=== PATIENT | male | born 1945 | race Caucasian/White ===

== ENCOUNTER 2016-07-26 13:52 | Outpatient (CLI) | payer MEDICARE, OTHER | END 2016-07-26 13:53 | disposition home or self-care (01) | DX: E11.9 Type 2 diabetes mellitus without complications (principal); E78.5 Hyperlipidemia, unspecified; I10 Essential (primary) hypertension; E03.9 Hypothyroidism, unspecified; R10.9 Unspecified abdominal pain; J44.9 Chronic obstructive pulmonary disease, unspecified; N40.1 Benign prostatic hyperplasia with lower urinary tract symptoms | CPT/HCPCS: 36415; 80053; 80061; 82043; 83036; 84443; 85025; G0103 ==

== ENCOUNTER 2016-08-06 10:56 | Outpatient (CLI) | payer MEDICARE, OTHER | END 2016-08-06 10:57 | disposition home or self-care (01) | DX: R10.9 Unspecified abdominal pain (principal); K21.9 Gastro-esophageal reflux disease without esophagitis ==

== ENCOUNTER 2016-10-02 12:02 | Outpatient (CLI) | payer MEDICARE, OTHER | END 2016-10-02 23:59 | DX: E03.9 Hypothyroidism, unspecified (principal) ==

== ENCOUNTER 2016-12-30 08:52 | Outpatient (CLI) | payer MEDICARE, OTHER ==
[2016-12-30 14:47] LABS: HEMOGLOBIN A1C 0.72 g/dL
== END 2016-12-30 08:53 | disposition home or self-care (01) ==
LOC: LAB.WCP 08:52
PROVIDERS: ATTEND Family Medicine
DX: E11.9 Type 2 diabetes mellitus without complications (principal)
CPT/HCPCS: 36415; 83036

== ENCOUNTER 2017-02-18 11:08 | Outpatient (CLI) | payer MEDICARE, OTHER ==
--- NOTE | 2017-02-18 17:11 | CT Report ---
HIGH-RESOLUTION CHEST CT WITHOUT CONTRAST: 02/18/2017 CLINICAL INDICATION: Exertional dyspnea, question interstitial lung disease. TECHNIQUE: Axial prone inspiratory, supine inspiratory, supine expiratory, 1 mm thick slices were ob tained every 20 mm, as well as a conventional noncontrast chest CT sequence. No previous CT is avail able for comparison. In accordance with CT protocol optimization, one or more of the following dose reduction techniques w ere utilized for this exam: automated exposure control, adjustment of mA and/or KV based on patient size, or use of iterative reconstructive technique. FINDINGS: The heart and great vessels demonstrate mild atherosclerotic calcification. No hilar or m ediastinal lymphadenopathy is present. The lungs demonstrate emphysema, with mild peripheral fibrosi s. Bibasilar bronchiectasis is present. No significant air trapping is seen. No suspicious pulmona ry nodule or mass lesion is appreciated. No effusion or pneumothorax is present. Limited evaluation of upper abdominal structures demonstrates normal adrenal glands. Osseous structures demonstrate de generative changes. IMPRESSION: EMPHYSEMA AND MILD FIBROSIS, WITH BIBASILAR BRONCHIECTASIS. NO EVIDENCE OF INTERSTITIAL LUNG DISEASE. JOB #: [id number] EXT JOB #:[id number]
== END 2017-02-18 11:09 | disposition home or self-care (01) ==
LOC: DI 11:08
PROVIDERS: ATTEND Internal Medicine Critical Care Medicine
DX: R06.09 Other forms of dyspnea (principal); J43.9 Emphysema, unspecified; J84.10 Pulmonary fibrosis, unspecified; J47.9 Bronchiectasis, uncomplicated; E66.01 Morbid (severe) obesity due to excess calories; E11.9 Type 2 diabetes mellitus without complications; Z87.891 Personal history of nicotine dependence
CPT/HCPCS: 71250; 93306

== ENCOUNTER 2017-04-04 15:25 | Outpatient (CLI) | payer MEDICARE, OTHER | END 2017-04-04 15:26 | disposition home or self-care (01) | LOC: LAB 15:25 | PROVIDERS: ATTEND Internal Medicine Critical Care Medicine | DX: J44.9 Chronic obstructive pulmonary disease, unspecified (principal) | CPT/HCPCS: 36415; 81599 ==

== ENCOUNTER 2017-04-22 08:00 | Outpatient (CLI) | payer MEDICARE, OTHER ==
[2017-04-22 19:19] LABS: CALCIUM 9.4 mg/dL (8.5-10.3); CREATININE 0.8 mg/dL (0.6-1.2); POTASSIUM 4.3 mmol/L (3.5-5.0)
[2017-04-22 20:45] LABS: HEMOGLOBIN A1C 0.69 g/dL
== END 2017-04-22 08:01 | disposition home or self-care (01) ==
LOC: LAB.WCP 08:00
PROVIDERS: ATTEND Family Medicine
DX: J44.9 Chronic obstructive pulmonary disease, unspecified (principal); E11.9 Type 2 diabetes mellitus without complications; I10 Essential (primary) hypertension; F32.9 Major depressive disorder, single episode, unspecified
CPT/HCPCS: 36415; 80048; 83036

== ENCOUNTER 2017-07-29 11:40 | Outpatient (CLI) | payer MEDICARE, OTHER ==
[2017-07-29 19:25] LABS: CALCIUM 8.8 mg/dL (8.5-10.3); CREATININE 0.8 mg/dL (0.6-1.2)
[2017-07-29 19:26] LABS: HB2 TOTAL 17.6 g/dL; HEMOGLOBIN A1C 1.06 g/dL; HEMOGLOBIN A1C % 7.7 % (4.6-6.2)
== END 2017-07-29 11:41 ==
LOC: LAB.WCP 11:40
PROVIDERS: ATTEND Family Medicine
DX: J44.9 Chronic obstructive pulmonary disease, unspecified (principal); E11.9 Type 2 diabetes mellitus without complications; I10 Essential (primary) hypertension; M51.36 Other intervertebral disc degeneration, lumbar region
CPT/HCPCS: 36415; 80048; 83036

== ENCOUNTER 2017-10-20 08:00 | Outpatient (CLI) | payer MEDICARE, OTHER ==
[2017-10-20 12:55] LABS: BASOPHILS % (AUTO) 0.5 %; EOSINOPHILS # (AUTO) 0.3 10^3/uL (0.0-0.7); EOSINOPHILS % (AUTO) 3.5 %; HGB - HEMOGLOBIN 15.7 g/dL (14.0-18.0); LYMPHOCYTES # (AUTO) 2.7 10^3/uL (1.5-3.5); MEAN CORPUSCULAR HEMOGLOBIN 30.1 pg (27.0-31.0); MEAN CORPUSCULAR HGB CONC 33.4 g/dL (32.0-36.0); MEAN CORPUSCULAR VOLUME 90.3 fL (80.0-94.0); MEAN PLATELET VOLUME 7.8 fL (7.4-11.4); MONOCYTES # (AUTO) 0.9 10^3/uL (0.0-1.0); MONOCYTES % (AUTO) 10.5 %; NEUTROPHILS # (AUTO) 4.8 10^3/uL (1.5-6.6); NEUTROPHILS % (AUTO) 54.5 %; PLT - PLATELET COUNT 198 10^3/uL (130-450); RED CELL DISTRIBUTION WIDTH 13.8 % (12.0-15.0); WHITE BLOOD COUNT 8.8 x10^3/uL (4.8-10.8)
[2017-10-20 13:12] LABS: HB2 TOTAL 18.5 g/dL; HEMOGLOBIN A1C 0.78 g/dL
[2017-10-20 13:14] LABS: ALBUMIN 4.3 g/dL (3.2-5.5); ALBUMIN/GLOBULIN RATIO 1.7 (1.0-2.2); ALKALINE PHOSPHATASE 45 IU/L (42-121); ALT ALANINE AMINOTRANSFERASE 52 IU/L (10-60); AST ASPARTATE AMINOTRANSFERASE 36 IU/L (10-42); BILIRUBIN,TOTAL 0.9 mg/dL (0.2-1.0); BUN - BLOOD UREA NITROGEN 13 mg/dL (6-20); CALCIUM 8.6 mg/dL (8.5-10.3); CARBON DIOXIDE - CO2 31 mmol/L (21-32); CHLORIDE 107 mmol/L (101-111); CHOL/HDL RATIO 4.4 (<5.0); CHOLESTEROL 128 mg/dL; CREATININE 0.8 mg/dL (0.6-1.2); GFR - MDRD 95 (>89); GLUCOSE 77 mg/dL (70-100); HDL CHOLESTEROL 29 mg/dL; LDL CHOLESTEROL,CALCULATED 65 mg/dL; LDL/HDL RATIO 2.2 (<3.6); SODIUM 142 mmol/L (135-145); TOTAL PROTEIN 6.8 g/dL (6.7-8.2); VLDL CHOLESTEROL 34 mg/dL
== END 2017-10-20 08:01 | disposition home or self-care (01) ==
LOC: LAB.WCP 08:00
PROVIDERS: ATTEND Family Medicine
DX: J44.9 Chronic obstructive pulmonary disease, unspecified (principal); E11.9 Type 2 diabetes mellitus without complications; E78.5 Hyperlipidemia, unspecified; I10 Essential (primary) hypertension; E03.9 Hypothyroidism, unspecified; G47.30 Sleep apnea, unspecified
CPT/HCPCS: 36415; 80053; 80061; 82043; 83036; 83721; 84443; 85025

== ENCOUNTER 2018-01-21 08:00 | Outpatient (CLI) | payer MEDICARE, OTHER ==
[2018-01-21 19:18] LABS: CALCIUM 9.3 mg/dL (8.5-10.3)
[2018-01-21 19:25] LABS: HB2 TOTAL 16.9 g/dL
[2018-01-21 21:33] LABS: HEMOGLOBIN A1C 0.78 g/dL; HEMOGLOBIN A1C % 6.4 % (4.6-6.2)
== END 2018-01-21 08:01 | disposition home or self-care (01) ==
LOC: LAB.WCP 08:00
PROVIDERS: ATTEND Family Medicine
DX: J44.9 Chronic obstructive pulmonary disease, unspecified (principal); E11.9 Type 2 diabetes mellitus without complications; I10 Essential (primary) hypertension
CPT/HCPCS: 36415; 80048; 83036

== ENCOUNTER 2018-04-15 15:30 | Outpatient (CLI) | payer MEDICARE, OTHER ==
[2018-04-15 15:49] LABS: BASOPHILS # (AUTO) 0.1 10^3/uL (0.0-0.1); BASOPHILS % (AUTO) 0.8 %; EOSINOPHILS # (AUTO) 0.9 10^3/uL (0.0-0.7); EOSINOPHILS % (AUTO) 9.7 %; HGB - HEMOGLOBIN 15.4 g/dL (14.0-18.0); LYMPHOCYTES # (AUTO) 1.9 10^3/uL (1.5-3.5); LYMPHOCYTES % (AUTO) 20.9 %; MEAN CORPUSCULAR HEMOGLOBIN 30.3 pg (27.0-31.0); MEAN CORPUSCULAR HGB CONC 33.9 g/dL (32.0-36.0); MEAN CORPUSCULAR VOLUME 89.4 fL (80.0-94.0); MEAN PLATELET VOLUME 7.3 fL (7.4-11.4); MONOCYTES # (AUTO) 0.8 10^3/uL (0.0-1.0); MONOCYTES % (AUTO) 9.1 %; NEUTROPHILS # (AUTO) 5.3 10^3/uL (1.5-6.6); NEUTROPHILS % (AUTO) 59.5 %; PLT - PLATELET COUNT 218 10^3/uL (130-450); RED BLOOD COUNT 5.07 10^6/uL (4.70-6.10); RED CELL DISTRIBUTION WIDTH 13.2 % (12.0-15.0); WHITE BLOOD COUNT 8.9 x10^3/uL (4.8-10.8)
[2018-04-15 16:02] LABS: ALBUMIN 4.3 g/dL (3.2-5.5); ALBUMIN/GLOBULIN RATIO 1.7 (1.0-2.2); BILIRUBIN,TOTAL 0.5 mg/dL (0.2-1.0); CALCIUM 8.9 mg/dL (8.5-10.3); CREATININE 0.7 mg/dL (0.6-1.2); TOTAL PROTEIN 6.9 g/dL (6.7-8.2)
== END 2018-04-15 15:31 | disposition home or self-care (01) ==
LOC: LAB 15:30
PROVIDERS: ATTEND Internal Medicine Gastroenterology
DX: Z01.812 Encounter for preprocedural laboratory examination (principal); I10 Essential (primary) hypertension; J44.9 Chronic obstructive pulmonary disease, unspecified
CPT/HCPCS: 36415; 80053; 85025; 93005

== ENCOUNTER 2018-11-18 08:00 | Outpatient (CLI) | payer MEDICARE, OTHER ==
[2018-11-18 12:51] LABS: BASOPHILS % (AUTO) 0.6 %; EOSINOPHILS # (AUTO) 0.3 10^3/uL (0.0-0.7); EOSINOPHILS % (AUTO) 4.7 %; HGB - HEMOGLOBIN 15.3 g/dL (14.0-18.0); LYMPHOCYTES # (AUTO) 1.6 10^3/uL (1.5-3.5); MEAN CORPUSCULAR HEMOGLOBIN 30.2 pg (27.0-31.0); MEAN CORPUSCULAR HGB CONC 33.5 g/dL (32.0-36.0); MEAN PLATELET VOLUME 7.5 fL (7.4-11.4); MONOCYTES # (AUTO) 0.8 10^3/uL (0.0-1.0); NEUTROPHILS # (AUTO) 4.6 10^3/uL (1.5-6.6); NEUTROPHILS % (AUTO) 62.7 %; PLT - PLATELET COUNT 202 10^3/uL (130-450); RED BLOOD COUNT 5.08 10^6/uL (4.70-6.10); RED CELL DISTRIBUTION WIDTH 12.8 % (12.0-15.0); WHITE BLOOD COUNT 7.4 x10^3/uL (4.8-10.8)
[2018-11-18 13:34] LABS: ALBUMIN 3.9 g/dL (3.2-5.5); ALBUMIN/GLOBULIN RATIO 1.6 (1.0-2.2); ALKALINE PHOSPHATASE 42 IU/L (42-121); ALT ALANINE AMINOTRANSFERASE 44 IU/L (10-60); AST ASPARTATE AMINOTRANSFERASE 31 IU/L (10-42); BILIRUBIN,TOTAL 0.6 mg/dL (0.2-1.0); BUN - BLOOD UREA NITROGEN 19 mg/dL (6-20); CALCIUM 8.8 mg/dL (8.5-10.3); CARBON DIOXIDE - CO2 25 mmol/L (21-32); CHLORIDE 105 mmol/L (101-111); CHOL/HDL RATIO 3.6 (<5.0); CHOLESTEROL 104 mg/dL; CREATININE 0.7 mg/dL (0.6-1.2); GFR - MDRD 110 (>89); GLUCOSE 140 mg/dL (70-100); HDL CHOLESTEROL 29 mg/dL; LDL CHOLESTEROL,CALCULATED 38 mg/dL; LDL/HDL RATIO 1.3 (<3.6); SODIUM 138 mmol/L (135-145); TOTAL PROTEIN 6.4 g/dL (6.7-8.2); VLDL CHOLESTEROL 37 mg/dL
[2018-11-18 13:47] LABS: HB2 TOTAL 16.4 g/dL; HEMOGLOBIN A1C 0.69 g/dL
== END 2018-11-18 08:01 | disposition home or self-care (01) ==
LOC: LAB.WCP 08:00
PROVIDERS: ATTEND Family Medicine
DX: E11.9 Type 2 diabetes mellitus without complications (principal); I10 Essential (primary) hypertension; E78.5 Hyperlipidemia, unspecified
CPT/HCPCS: 36415; 80053; 80061; 82043; 83036; 83721; 85025

== ENCOUNTER 2019-05-27 14:20 | Outpatient (CLI) | payer MEDICARE, OTHER | END 2019-05-27 23:59 | disposition home or self-care (01) | LOC: LAB.R 14:20 | PROVIDERS: ATTEND Family Medicine | DX: N39.0 Urinary tract infection, site not specified (principal) | CPT/HCPCS: 87086 ==

== ENCOUNTER 2020-03-01 10:40 | Outpatient (CLI) | payer MEDICARE, OTHER | END 2020-03-01 23:59 | disposition home or self-care (01) | LOC: LAB.R 10:40 | PROVIDERS: ATTEND Family Medicine | DX: N39.0 Urinary tract infection, site not specified (principal) | CPT/HCPCS: 87086 ==

== ENCOUNTER 2020-03-01 11:29 | Outpatient (CLI) | payer MEDICARE, OTHER | END 2020-03-01 23:59 | disposition critical access hospital (66) | LOC: EMS 11:29 | PROVIDERS: ATTEND Surgery | DX: R55 Syncope and collapse (principal); R03.1 Nonspecific low blood-pressure reading | CPT/HCPCS: A0425; A0427 ==

== ENCOUNTER 2020-03-01 11:55 | Inpatient (IN) | payer MEDICARE, OTHER ==
--- NOTE | 2020-03-01 12:05 | ED Physician Documentation ---
PD HPI SYNCOPE - Stated complaint Stated Complaint: SYNCOPE - Chief complaint Chief Complaint: Neuro - History obtained from History obtained from: Patient - History of Present Illness Witnessed: Witnessed Timing - onset: Today (At PMD for follow up of persistent UTI. Had been on Macrobid for 2 weeks. Urine cloudy with flank pain the past couple days. [place] weak. Got lightheaded with near syncope in office. BP low and improved with fluids.) Duration: Minutes Preceding symptoms: Other (right low back and hip pain.). 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 Pt says was doing okay then with malaise and noted dysuria again the past couple days. Had appt with PMD today regarding this, but got the near syncope in office and sent here by EMS.) Review of Systems Constitutional: reports: Myalgias, Fatigue. denies: Fever, Chills Nose: denies: Rhinorrhea / runny nose, Congestion Throat: denies: Sore throat Cardiac: denies: Chest pain / pressure, Palpitations Respiratory: denies: Dyspnea, Cough GI: reports: Nausea. denies: Abdominal Pain, Abdominal Swelling, Vomiting, Diarrhea : reports: Dysuria. denies: Hematuria (but was very cloudy), Discharge Skin: denies: Rash, Lesions Musculoskeletal: reports: Back pain (right low back and posterior right hip/pelvis with pain the past couple of days.) Neurologic: reports: Generalized weakness. denies: Focal weakness, Numbness PD PAST MEDICAL HISTORY - Past Medical History Cardiovascular: Hypertension, High cholesterol Respiratory: Asthma, COPD, Sleep apnea, CPAP use Endocrine/Autoimmune: Type 2 diabetes GI: Diverticulitis : Other HEENT: Other Psych: Depression Musculoskeletal: Osteoarthritis, Other Derm: None - Past Surgical History Past Surgical History: Yes General: Colonoscopy, EGD Ortho: Other HEENT: Tonsil/Adenoidectomy - Present Medications Home Medications: Ambulatory Orders Medication Instructions Recorded Confirmed Aspirin [Aspirin EC] 81 mg PO QDAC 11/11/12 03/01/20 Ipratropium/Albuterol [Combivent 2 puffs INH QID PRN MDD 6 PUFFS 11/11/12 03/01/20 Respimat] Lisinopril [Prinivil] 30 mg PO QAM 11/11/12 03/01/20 Pregabalin [Lyrica] 75 mg PO BID 11/11/12 03/01/20 Rosuvastatin Calcium [Crestor] 10 mg PO HS 11/11/12 03/01/20 Tiotropium [place] [Spiriva] 1 puffs INH DAILY 11/11/12 03/01/20 metFORMIN [Glucophage] 1,000 mg PO BID 11/11/12 03/01/20 Finasteride [Proscar] 5 mg PO DAILY 03/01/20 03/01/20 Fluticasone/Salmeterol [Advair 2 puffs INH DAILY 03/01/20 03/01/20 250-50 Diskus] Levothyroxine Sodium [Synthroid] 200 mcg PO DAILY 03/01/20 03/01/20 Tamsulosin [Flomax] 0.4 mg PO DAILY 03/01/20 03/01/20 - Allergies Allergies/Adverse Reactions: Allergies Allergy/AdvReac Type Severity Reaction Status Date / Time celecoxib [From Celebrex] Allergy Mild Rash Verified 03/01/20 12:04 Sulfa (Sulfonamide Allergy Mild unknown Verified 03/01/20 12:04 Antibiotics) doxycycline Allergy Rash Verified 03/01/20 12:04 gabapentin [From Neurontin] Allergy Rash Verified 03/01/20 12:04 - Living Situation Living Situation: reports: Alone Living Arrangement: reports: At home - Social History Does the pt smoke?: No Smoking Status: Never smoker Does the pt drink ETOH?: Yes PD ED PE NORMAL - Vitals Vital signs reviewed: Yes (relatively low BP even after IV fluids enroute. ) - General General: Alert and oriented X 3, No acute distress, Well developed/nourished - HEENT HEENT: Moist mucous membranes, Pharynx benign - Neck Neck: Supple, no meningeal sign, No adenopathy - Cardiac Cardiac: RRR, No murmur - Respiratory Respiratory: Clear bilaterally - Abdomen Abdomen: Normal bowel sounds, Soft, Non distended, No organomegaly, Other (some tender suprapubic and right CVA area. No guarding nor percussion tenderness. ) - Back Back: No spinal TTP - Derm Derm: Normal color, Warm and dry - Extremities Extremities: No tenderness to palpate, Normal ROM s pain, No edema, No calf tenderness / cord - Neuro Neuro: Alert and oriented X 3, No motor deficit, Normal speech Eye Opening: Spontaneous Motor: Obeys Commands Verbal: Oriented GCS Score: 15 Results - Vitals Vitals: Vital Signs - 24 hr 03/01/20 11:55 Temperature 36.5 C Heart Rate 86 Respiratory 18 Rate Blood Pressure 107/67 O2 Saturation 99 Oxygen O2 Source Room air - Labs Labs: Laboratory Tests 03/01/20 03/01/20 03/01/20 12:48 12:48 12:48 WBC 12.1 H RBC 4.86 Hgb 15.0 Hct 44.0 MCV 90.5 MCH 30.9 MCHC 34.1 RDW 13.1 Plt Count 305 MPV 8.8 Neut # (Auto) 8.8 H Lymph # (Auto) 1.1 L Emmet # (Auto) 1.7 H Eos # (Auto) 0.2 Baso # (Auto) 0.1 Absolute Nucleated RBC 0.00 Nucleated RBC % 0.0 Manual Slide Review Indicated Platelet Estimate Platelet Morphology RBC Morph Micro Appear 2+ ANISOCYTOSIS Sodium 134 L Potassium 6.0 H* Chloride 99 L Carbon Dioxide 25 Anion Gap 10.0 BUN 58 H Creatinine 1.7 H Estimated GFR (MDRD) 39 L Glucose 101 H Glycated Hemoglobin Estim Average Glucose Lactic Acid 1.1 Calcium 9.1 Magnesium 1.7 Total Bilirubin 0.8 AST 20 ALT 36 Alkaline Phosphatase 77 Troponin I High Sens B-Natriuretic Peptide Total Protein 6.9 Albumin 3.6 Globulin 3.3 Albumin/Globulin Ratio 1.1 Lipase 23 Urine Color Urine Clarity Urine pH Ur Specific Sula Urine Protein Urine Glucose (UA) Urine Ketones Urine Occult Blood Urine Nitrite Urine Bilirubin Urine Urobilinogen Ur Leukocyte Esterase Urine RBC Urine WBC Urine WBC Clumps Ur Squamous Epith Cells Amorphous Sediment Urine Bacteria Ur Microscopic Review Urine Culture Comments 03/01/20 03/01/20 03/01/20 12:48 12:48 12:48 WBC RBC Hgb Hct MCV MCH MCHC RDW Plt Count MPV Neut # (Auto) Lymph # (Auto) Emmet # (Auto) Eos # (Auto) Baso # (Auto) Absolute Nucleated RBC Nucleated RBC % Manual Slide Review Platelet Estimate Platelet Morphology RBC Morph Micro Appear Sodium Potassium Chloride Carbon Dioxide Anion Gap BUN Creatinine Estimated GFR (MDRD) Glucose Glycated Hemoglobin 5.5 Estim Average Glucose 111 H Lactic Acid Calcium Magnesium Total Bilirubin AST ALT Alkaline Phosphatase Troponin I High Sens 5.0 B-Natriuretic Peptide 20 Total Protein Albumin Globulin Albumin/Globulin Ratio Lipase Urine Color Urine Clarity Urine pH Ur Specific [place]ula Urine Protein Urine Glucose (UA) Urine Ketones Urine Occult Blood Urine Nitrite Urine Bilirubin Urine Urobilinogen Ur Leukocyte Esterase Urine RBC Urine WBC Urine WBC Clumps Ur Squamous Epith Cells Amorphous Sediment Urine Bacteria Ur Microscopic Review Urine Culture Comments 03/01/20 03/01/20 03/01/20 14:05 14:20 15:15 WBC 11.1 H RBC 4.67 L Hgb 14.5 Hct 43.1 MCV 92.3 MCH 31.0 MCHC 33.6 RDW 13.2 Plt Count 278 MPV 8.8 Neut # (Auto) 7.7 H Lymph # (Auto) 1.3 L Emmet # (Auto) 1.7 H Eos # (Auto) 0.3 Baso # (Auto) 0.1 Absolute Nucleated RBC 0.00 Nucleated RBC % 0.0 Manual Slide Review Indicated Platelet Estimate NORMAL (130-450,000) Platelet Morphology 1+ LARGE PLATELETS RBC Morph Micro Appear NORMAL APPEARANCE Sodium Potassium 5.4 H Chloride Carbon Dioxide Anion Gap BUN Creatinine Estimated GFR (MDRD) Glucose Glycated Hemoglobin Estim Average Glucose Lactic Acid Calcium Magnesium Total Bilirubin AST ALT Alkaline Phosphatase Troponin I High Sens B-Natriuretic Peptide Total Protein Albumin Globulin Albumin/Globulin Ratio Lipase Urine Color YELLOW Urine Clarity CLOUDY Urine pH 5.5 Ur Specific Sula 1.025 Urine Protein 100 H Urine Glucose (UA) NEGATIVE Urine Ketones NEGATIVE Urine Occult Blood LARGE H Urine Nitrite POSITIVE H Urine Bilirubin NEGATIVE Urine Urobilinogen 0.2 (NORMAL) Ur Leukocyte Esterase LARGE H Urine RBC 6-10 H Urine WBC >25 H Urine WBC Clumps PRESENT Ur Squamous Epith Cells RARE Squamous Amorphous Sediment Rare Urine Bacteria Moderate H Ur Microscopic Review INDICATED Urine Culture Comments INDICATED 03/01/20 03/01/20 15:15 15:15 WBC RBC Hgb Hct MCV MCH MCHC RDW Plt Count MPV Neut # (Auto) Lymph # (Auto) Emmet # (Auto) Eos # (Auto) Baso # (Auto) Absolute Nucleated RBC Nucleated RBC % Manual Slide Review Platelet Estimate Platelet Morphology RBC Morph Micro Appear Sodium 134 L Potassium 5.6 H Chloride 100 L Carbon Dioxide 24 Anion Gap 10.0 BUN 56 H Creatinine 1.5 H Estimated GFR (MDRD) 46 L Glucose 100 Glycated Hemoglobin Estim Average Glucose Lactic Acid 0.7 Calcium 8.8 Magnesium Total Bilirubin 0.5 AST 18 ALT 35 Alkaline Phosphatase 74 Troponin I High Sens B-Natriuretic Peptide Total Protein 6.6 L Albumin 3.6 Globulin 3.0 Albumin/Globulin Ratio 1.2 Lipase Urine Color Urine Clarity Urine pH Ur Specific Sula Urine Protein Urine Glucose (UA) Urine Ketones Urine Occult Blood Urine Nitrite Urine Bilirubin Urine Urobilinogen Ur Leukocyte Esterase Urine RBC Urine WBC Urine WBC Clumps Ur Squamous Epith Cells Amorphous Sediment Urine Bacteria Ur Microscopic Review Urine Culture Comments - Rads (name of study) abd/pelvic CT Radiology: Prelim report reviewed (normal kidneys and ureters. mild thickened bladder wall c/w cystitis. Diverticulosis without diverticulitis. ), See rad report right hip/pelvis xray Radiology: Prelim report reviewed, EMP read contemporaneously PD MEDICAL DECISION MAKING - ED course Complexity details: re-evaluated patient, considered differential (general weakness, had low BP but is still relatively low after IV fluids. Has nasty urine, along with flank pain, so concern for impending sepsis. ), d/w patient Departure - Departure Disposition: 66 [facility] DC/Xfer Clinical Impression: TUNDE (acute kidney injury), Hyperkalemia, Transient hypotension, Near syncope UTI (urinary tract infection) Qualifiers: Urinary tract infection type: acute pyelonephritis Qualified Code(s): N10 - Acute pyelonephritis Condition: Stable Record reviewed to determine appropriate education?: Yes Discharge Date/Time: 03/01/20 16:18
[2020-03-01] MEDS ORDERED: SODIUM CHLORIDE 0.9% 1,000 ML IV STA ×2 (12:28→13:30)
[2020-03-01] MEDS ORDERED: IOVERSOL 320 100 ML VIAL IVP ONE ×2 (12:50→15:40)
[2020-03-01 12:56] LABS: BASOPHILS # (AUTO) 0.1 10^3/uL (0.0-0.1); BASOPHILS % (AUTO) 0.5 %; EOSINOPHILS # (AUTO) 0.2 10^3/uL (0.0-0.7); LYMPHOCYTES # (AUTO) 1.1 10^3/uL (1.5-3.5); LYMPHOCYTES % (AUTO) 9.1 %; MEAN CORPUSCULAR HEMOGLOBIN 30.9 pg (27.0-31.0); MEAN CORPUSCULAR HGB CONC 34.1 g/dL (32.0-36.0); MEAN CORPUSCULAR VOLUME 90.5 fL (80.0-94.0); MEAN PLATELET VOLUME 8.8 fL (7.4-11.4); MONOCYTES # (AUTO) 1.7 10^3/uL (0.0-1.0); MONOCYTES % (AUTO) 14.3 %; NEUTROPHILS # (AUTO) 8.8 10^3/uL (1.5-6.6); NEUTROPHILS % (AUTO) 73.4 %; PLT - PLATELET COUNT 305 10^3/uL (130-450); RED BLOOD COUNT 4.86 10^6/uL (4.70-6.10); RED CELL DISTRIBUTION WIDTH 13.1 % (12.0-15.0); WHITE BLOOD COUNT 12.1 x10^3/uL (4.8-10.8)
[2020-03-01 13:12] LABS: ALBUMIN 3.6 g/dL (3.2-5.5); ALBUMIN/GLOBULIN RATIO 1.1 (1.0-2.2); BILIRUBIN,TOTAL 0.8 mg/dL (0.2-1.0); CALCIUM 9.1 mg/dL (8.5-10.3); CREATININE 1.7 mg/dL (0.6-1.2); MAGNESIUM 1.7 mg/dL (1.7-2.8); TOTAL PROTEIN 6.9 g/dL (6.7-8.2)
[2020-03-01 13:20] LABS: RBC MORPHOLOGY (MULTIPLE) 2+ ANISOCYTOSIS (NORMAL)
[2020-03-01] MEDS ORDERED: HYDROmorphone 1 MG/ML CARPUJECT IVP STA ×2 (13:29→14:58)
--- NOTE | 2020-03-01 13:31 | XRAY Report ---
PROCEDURE: Hip w/Pelvis 2-3V RT INDICATIONS: right hip pain with walking TECHNIQUE: AP pelvis with lateral view(s) of the bilateral hip(s). COMPARISON: None. FINDINGS: Bones: No fractures or dislocations. Pelvic ring appears intact. No suspicious bony lesions. Mild to moderate bilateral degenerative hip joint space narrowing. Soft tissues: The visualized bowel gas pattern is normal. No suspicious soft tissue calcifications. IMPRESSION: No visualized acute fracture or dislocation. However, occult injury cannot be excluded. Recommend short interval imaging follow-up in 7-10 days as clinically indicated for additional evalua tion. No Reviewed by: Ena Astorga MD on 03/01/2020 1:30 PM PDT Approved by: Ena Astorga MD on 03/01/2020 1:30 PM PDT Station ID: [id number]
--- NOTE | 2020-03-01 14:40 | CT Report ---
PROCEDURE: Abdomen/Pelvis W INDICATIONS: abd/flank pain CONTRAST: IV CONTRAST: Optiray 320 ml: 100 PO CONTRAST: *NO PO CONTRAST TECHNIQUE: After the administration of IV contrast, 5 mm thick sections acquired from the diaphragms to the symp hysis. 5 mm thick coronal and sagittal reformats were acquired. For radiation dose reduction, the f ollowing was used: automated exposure control, adjustment of mA and/or kV according to patient size. COMPARISON: None. FINDINGS: Image quality: Excellent. ABDOMEN: Lung bases: Lung bases are clear. Emphysematous changes with bulla formation are identified. Heart s ize is normal. Solid organs: Liver mildly enlarged with steatosis. Spleen is unremarkable. Gallbladder demonstrate s a punctate minimal dependent calcification. No wall thickening Biliary system is non dilated. Galvan creas enhances normally. No adrenal nodules. Kidneys demonstrate normal size and enhancement, witho ut hydronephrosis. Left renal cysts. Peritoneum and bowel: Bowel loops demonstrate normal wall thickness and caliber. Appendix is unremar kable. Moderate right-sided colonic stool is present. Colonic diverticula are present. No free fluid or air. Nodes and vessels: No retroperitoneal or mesenteric adenopathy by size criteria. Aorta and inferior vena cava are normal in size. Miscellaneous: No ventral hernias. PELVIS: Genitourinary: Bladder wall demonstrates minimal diffuse thickening. Miscellaneous: No inguinal hernias or adenopathy. Bones: No suspicious bony lesions. No vertebral body compression fractures. IMPRESSION: 1. Diverticulosis. 2. Moderate right colonic stool. 3. No nephro or ureterolithiasis. 4. Minimal diffuse bladder wall thickening. This could be secondary to incompletely distended. Becki brian, recommend correlation to cystitis. Reviewed by: Ena Astorga MD on 03/01/2020 2:38 PM PDT Approved by: Ena Astorga MD on 03/01/2020 2:38 PM PDT Station ID: [id number]
[2020-03-01] MEDS ORDERED: cefTRIAXone 1 GM VIAL IVP STA (14:45)
[2020-03-01 14:56] LABS: BILIRUBIN,URINE NEGATIVE (NEGATIVE); GLUCOSE, URINE (UA) NEGATIVE (NEGATIVE); KETONES,URINE (UA) NEGATIVE (NEGATIVE); LEUKOCYTE ESTERASE, URINE LARGE (NEGATIVE); NITRITE,URINE POSITIVE (NEGATIVE); OCCULT BLOOD,URINE LARGE (NEGATIVE); PH,URINE 5.5 PH (5.0-7.5); PROTEIN,URINE 100 mg/dL (NEGATIVE); UROBILINOGEN,URINE 0.2 (NORMAL) E.U./dL (NORMAL)
[2020-03-01] MEDS ORDERED: GENTAMICIN 80MG VIAL 400 MG in SODIUM CHLORIDE 0.9% 100ML 100 ML IV STA (14:59)
[2020-03-01 15:00] LABS: CLARITY,URINE CLOUDY (CLEAR)
[2020-03-01 15:15] LABS: AMORPHOUS SEDIMENT,UR Rare /LPF; BACTERIA,URINE Moderate /HPF (None Seen); SQUAMOUS EPITHELIAL CELL,UR RARE Squamous (<= Few); WBC CLUMPS,URINE PRESENT
[2020-03-01] MEDS ORDERED: SODIUM CHLORIDE FLUSH 0.9% 10 ML SYRINGE IVP PRN (15:20)
[2020-03-01] MEDS ORDERED: GENTAMICIN IV STA (15:25)
[2020-03-01] MEDS ORDERED: SODIUM CHLORIDE 0.9% IV STA (15:25)
[2020-03-01 15:26] LABS: BASOPHILS # (AUTO) 0.1 10^3/uL (0.0-0.1); BASOPHILS % (AUTO) 0.6 %; EOSINOPHILS # (AUTO) 0.3 10^3/uL (0.0-0.7); EOSINOPHILS % (AUTO) 2.5 %; HGB - HEMOGLOBIN 14.5 g/dL (14.0-18.0); LYMPHOCYTES # (AUTO) 1.3 10^3/uL (1.5-3.5); LYMPHOCYTES % (AUTO) 11.3 %; MEAN CORPUSCULAR HGB CONC 33.6 g/dL (32.0-36.0); MEAN CORPUSCULAR VOLUME 92.3 fL (80.0-94.0); MEAN PLATELET VOLUME 8.8 fL (7.4-11.4); MONOCYTES # (AUTO) 1.7 10^3/uL (0.0-1.0); MONOCYTES % (AUTO) 14.9 %; NEUTROPHILS # (AUTO) 7.7 10^3/uL (1.5-6.6); NEUTROPHILS % (AUTO) 70.1 %; PLT - PLATELET COUNT 278 10^3/uL (130-450); RED BLOOD COUNT 4.67 10^6/uL (4.70-6.10); RED CELL DISTRIBUTION WIDTH 13.2 % (12.0-15.0); WHITE BLOOD COUNT 11.1 x10^3/uL (4.8-10.8)
[2020-03-01] MEDS ORDERED: IPRATROPIUM/ALBUTEROL 3 ML NEB INH PRN ×2 (15:35→15:39)
[2020-03-01 15:39] LABS: ALBUMIN 3.6 g/dL (3.2-5.5); ALBUMIN/GLOBULIN RATIO 1.2 (1.0-2.2); BILIRUBIN,TOTAL 0.5 mg/dL (0.2-1.0); CALCIUM 8.8 mg/dL (8.5-10.3); CREATININE 1.5 mg/dL (0.6-1.2); TOTAL PROTEIN 6.6 g/dL (6.7-8.2)
[2020-03-01] MEDS ORDERED: ALBUTEROL NEB 2.5 MG/3 ML INH PRN ×2 (15:40→17:13)
[2020-03-01] MEDS ORDERED: SODIUM POLYSTYRENE SULFONATE 15 GM/60 ML BOTTLE PO STA (15:45)
--- NOTE | 2020-03-01 15:46 | HISTORY & PHYSICAL EXAMINATION ---
Chief Complaint - Chief Complaint Chief Complaint: nearly-syncope History of Present Illness - Admitted From Admitted From:: ER - History Obtained From Records Reviewed: [facility] History obtained from: pt - History of Present Illness HPI Comment/Other: This is a 74 years old male with a past medical history significant for hypertension, hyperlipidemia, hypothyroidism, asthma, COPD, sleep apnea, CPAP use, diabetic type II, diverticulitis, depression, arthritis, BPH and urinary incontinence Who presents the ER for complaint nearly syncope. Patient report from last year February he beginning problem with urination and urinary incontinence. Patient reported he see his urologist for procedure of cystoscopy for his BPH and urinary incontinence, however urologist wanted patient treated for bladder infection first, patient was prescribed Macrobid for 2 weeks. But pt report he still had Urine cloudy with flank pain in the past couple days. Patient went to his PCP office, he [place] weak, Got lightheaded with near syncope in office. Patient denies loss of conscious, denies any injury. SBP was in the 70s BP low, then IVF were started and pt's SBP came up to 118. In routine laboratory test in the ER, patient was found potassium at 6.0, creatinine is at 1.7, patient baseline creatinine was 0.7. WBC was slightly elevated to 12.1. Urinalysis Indicated patient still has urinary tract infection. Patient had CAT scan of abdomen plus Plavix, and x-ray of hip Which show unremarkable. Patient denies chest pain, fever, chill, shortness of breating, abdominal pain, nausea, vomiting. Patient was admitted for further medical management. History - Past Medical History Cardiovascular: reports: Hypertension, High cholesterol Respiratory: reports: Asthma, COPD, Sleep apnea, CPAP use Neuro: reports: None Endocrine/Autoimmune: reports: Type 2 diabetes GI: reports: Diverticulitis : reports: Other HEENT: reports: Other Psych: reports: Depression Musculoskeletal: reports: Osteoarthritis, Other Derm: reports: None MRSA Hx?: No - Past Surgical History General: reports: Colonoscopy, EGD Ortho: reports: Other HEENT: reports: Tonsil/Adenoidectomy - Family & Social History Family History: Mother: Alive and Well, Father: Alive and Well Family History Comment/Other: Patient report his father at 98 years old with a natural cause, Her mother at age 94. He is window. He had 2 children, one at [place], another one at [place]. Both are healthy Social History Notes: Patient denies cigarette smoking, alcohol abuse, He was retired from service. - POLST Patient has POLST: No Meds/Allgy - Home Medications Home Medications: Ambulatory Orders Medication Instructions Recorded Confirmed Aspirin [Aspirin EC] 81 mg PO QDAC 11/11/12 03/01/20 Ipratropium/Albuterol [Combivent 2 puffs INH QID PRN MDD 6 PUFFS 11/11/12 03/01/20 Respimat] Lisinopril [Prinivil] 30 mg PO QAM 11/11/12 03/01/20 Pregabalin [Lyrica] 75 mg PO BID 11/11/12 03/01/20 Rosuvastatin Calcium [Crestor] 10 mg PO HS 11/11/12 03/01/20 Tiotropium [place] [Spiriva] 1 puffs INH DAILY 11/11/12 03/01/20 metFORMIN [Glucophage] 1,000 mg PO BID 11/11/12 03/01/20 Finasteride [Proscar] 5 mg PO DAILY 03/01/20 03/01/20 Fluticasone/Salmeterol [Advair 2 puffs INH DAILY 03/01/20 03/01/20 250-50 Diskus] Levothyroxine Sodium [Synthroid] 200 mcg PO DAILY 03/01/20 03/01/20 Tamsulosin [Flomax] 0.4 mg PO DAILY 03/01/20 03/01/20 - Allergies Allergies/Adverse Reactions: Allergies Allergy/AdvReac Type Severity Reaction Status Date / Time celecoxib [From Celebrex] Allergy Mild Rash Verified 03/01/20 12:04 Sulfa (Sulfonamide Allergy Mild unknown Verified 03/01/20 12:04 Antibiotics) doxycycline Allergy Rash Verified 03/01/20 12:04 gabapentin [From Neurontin] Allergy Rash Verified 03/01/20 12:04 Review of Systems - Constitutional Constitutional: denies: Fatigue, Fever, Chills, Malaise, Weakness, Poor appetite, Diaphoresis, Night sweats - Eyes Eyes: denies: Pain, Blurred vision, Spots in vision, Field loss, Vision loss, Dipolpia - Ears, Nose & Throat Ears, Nose & Throat: denies: Ear pain, Hearing aids, Vertigo, Nosebleeds, Nasal congestion, Postnasal drainage, Bleeding gums - Cardiovascular Cariovascular: reports: Lightheadedness, Syncope. denies: Irregular heart rate, Palpitations, Chest pain, Exertional dyspnea, Decr. exercise tolerance - Respiratory Respiratory: denies: Cough, Sputum production, Wheezing, Snoring, Hemoptysis, Orthopnea, SOB at rest, SOB with exertion - Gastrointestinal Gastrointestinal: denies: Abdominal pain, Abdominal distention, Constipation, Diarrhea, Rectal bleeding, Black stools, Bloody stools, Nausea, Vomiting, Víctor blood emesis - Genitourinary Genitourinary: reports: Incontinence. denies: Dysuria, Frequency, Urgency, Hematuria - Musculoskeletal Musculoskeletal: denies: Muscle pain, Muscle aches, Stiffness, Limited range of motion - Integumentary Integumentary: denies: Pruritis, Lesions, Pigment changes, Nail changes - Neurological Neurological: denies: General weakness, Focal weakness, Headache, Numbness, Memory problems, Pre-existing deficit, Abnormal gait, Seizures, Incoordination, Slurred speech - Psychiatric Psychiatric: denies: Suicidal, Delusions, Hallucinations, Homicidal - Endocrine Endocrine: denies: Polyuria, Polydypsia, Polyphagia - Hematologic/Lymphatic Hematologic/Lymphatic: denies: Anemia, Petechiae, Blood clots, Lymphadenopathy, Bleeding tendencies Exam - Vital Signs Vital Signs: Vital Signs x48h Temp Pulse Resp BP Pulse Ox 03/01/20 11:55 36.5 C 86 18 107/67 99 - Physical Exam General Appearance: positive: No acute distress, Alert. negative: Lethargic Eyes Bilateral: positive: Normal inspection, PERRL, No lid inflammation ENT: positive: ENT inspection nml, No signs of dehydration. negative: Purulent nasal drainage Neck: positive: Nml inspection, Thyroid nml, Trachea midline. negative: Thyromegaly, Stiff neck, Tracheal deviation Respiratory: positive: Chest non-tender, No respiratory distress, Breath sounds nml Cardiovascular: positive: Regular rate & rhythm, No murmur. negative: Tach ycardia, Bradycardia, Systolic murmur, Diastolic murmur Peripheral Pulses: positive: 2+ Abdomen: positive: Non-tender, No organomegaly, Nml bowel sounds, No distention. negative: Tenderness, Guarding, Rebound Back: positive: Nml inspection. negative: CVA tenderness (R), CVA tenderness (L) Skin: positive: Color nml, No rash, Warm, Dry. negative: Cyanosis, Diaphoresis, Pallor Extremities: positive: Non-tender, Nml appearance. negative: Calf tenderness, Santa's sign/cords Neurologic/Psychiatric: positive: Oriented x3, Motor nml, Sensation nml, Mood/affect nml. negative: Weakness, Sensory loss, Facial droop, Slurred/abnml speech, Depressed mood/affect Conclusion/Plan - Problem List (1) Near syncope Conclusion/Plan: Patient had near any syncope in his primary care office and his blood pressure dropped to 70s. Patient denies loss conscious or any injury. Patient creatinine is 1.7, patient creatinine usually is 0.7. Clinically patient present dehydration. We will check echo, we will continue chicken tender patient, It is likely caused by dehydration and poor perfusion. We will hold patient home blood pressure medicine. Patient was given intravenous fluid of two bags in the ER, we will continue give intravenous IV fluids, and laboratory geneticist and v ital signs monitor. fall precaution. (2) UTI (urinary tract infection) Conclusion/Plan: Patient is likely failed for oral antibiotics as out-pt. Urinalysis still indicated patient has a urinary tract infection. ER started with Rocephin for patient, we will continue Rocephin treated for urinary tract infection, UA culture is pending, we will follow-up Qualifiers: Urinary tract infection type: acute pyelonephritis Qualified Code(s): N10 - Acute pyelonephritis (3) Transient hypotension Conclusion/Plan: Patient had transient hypotension in the PCP office , then patient had nearly syncope in his primary care office. Troponin is negative for acute SC. it Is likely caused by patient dehydration. We will hydration to the patient with intravenous IV fluids. Hold home blood pressure medicine (4) TUNDE (acute kidney injury) Conclusion/Plan: Patient creatinine is 1.7, his base line creatinine is 0.7, patient clinically show dehydration, we will give patient intravenous IV fluids, hold nephrologic toxic agents, Continue laboratory geneticist (5) Hyperkalemia Conclusion/Plan: Patient potassium 6.0, likely caused by patient TUNDE and dehydration. We will give patient 1 time kayexalate, Continue hydration with intravenous IV fluids, continue laboratory geneticist. (6) BPH (benign prostatic hyperplasia) Conclusion/Plan: Patient has a history of BPH, we will resume home home medication Flomax and proscar (7) HTN (hypertension) Conclusion/Plan: Patient had transient hypotension now, we will hold the home medication lisinopril, continue intravenous IV fluids, continue vital signs monitor (8) Hypothyroidism Conclusion/Plan: We will check TSH, resume home Synthroid (9) COPD (chronic obstructive pulmonary disease) Conclusion/Plan: Patient has a history of COPD with asthma, we will resume home albuterol and Duoneb breathing treatment as needed (10) Weakness Conclusion/Plan: Patient present weakness and near syncope in his primary care office, we will consult with physical therapist and occupational therapist. - Lab Results Fish Bones: 03/01/20 15:15 03/01/20 15:15 Core Measures - Anticipated LOS I expect patient to be DC'd or transferred within 96 hours.: Yes - DVT/VTE - Prophylaxis VTE/DVT Device ordered at admit?: Yes VTE/DVT Prophylaxis med ordered at admit?: Yes
[2020-03-01 16:10] LABS: HB2 TOTAL 15.5 g/dL; HEMOGLOBIN A1C 0.57 g/dL; HEMOGLOBIN A1C % 5.5 % (4.6-6.2)
[2020-03-01 16:13] LABS: PLATELET ESTIMATE, MANUAL NORMAL (130-450,000) (NORMAL); PLATELET MORPHOLOGY 1+ LARGE PLATELETS (NORMAL); RBC MORPHOLOGY (MULTIPLE) NORMAL APPEARANCE (NORMAL)
--- NOTE | 2020-03-01 16:17 | PHARMACY PROGRESS NOTE ---
- Best Possible Medication History Admit Date and Time: 03/01/20 1520 Processed by: Pharmacy Medication History completed: Yes Patient Interview: Completed Secondary Source(s): Pharmacy records (PATIENT INTERVIEWED BY FRUIT TESTER. PATIENT ABLE TO CONFIRM SOME HOME MEDICATIONS, OTHER MEDICATIONS ADDED THROUGH PCP RECORDS @ DR. DINERO'S OFFICE ), Insurance records As the person ultimately responsible for medication therapy, providers are able to order a medication from an existing home medication list in [facility] via the "Reconcile Routine" prior to Confirmation of that medication by media production support manager. Such practice is discouraged except when the physician, in their clinical judgment, deems that a medical need exists for a medication without regard to previous use.
[2020-03-01] MEDS: SODIUM CHLORIDE 0.9% 1,000 ML IV SCH (17:16)
[2020-03-01] MEDS: INSULIN ASPART 300 UNIT/3 ML PEN SUBQ SCH ×2 (17:16→21:46)
[2020-03-01] MEDS: SODIUM CHLORIDE FLUSH 0.9% 10 ML SYRINGE IVP SCH (17:16)
[2020-03-01] MEDS: HYDROcod/ACETAM 5/325 MG TABLET PO PRN (17:26)
[2020-03-01] MEDS: BUDESONIDE 0.5 MG/2 ML NEB INH SCH (19:27)
[2020-03-01] MEDS: FORMOTEROL FUMARATE NEB 20 MCG/2 ML INH SCH (19:27)
[2020-03-01] MEDS: ONDANSETRON 4 MG/2 ML VIAL IVP PRN (21:09)
[2020-03-01] MEDS: PREGABALIN 25 MG CAPSULE PO SCH (21:39)
[2020-03-01] MEDS: HYDROmorphone 1 MG/ML CARPUJECT IVP PRN (21:39)
[2020-03-01] MEDS: HEPARIN 5,000 UNIT/ML VIAL SUBQ SCH (21:41)
[2020-03-02] MEDS: SODIUM CHLORIDE FLUSH 0.9% 10 ML SYRINGE IVP SCH ×3 (00:17→17:23)
[2020-03-02] MEDS: HYDROcod/ACETAM 5/325 MG TABLET PO PRN ×2 (00:18→11:26)
[2020-03-02] MEDS: ACETAMINOPHEN 325 MG TABLET PO PRN ×2 (00:18→11:39)
[2020-03-02] MEDS: SODIUM CHLORIDE 0.9% 1,000 ML IV SCH (00:22)
[2020-03-02 05:10] LABS: BASOPHILS # (AUTO) 0.1 10^3/uL (0.0-0.1); BASOPHILS % (AUTO) 0.5 %; EOSINOPHILS # (AUTO) 0.1 10^3/uL (0.0-0.7); EOSINOPHILS % (AUTO) 0.8 %; HGB - HEMOGLOBIN 14.6 g/dL (14.0-18.0); LYMPHOCYTES # (AUTO) 0.4 10^3/uL (1.5-3.5); LYMPHOCYTES % (AUTO) 3.4 %; MEAN CORPUSCULAR HEMOGLOBIN 30.4 pg (27.0-31.0); MEAN CORPUSCULAR VOLUME 92.1 fL (80.0-94.0); MEAN PLATELET VOLUME 8.8 fL (7.4-11.4); MONOCYTES # (AUTO) 1.2 10^3/uL (0.0-1.0); MONOCYTES % (AUTO) 9.7 %; NEUTROPHILS # (AUTO) 10.5 10^3/uL (1.5-6.6); PLT - PLATELET COUNT 266 10^3/uL (130-450); RED BLOOD COUNT 4.81 10^6/uL (4.70-6.10); RED CELL DISTRIBUTION WIDTH 13.1 % (12.0-15.0); WHITE BLOOD COUNT 12.3 x10^3/uL (4.8-10.8)
[2020-03-02 05:20] LABS: CALCIUM 8.7 mg/dL (8.5-10.3); CREATININE 1.2 mg/dL (0.6-1.2); MAGNESIUM 1.6 mg/dL (1.7-2.8); PHOSPHORUS 3.6 mg/dL (2.5-4.6)
[2020-03-02] MEDS: PANTOPRAZOLE 40 MG TABLET PO SCH (06:00)
[2020-03-02] MEDS ORDERED: LEVOTHYROXINE 100 MCG TABLET PO SCH (07:00)
[2020-03-02] MEDS ORDERED: DEXTROSE 10% 250 ML IV ONE (07:03)
[2020-03-02] MEDS ORDERED: INSULIN REGULAR HUMAN 300 UNIT/3 ML VIAL IVP ONE (07:03)
[2020-03-02] MEDS ORDERED: MAGNESIUM OXIDE 400 MG TABLET PO SCH (08:00)
[2020-03-02] MEDS: INSULIN ASPART 300 UNIT/3 ML PEN SUBQ SCH ×4 (08:02→21:56)
[2020-03-02] MEDS: FORMOTEROL FUMARATE NEB 20 MCG/2 ML INH SCH ×2 (08:10→21:06)
[2020-03-02] MEDS: BUDESONIDE 0.5 MG/2 ML NEB INH SCH ×2 (08:11→21:06)
[2020-03-02] MEDS: PREGABALIN 25 MG CAPSULE PO SCH ×2 (08:16→21:55)
[2020-03-02] MEDS: SACCHAROMYCES BOULARDII 250 MG CAPSULE PO SCH ×2 (08:16→18:03)
[2020-03-02] MEDS: HYDROmorphone 1 MG/ML CARPUJECT IVP PRN (08:16)
[2020-03-02] MEDS: FINASTERIDE 5 MG TABLET PO SCH (08:17)
[2020-03-02] MEDS: ASPIRIN CHEW 81 MG TABLET PO SCH (08:17)
[2020-03-02] MEDS: ONDANSETRON 4 MG/2 ML VIAL IVP PRN (08:31)
[2020-03-02] MEDS ORDERED: cefTRIAXone 2 GM in SODIUM CHLORIDE 0.9% MINIBAG 100 ML IV SCH (09:00)
[2020-03-02] MEDS: HEPARIN 5,000 UNIT/ML VIAL SUBQ SCH ×2 (11:17→21:55)
[2020-03-02] MEDS: TAMSULOSIN 0.4 MG CAPSULE PO SCH (11:38)
[2020-03-02] MEDS ORDERED: SODIUM CHLORIDE 0.9% 1,000 ML IV SCH ×2 (13:00→15:01)
--- NOTE | 2020-03-02 15:05 | PROVIDER PROGRESS NOTE ---
Assessment/Plan - Problem List (1) Fever Assessment/Plan: Patient Had fever 39.3 degrees on today, WBC still slightly elevated, patient has a normal blood pressure. Blood culture is still pending but the urinalysis indicated negative rods in the culture, sensitivities pending. Order chest x-ray is pending. Patient might have bacteremia. At this time we continue Rocephin antibiotics, Continue gently intravenous IV fluids. Give patient Tylenol as needed. If patient continue to have fever on tomorrow, then we will do the blood culture again. (2) Near syncope Conclusion/Plan: 03/02, Patient has nearly syncope, he denied loss of conscious. EKG show sinus rhythm. Troponin negative. Echo review preserved EF, but with moderate pulmonary hypertension and moderate Abnormal right heart pressure. It is likely caused by significantly Dehydration and infection, possible bacteremia. Patient had near any syncope in his primary care office and his blood pressure dropped to 70s. Patient denies loss conscious or any injury. Patient creatinine is 1.7, patient creatinine usually is 0.7. Clinically patient present dehydration. We will check echo, we will continue front desk monitor patient, It is likely caused by dehydration and poor perfusion. We will hold patient home blood pressure medicine. Patient was given intravenous fluid of two bags in the ER, we will continue give intravenous IV fluids, and gambling monitor and vital signs monitor. fall precaution. (3) UTI (urinary tract infection) Conclusion/Plan: 03/02Urine culture show negative rods, sensitivity is pending, We will continue Rocephin. Patient is likely failed for oral antibiotics as out-pt. Urinalysis still indicated patient has a urinary tract infection. ER started with Rocephin for patient, we will continue Rocephin treated for urinary tract infection, UA culture is pending, we will follow-up (4) Transient hypotension Conclusion/Plan: 820,Resolved Patient had transient hypotension in the PCP office , then patient had nearly syncope in his primary care office. Troponin is negative for acute NE. it Is likely caused by patient dehydration. We will hydration to the patient with intravenous IV fluids. Hold home blood pressure medicine (5) TUNDE (acute kidney injury) Conclusion/Plan: 820,Significantly improved, creatinine 1.2 from previous 1.7 Patient creatinine is 1.7, his base line creatinine is 0.7, patient clinically show dehydration, we will give patient intravenous IV fluids, hold nephrologic toxic agents, Continue gambling monitor (6) Hyperkalemia Conclusion/Plan: 820, patient potassium still 5.6 even after Kayexalate, order Order 5 units insulin, Continue gambling monitor Patient potassium 6.0, likely caused by patient TUNDE and dehydration. We will give patient 1 time kayexalate, Continue hydration with intravenous IV fluids, continue gambling monitor. (7) BPH (benign prostatic hyperplasia) Conclusion/Plan: Patient has a history of BPH, we will resume home home medication Flomax and proscar (8) HTN (hypertension) Conclusion/Plan: Patient had transient hypotension now, we will hold the home medication lisino pril, continue intravenous IV fluids, continue vital signs monitor (9) Hypothyroidism Conclusion/Plan: 820, TSH is low, reduced Synthroid to 175 mcg daily,Follow-up PCP for further management We will check TSH, resume home Synthroid (10) COPD (chronic obstructive pulmonary disease) Conclusion/Plan: 820, stable, continue home medication and breathing treatment as needed Patient has a history of COPD with asthma, we will resume home albuterol and Duoneb breathing treatment as needed (11) Weakness Conclusion/Plan: Patient present weakness and near syncope in his primary care office, we will consult with physical therapist and occupational therapist. (3) UTI (urinary tract infection) Qualifiers: Urinary tract infection type: acute pyelonephritis Qualified Code(s): N10 - Acute pyelonephritis - Current Meds Current Meds: Current Medications Generic Name Dose Route Start Last Admin Trade Name Freq PRN Reason Stop Dose Admin Acetaminophen 650 mg 03/01/20 15:20 03/02/20 11:39 Tylenol PO 650 mg Q4HR PRN Administration Pain 1 to 4 Hydrocodone Bitart/Acetaminophen 1 tab 03/01/20 17:14 03/02/20 11:26 [place] 5/325 PO 1 tab Q4HR PRN Administration PAIN Aspirin 81 mg 03/02/20 09:00 03/02/20 08:17 St Aspirin PO 81 mg DAILY [facility] Administration Budesonide 0.5 mg 03/01/20 19:00 03/02/20 08:11 Pulmicort INH 0.5 mg RTBID [facility] Administration Finasteride 5 mg 03/02/20 09:00 03/02/20 08:17 Proscar PO 5 mg DAILY [facility] Administration Formoterol Fumarate 20 mcg 03/01/20 19:00 03/02/20 08:10 Perforomist INH 20 mcg RTBID [facility] Administration Heparin Sodium (Porcine) 5,000 unit 03/01/20 21:00 03/02/20 11:17 SUBQ 5,000 unit BID [facility] Administration Hydromorphone HCl 1 mg 03/01/20 18:00 03/02/20 08:16 Dilaudid Inj Carp IVP 1 mg Q4HR PRN Administration PAIN Ceftriaxone Sodium 2 gm/ 100 mls @ 200 mls/hr 03/02/20 09:00 03/02/20 13:10 Sodium Chloride IV Infused DAILY [facility] Infusion Insulin Aspart 1 - 5 unit 03/01/20 17:00 03/02/20 11:44 Novolog SUBQ Not Given 0800,1200,1700,2100 [facility] Protocol Ondansetron HCl 4 mg 03/01/20 15:20 03/02/20 08:31 Zofran Inj IVP 4 mg Q6HR PRN Administration Nausea / Vomiting Pantoprazole Sodium 40 mg 03/02/20 07:00 03/02/20 06:00 Protonix PO 40 mg QDAC [facility] Administration Pregabalin 75 mg 03/01/20 21:00 03/02/20 08:16 Lyrica PO 75 mg BID [facility] Administration Saccharomyces Boulardii 250 mg 03/02/20 08:00 03/02/20 08:16 Florastor PO 250 mg BIDWM [facility] Administration Sodium Chloride 10 ml 03/01/20 17:00 03/02/20 11:44 Normal Saline Flush 0.9% IVP 10 ml 0100,0900,1700 [facility] Administration Tamsulosin HCl 0.4 mg 03/02/20 09:00 03/02/20 11:38 Flomax PO 0.4 mg DAILY [facility] Administration - Lab Result Fish Bone Diagrams: 03/02/20 04:30 03/02/20 04:30 - Additional Planning My Orders: My Active Orders 03/01/20 15:20 Activity Orders [RC] Q2HR IO [RC] IOSHIFT Initiate Bowel Care Protocol [RC] .protocol Initiate Line Care Protocol [RC] QSHIFT Initiate Personal Care Protoco [RC] .protocol Oxygen Therapy [RC] Routine Telemetry- [RC] Q4HR Vital Signs [RC] 0800,1600,0000 Acetaminophen [Tylenol] 650 mg PO Q4HR PRN Ondansetron Inj [Zofran Inj] 4 mg IVP Q6HR PRN Sodium Chloride Flush 0.9% [Normal Saline Flush 0.9%] 10 ml IVP PRN PRN Code Status [OTHERS] Routine Condition of Patient [OTHERS] Routine DVT Prophylaxis [OTHERS] Routine 03/01/20 15:23 IV Insert [RC] .ONCE 03/01/20 15:24 SCDs [RC] QSHIFT 03/01/20 15:39 Ipratropium/Albuterol [Duoneb] 3 ml INH QID PRN 03/01/20 15:42 Blood Glucose Checks - Eating [RC] 0800,1200,1700,2100 Initiate Hypoglycemia Protocol [RC] .protocol 03/01/20 Dinner Carb-controlled Diet [DIET] 03/01/20 17:00 Insulin Aspart [NovoLOG] 1 - 5 unit SUBQ 0800,1200,1700,2100 Sodium Chloride Flush 0.9% [Normal Saline Flush 0.9%] 10 ml IVP 0100,0900,1700 03/01/20 17:13 Nebulizer/MDI Tx. [RC] .BID/ QID PRN/ Q4 PRN Albuterol 2.5 mg INH RTQ4H PRN 03/01/20 17:14 HYDROcod/ACETAM 5/325 [[place] 5/325] 1 tab PO Q4HR PRN 03/01/20 18:00 HYDROmorphone INJ CARP [Dilaudid Inj Carp] 1 mg IVP Q4HR PRN 03/01/20 19:00 Budesonide [Pulmicort] 0.5 mg INH RTBID Formoterol Fumarate [Perforomist] 20 mcg INH RTBID 03/01/20 21:00 Heparin 5,000 unit SUBQ BID Pregabalin [Lyrica] 75 mg PO BID 03/02/20 07:00 Pantoprazole [Protonix] 40 mg PO QDAC 03/02/20 08:00 Saccharomyces Boulardii [Florastor] 250 mg PO BIDWM 03/02/20 09:00 Aspirin Chewable [St Aspirin] 81 mg PO DAILY Finasteride [Proscar] 5 mg PO DAILY Tamsulosin [Flomax] 0.4 mg PO DAILY cefTRIAXone [Rocephin] 2 gm Sodium Chloride 0.9% Minibag [Normal Saline 0.9% Minibag] 100 ml IV DAILY 03/02/20 14:58 Chest 1 View X-Ray [XR] Routine 03/02/20 15:01 Sodium Chloride 0.9% [Normal Saline 0.9%] 1,000 ml IV 83.3 mls/hr 03/02/20 15:31 Echo Transthoracic Complete [ECHO] Routine 03/02/20 21:00 Metoprolol Tartrate [Lopressor] 25 mg PO BID 03/03/20 05:00 BMP - BASIC METABOLIC PANEL [CHEM] DAILYLAB CBC - COMP BLD CT W/AUTO DIFF [HEME] DAILYLAB LIPID Panel [CHEM] DAILYLAB MAGNESIUM [CHEM] DAILYLAB 03/03/20 07:00 Levothyroxine [Synthroid] 100 mcg PO QDAC Levothyroxine [Synthroid] 75 mcg PO QDAC 03/04/20 05:00 BMP - BASIC METABOLIC PANEL [CHEM] DAILYLAB CBC - COMP BLD CT W/AUTO DIFF [HEME] DAILYLAB 03/05/20 05:00 BMP - BASIC METABOLIC PANEL [CHEM] DAILYLAB CBC - COMP BLD CT W/AUTO DIFF [HEME] DAILYLAB 03/06/20 05:00 BMP - BASIC METABOLIC PANEL [CHEM] DAILYLAB CBC - COMP BLD CT W/AUTO DIFF [HEME] DAILYLAB Subjective - Subjective Patient Reports: Feeling Better Objective Vital Signs: Vital Signs - 24 hr 03/01/20 03/01/20 03/01/20 17:14 18:09 23:46 Temperature 36.6 C 36.6 C Heart Rate 78 81 Heart Rate [ Activity] Heart Rate [ 78 Monitoring electrodes] Heart Rate [ Supine] Respiratory 16 16 18 Rate Blood Pressure [Activity] Blood Pressure 129/73 [Right Brachial artery] Blood Pressure [Supine] O2 Saturation 94 94 03/02/20 03/02/20 03/02/20 00:15 00:30 03:25 Temperature 37.9 C H 37.4 C 37.1 C Heart Rate Heart Rate [ Activity] Heart Rate [ 103 H 92 Monitoring electrodes] Heart Rate [ Supine] Respiratory 18 18 Rate Blood Pressure [Activity] Blood Pressure 133/59 H 109/79 [Right Brachial artery] Blood Pressure [Supine] O2 Saturation 94 94 03/02/20 03/02/20 03/02/20 07:50 08:25 10:45 Temperature Heart Rate 84 Heart Rate [ 106 H Activity] Heart Rate [ 86 Monitoring electrodes] Heart Rate [ 102 H Supine] Respiratory 16 18 Rate Blood Pressure 153/81 H [Activity] Blood Pressure 113/61 [Right Brachial artery] Blood Pressure 152/62 H [Supine] O2 Saturation 95 03/02/20 03/02/20 03/02/20 10:50 11:19 13:03 Temperature 39.3 C H 37.2 C Heart Rate Heart Rate [ 106 H Activity] Heart Rate [ 98 92 Monitoring electrodes] Heart Rate [ 102 H Supine] Respiratory 18 18 Rate Blood Pressure 153/81 H [Activity] Blood Pressure 136/110 H [Right Brachial artery] Blood Pressure 152/62 H [Supine] O2 Saturation 92 92 Oxygen O2 Source Nasal cannula I&O (Last 24 Hrs): Intake and Output Totals x24h 02/29/20 03/01/20 03/02/20 23:59 23:59 23:59 Intake Total 3461.25 2317.5 Output Total 500 200 Balance 2961.25 2117.5 General: Alert, Oriented x3, Mild distress HEENT: Atraumatic Neck: Supple Lymphatic: no adenopathy Neuro: Alert, Non Focal, Oriented Times 3 Cardiovascular: Regular rate, Normal S1, Normal S2 Respiratory: Chest non-tender, No respiratory distress Abdomen: Normal bowel sounds, Soft Extremities: Normal pulses - Results Results: Laboratory Results WBC 12.3 x10^3/uL (4.8-10.8) H 03/02/20 04:30 RBC 4.81 10^6/uL (4.70-6.10) 03/02/20 04:30 Hgb 14.6 g/dL (14.0-18.0) 03/02/20 04:30 Hct 44.3 % (42.0-52.0) 03/02/20 04:30 MCV 92.1 fL (80.0-94.0) 03/02/20 04:30 MCH 30.4 pg (27.0-31.0) 03/02/20 04:30 MCHC 33.0 g/dL (32.0-36.0) 03/02/20 04:30 RDW 13.1 % (12.0-15.0) 03/02/20 04:30 Plt Count 266 10^3/uL (130-450) 03/02/20 04:30 MPV 8.8 fL (7.4-11.4) 03/02/20 04:30 Neut # (Auto) 10.5 10^3/uL (1.5-6.6) H 03/02/20 04:30 Lymph # (Auto) 0.4 10^3/uL (1.5-3.5) L 03/02/20 04:30 Menard # (Auto) 1.2 10^3/uL (0.0-1.0) H 03/02/20 04:30 Eos # (Auto) 0.1 10^3/uL (0.0-0.7) 03/02/20 04:30 Baso # (Auto) 0.1 10^3/uL (0.0-0.1) 03/02/20 04:30 Absolute Nucleated RBC 0.00 x10^3/uL 03/02/20 04:30 Nucleated RBC % 0.0 /100WBC 03/02/20 04:30 Manual Slide Review Indicated 03/01/20 15:15 Platelet Estimate NORMAL (130-450,000) (NORMAL) 03/01/20 15:15 Platelet Morphology 1+ LARGE PLATELETS (NORMAL) 03/01/20 15:15 RBC Morph Micro Appear NORMAL APPEARANCE (NORMAL) 03/01/20 15:15 Sodium 136 mmol/L (135-145) 03/02/20 04:30 Potassium 5.6 mmol/L (3.5-5.0) H 03/02/20 04:30 Chloride 104 mmol/L (101-111) 03/02/20 04:30 Carbon Dioxide 23 mmol/L (21-32) 03/02/20 04:30 Anion Gap 9.0 (6-13) 03/02/20 04:30 BUN 42 mg/dL (6-20) H 03/02/20 04:30 Creatinine 1.2 mg/dL (0.6-1.2) 03/02/20 04:30 Estimated GFR (MDRD) 59 (>89) L 03/02/20 04:30 Glucose 133 mg/dL (70-100) H 03/02/20 04:30 Glycated Hemoglobin 5.5 % (4.6-6.2) 03/01/20 12:48 Estim Average Glucose 111 (70-100) H 03/01/20 12:48 Lactic Acid 0.7 mmol/L (0.5-2.2) 03/01/20 15:15 Calcium 8.7 mg/dL (8.5-10.3) 03/02/20 04:30 Phosphorus 3.6 mg/dL (2.5-4.6) 03/02/20 04:30 Magnesium 1.6 mg/dL (1.7-2.8) L 03/02/20 04:30 Total Bilirubin 0.5 mg/dL (0.2-1.0) 03/01/20 15:15 AST 18 IU/L (10-42) 03/01/20 15:15 ALT 35 IU/L (10-60) 03/01/20 15:15 Alkaline Phosphatase 74 IU/L (42-121) 03/01/20 15:15 Troponin I High Sens 5.0 ng/L (2.3-19.7) 03/01/20 12:48 B-Natriuretic Peptide 20 pg/mL (5-100) 03/01/20 12:48 Total Protein 6.6 g/dL (6.7-8.2) L 03/01/20 15:15 Albumin 3.6 g/dL (3.2-5.5) 03/01/20 15:15 Globulin 3.0 g/dL (2.1-4.2) 03/01/20 15:15 Albumin/Globulin Ratio 1.2 (1.0-2.2) 03/01/20 15:15 Lipase 23 U/L (22-51) 03/01/20 12:48 TSH 0.10 uIU/mL (0.34-5.60) L 03/02/20 04:30 Urine Color YELLOW 03/01/20 14:05 Urine Clarity CLOUDY (CLEAR) 03/01/20 14:05 Urine pH 5.5 PH (5.0-7.5) 03/01/20 14:05 Ur Specific [place] 1.025 (1.002-1.030) 03/01/20 14:05 Urine Protein 100 mg/dL (NEGATIVE) H 03/01/20 14:05 Urine Glucose (UA) NEGATIVE mg/dL (NEGATIVE) 03/01/20 14:05 Urine Ketones NEGATIVE mg/dL (NEGATIVE) 03/01/20 14:05 Urine Occult Blood LARGE (NEGATIVE) H 03/01/20 14:05 Urine Nitrite POSITIVE (NEGATIVE) H 03/01/20 14:05 Urine Bilirubin NEGATIVE (NEGATIVE) 03/01/20 14:05 Urine Urobilinogen 0.2 (NORMAL) E.U./dL (NORMAL) 03/01/20 14:05 Ur Leukocyte Esterase LARGE (NEGATIVE) H 03/01/20 14:05 Urine RBC 6-10 /HPF (0-5) H 03/01/20 14:05 Urine WBC >25 /HPF (0-3) H 03/01/20 14:05 Urine WBC Clumps PRESENT 03/01/20 14:05 Ur Squamous Epith Cells RARE Squamous (<= Few) 03/01/20 14:05 Amorphous Sediment Rare /LPF 03/01/20 14:05 Urine Bacteria Moderate /HPF (None Seen) H 03/01/20 14:05 Ur Microscopic Review INDICATED 03/01/20 14:05 Urine Culture Comments INDICATED 03/01/20 14:05 - Procedures Procedures: Procedures CATARAC PHACOEMULS/ASPIR (12/29/13) ENDOSC POLYPECTOMY OF LG INTEST (01/18/15) ESOPHAGOGASTRODUODENOSCOPY [EGD] W/CLOSED BIOPSY (03/07/15) INSERT LENS AT CATAR EXT (12/29/13) LID RECONSTRUCTION NOS (11/11/12) ABX Reporting Has patient been on IV antibiotics over the past 48 hours?: Yes Current Medications - Current Medications Current Medications: Active Medications Acetaminophen (Tylenol) 650 mg PO Q4HR PRN PRN Reason: Pain 1 to 4 Last Admin: 03/02/20 11:39 Dose: 650 mg Documented by: Hydrocodone Bitart/Acetaminophen ([place] 5/325) 1 tab PO Q4HR PRN PRN Reason: PAIN Last Admin: 03/02/20 11:26 Dose: 1 tab Documented by: Albuterol () 2.5 mg INH RTQ4H PRN PRN Reason: Wheezing Albuterol/Ipratropium (Duoneb) 3 ml INH QID PRN PRN Reason: Wheezing Aspirin (St Aspirin) 81 mg PO DAILY [facility] Last Admin: 03/02/20 08:17 Dose: 81 mg Documented by: Budesonide (Pulmicort) 0.5 mg INH RTBID [facility] Last Admin: 03/02/20 08:11 Dose: 0.5 mg Documented by: Finasteride (Proscar) 5 mg PO DAILY [facility] Last Admin: 03/02/20 08:17 Dose: 5 mg Documented by: Formoterol Fumarate (Perforomist) 20 mcg INH RTBID [facility] Last Admin: 03/02/20 08:10 Dose: 20 mcg Documented by: Heparin Sodium (Porcine) () 5,000 unit SUBQ BID [facility] Last Admin: 03/02/20 11:17 Dose: 5,000 unit Documented by: Hydromorphone HCl (Dilaudid Inj Carp) 1 mg IVP Q4HR PRN PRN Reason: PAIN Last Admin: 03/02/20 08:16 Dose: 1 mg Documented by: Ceftriaxone Sodium 2 gm/ (Sodium Chloride) 100 mls @ 200 mls/hr IV DAILY [facility] Last Infusion: 03/02/20 13:10 Dose: Infused Documented by: Sodium Chloride (Normal Saline 0.9%) 1,000 mls @ 83.3 mls/hr IV .Q12H1M [facility] Stop: 03/03/20 03:01 Insulin Aspart (Novolog) 1 - 5 unit SUBQ 0800,1200,1700,2100 [facility]; Protocol Last Admin: 03/02/20 11:44 Dose: Not Given Documented by: Levothyroxine Sodium (Synthroid) 100 mcg PO QDAC [facility] Levothyroxine Sodium (Synthroid) 75 mcg PO QDAC [facility] Metoprolol Tartrate (Lopressor) 25 mg PO BID [facility] Ondansetron HCl (Zofran Inj) 4 mg IVP Q6HR PRN PRN Reason: Nausea / Vomiting Last Admin: 03/02/20 08:31 Dose: 4 mg Documented by: Pantoprazole Sodium (Protonix) 40 mg PO QDAC [facility] Last Admin: 03/02/20 06:00 Dose: 40 mg Documented by: Pregabalin (Lyrica) 75 mg PO BID [facility] Last Admin: 03/02/20 08:16 Dose: 75 mg Documented by: Saccharomyces Boulardii (Florastor) 250 mg PO BIDWM [facility] Last Admin: 03/02/20 08:16 Dose: 250 mg Documented by: Sodium Chloride (Normal Saline Flush 0.9%) 10 ml IVP PRN PRN PRN Reason: NEEDED PER PROVIDER ORDERS Sodium Chloride (Normal Saline Flush 0.9%) 10 ml IVP 0100,0900,1700 [facility] Last Admin: 03/02/20 11:44 Dose: 10 ml Documented by: Tamsulosin HCl (Flomax) 0.4 mg PO DAILY [facility] Last Admin: 03/02/20 11:38 Dose: 0.4 mg Documented by: Aspirin [Aspirin EC] 81 mg PO QDAC 11/11/12 Ipratropium/Albuterol [Combivent Respimat] 2 puffs INH QID PRN MDD 6 PUFFS Lisinopril [Prinivil] 30 mg PO QAM 11/11/12 Pregabalin [Lyrica] 75 mg PO BID 11/11/12 Rosuvastatin Calcium [Crestor] 10 mg PO HS 11/11/12 Tiotropium [place] [Spiriva] 1 puffs INH DAILY 11/11/12 metFORMIN [Glucophage] 1,000 mg PO BID 11/11/12 Finasteride [Proscar] 5 mg PO DAILY 03/01/20 Fluticasone/Salmeterol [Advair 250-50 Diskus] 2 puffs INH DAILY 03/01/20 Levothyroxine Sodium [Synthroid] 200 mcg PO DAILY 03/01/20 Tamsulosin [Flomax] 0.4 mg PO DAILY 03/01/20
--- NOTE | 2020-03-02 15:28 | XRAY Report ---
PROCEDURE: Chest 1 View X-Ray INDICATIONS: Shortness of breath TECHNIQUE: One view of the chest was acquired. COMPARISON: FINDINGS: Surgical changes and devices: None. Lungs and pleura: No pleural effusions or pneumothorax. Lungs are clear. Mediastinum: Mediastinal contours appear normal. Heart size is normal. Bones and chest wall: No suspicious bony lesions. Overlying soft tissues appear unremarkable. IMPRESSION: No acute cardiopulmonary process demonstrated radiographically. Reviewed by: Bhavesh Alegre MD on 03/02/2020 3:26 PM PDT Approved by: Bhavesh Alegre MD on 03/02/2020 3:26 PM PDT Station ID: [id number]
[2020-03-02] MEDS ORDERED: CYCLOBENZAPRINE 10 MG TABLET PO PRN (20:52)
[2020-03-02] MEDS ORDERED: MEROPENEM 1 GM in SODIUM CHLORIDE 0.9% MINIBAG 100 ML IV SCH (21:24)
[2020-03-02 21:35] LABS: BASOPHILS % (AUTO) 0.5 %; EOSINOPHILS % (AUTO) 0.6 %; LYMPHOCYTES % (AUTO) 16.8 %; MEAN CORPUSCULAR HEMOGLOBIN 30.2 pg (27.0-31.0); MEAN CORPUSCULAR HGB CONC 31.9 g/dL (32.0-36.0); MEAN CORPUSCULAR VOLUME 94.7 fL (80.0-94.0); MEAN PLATELET VOLUME 8.8 fL (7.4-11.4); MONOCYTES % (AUTO) 11.3 %; NEUTROPHILS % (AUTO) 70.1 %; PLT - PLATELET COUNT 271 10^3/uL (130-450); RED CELL DISTRIBUTION WIDTH 12.8 % (12.0-15.0); WHITE BLOOD COUNT 14.6 x10^3/uL (4.8-10.8)
[2020-03-02 21:52] LABS: ABNORMAL LYMPHS % (MANUAL) 0 %
[2020-03-02 21:55] LABS: ALBUMIN 3.9 g/dL (3.2-5.5); BILIRUBIN,DIRECT 0.2 mg/dL (0.1-0.5); BILIRUBIN,TOTAL 0.7 mg/dL (0.2-1.0); CALCIUM 9.1 mg/dL (8.5-10.3); CREATININE 1.2 mg/dL (0.6-1.2); TOTAL PROTEIN 7.7 g/dL (6.7-8.2)
[2020-03-02] MEDS: METOPROLOL TARTRATE 25 MG TABLET PO SCH (21:55)
[2020-03-02 21:56] LABS: BAND NEUTROPHILS % (MANUAL) 1 %; DIFFERENTIAL COMMENT MANUAL DIFFERENTIAL; EOSINOPHILS # (MANUAL) 0.1 10^3/uL (0-0.7); LYMPHOCYTES # (MANUAL) 2.9 10^3/uL (1.5-3.5); LYMPHOCYTES % (MANUAL) 20 %; MONOCYTES # (MANUAL) 1.3 10^3/uL (0.0-1.0); MYELOCYTES % (MANUAL) 1 %; PLATELET ESTIMATE, MANUAL NORMAL (130-450,000) (NORMAL); PLATELET MORPHOLOGY NORMAL APPEARANCE (NORMAL); RBC MORPHOLOGY (MULTIPLE) NORMAL APPEARANCE (NORMAL)
[2020-03-02] MEDS ORDERED: LACTATED RINGERS 1,000 ML IV ONE (21:59)
[2020-03-03] MEDS: SODIUM CHLORIDE FLUSH 0.9% 10 ML SYRINGE IVP SCH ×3 (00:58→17:10)
[2020-03-03 01:02] LABS: VBG BASE EXCESS -2.7 mmol/L (-2 - +2); VBG PCO2 31.4 mmHg (41-51); VBG PH 7.433 (7.31-7.41); VBG PO2 86.6 mmHg (25-47); VBG TOTAL CO2 21.5 mmol/L (24-29)
[2020-03-03] MEDS: HYDROcod/ACETAM 5/325 MG TABLET PO PRN ×3 (03:05→21:21)
[2020-03-03 05:00] LABS: BASOPHILS % (AUTO) 0.4 %; EOSINOPHILS % (AUTO) 0.1 %; HGB - HEMOGLOBIN 12.9 g/dL (14.0-18.0); LYMPHOCYTES # (AUTO) 0.7 10^3/uL (1.5-3.5); LYMPHOCYTES % (AUTO) 7.6 %; MEAN CORPUSCULAR HGB CONC 32.6 g/dL (32.0-36.0); MEAN CORPUSCULAR VOLUME 92.1 fL (80.0-94.0); MEAN PLATELET VOLUME 8.8 fL (7.4-11.4); MONOCYTES # (AUTO) 0.9 10^3/uL (0.0-1.0); MONOCYTES % (AUTO) 10.7 %; NEUTROPHILS # (AUTO) 6.9 10^3/uL (1.5-6.6); NEUTROPHILS % (AUTO) 80.5 %; PLT - PLATELET COUNT 203 10^3/uL (130-450); RED CELL DISTRIBUTION WIDTH 12.8 % (12.0-15.0); WHITE BLOOD COUNT 8.6 x10^3/uL (4.8-10.8)
[2020-03-03 05:11] LABS: CALCIUM 8.1 mg/dL (8.5-10.3); MAGNESIUM 1.5 mg/dL (1.7-2.8)
[2020-03-03 05:17] LABS: CHOL/HDL RATIO 3.9 (<5.0); CHOLESTEROL 81 mg/dL; HDL CHOLESTEROL 21 mg/dL; LDL CHOLESTEROL,CALCULATED 41 mg/dL; VLDL CHOLESTEROL 19 mg/dL
[2020-03-03] MEDS: LEVOTHYROXINE 75 MCG TABLET PO SCH (06:16)
[2020-03-03] MEDS: PANTOPRAZOLE 40 MG TABLET PO SCH (06:16)
[2020-03-03] MEDS: LEVOTHYROXINE 100 MCG TABLET PO SCH (06:16)
[2020-03-03] MEDS: BUDESONIDE 0.5 MG/2 ML NEB INH SCH ×2 (07:10→19:48)
[2020-03-03] MEDS: FORMOTEROL FUMARATE NEB 20 MCG/2 ML INH SCH ×2 (07:10→19:48)
[2020-03-03] MEDS ORDERED: SODIUM POLYSTYRENE SULFONATE 15 GM/60 ML BOTTLE PO ONE (08:00)
[2020-03-03] MEDS ORDERED: MAGNESIUM SULFATE 1 GM in SODIUM CHLORIDE 0.9% 50 ML IV ONE (08:30)
[2020-03-03] MEDS: MAGNESIUM OXIDE 400 MG TABLET PO SCH (08:31)
[2020-03-03] MEDS: SACCHAROMYCES BOULARDII 250 MG CAPSULE PO SCH ×2 (08:31→17:09)
[2020-03-03] MEDS: MEROPENEM 1 GM in SODIUM CHLORIDE 0.9% MINIBAG 100 ML IV SCH ×2 (08:31→17:09)
[2020-03-03] MEDS: INSULIN ASPART 300 UNIT/3 ML PEN SUBQ SCH ×4 (08:32→21:22)
[2020-03-03] MEDS: FINASTERIDE 5 MG TABLET PO SCH (08:39)
[2020-03-03] MEDS: PREGABALIN 25 MG CAPSULE PO SCH ×2 (08:39→21:20)
[2020-03-03] MEDS: ASPIRIN CHEW 81 MG TABLET PO SCH (08:39)
[2020-03-03] MEDS: METOPROLOL TARTRATE 25 MG TABLET PO SCH ×2 (08:39→21:21)
[2020-03-03] MEDS: HEPARIN 5,000 UNIT/ML VIAL SUBQ SCH ×2 (08:40→21:24)
[2020-03-03] MEDS: TAMSULOSIN 0.4 MG CAPSULE PO SCH (09:47)
--- NOTE | 2020-03-03 12:57 | PROVIDER PROGRESS NOTE ---
Subjective - Prog Note Date Prog Note Date: 03/03/20 - Subjective Pt reports feeling: Improved Subjective: Patient reported he feels much better today, he has no fever no chill. Patient had spotted fever on yesterday and chill on last night. I will call radiologist Ena Astorga to reveiw the CAT scan of abdomen/ pelvis again, she believe diagnosis of prostatitis is mainly dependent of clinic presentation. In Cat scan pt has no prostate abscess. Update the recommended we check CRP, ESR, PSA, we also order bladder US after discussed with US tech to help the diagnosis of Prostatitis. pt did present clinic typical symptoms of Prostatis: spotted fever, chill, cloudy urine with infection, BPH in the past since from last year February although pt could not get Cystoscopy. pt is likely to have Prostatitis. Current Medications - Current Medications Current Medications: Active Medications Acetaminophen (Tylenol) 650 mg PO Q4HR PRN PRN Reason: Pain 1 to 4 Last Admin: 03/02/20 11:39 Dose: 650 mg Documented by: Hydrocodone Bitart/Acetaminophen ([place] 5/325) 1 tab PO Q4HR PRN PRN Reason: PAIN Last Admin: 03/03/20 07:03 Dose: 1 tab Documented by: Albuterol () 2.5 mg INH RTQ4H PRN PRN Reason: Wheezing Albuterol/Ipratropium (Duoneb) 3 ml INH QID PRN PRN Reason: Wheezing Aspirin (St Aspirin) 81 mg PO DAILY [facility] Last Admin: 03/03/20 08:39 Dose: 81 mg Documented by: Atorvastatin Calcium (Lipitor) 20 mg PO QPM [facility] Budesonide (Pulmicort) 0.5 mg INH RTBID [facility] Last Admin: 03/03/20 07:10 Dose: 0.5 mg Documented by: Finasteride (Proscar) 5 mg PO DAILY [facility] Last Admin: 03/03/20 08:39 Dose: 5 mg Documented by: Formoterol Fumarate (Perforomist) 20 mcg INH RTBID [facility] Last Admin: 03/03/20 07:10 Dose: 20 mcg Documented by: Heparin Sodium (Porcine) () 5,000 unit SUBQ BID [facility] Last Admin: 03/03/20 08:40 Dose: 5,000 unit Documented by: Hydromorphone HCl (Dilaudid Inj Carp) 1 mg IVP Q4HR PRN PRN Reason: PAIN Last Admin: 03/02/20 08:16 Dose: 1 mg Documented by: Meropenem 1 gm/ Sodium (Chloride) 100 mls @ 200 mls/hr IV Q8H [facility] Last Infusion: 03/03/20 09:01 Dose: Infused Documented by: Insulin Aspart (Novolog) 1 - 5 unit SUBQ 0800,1200,1700,2100 [facility]; Protocol Last Admin: 03/03/20 11:56 Dose: Not Given Documented by: Levothyroxine Sodium (Synthroid) 100 mcg PO QDAC [facility] Last Admin: 03/03/20 06:16 Dose: 100 mcg Documented by: Levothyroxine Sodium (Synthroid) 75 mcg PO QDAC [facility] Last Admin: 03/03/20 06:16 Dose: 75 mcg Documented by: Magnesium Oxide (Mag Ox) 400 mg PO DAILYWM [facility] Last Admin: 03/03/20 08:31 Dose: 400 mg Documented by: Metoprolol Tartrate (Lopressor) 25 mg PO BID [facility] Last Admin: 03/03/20 08:39 Dose: 25 mg Documented by: Ondansetron HCl (Zofran Inj) 4 mg IVP Q6HR PRN PRN Reason: Nausea / Vomiting Last Admin: 03/02/20 08:31 Dose: 4 mg Documented by: Pantoprazole Sodium (Protonix) 40 mg PO QDAC [facility] Last Admin: 03/03/20 06:16 Dose: 40 mg Documented by: Pregabalin (Lyrica) 75 mg PO BID [facility] Last Admin: 03/03/20 08:39 Dose: 75 mg Documented by: Saccharomyces Boulardii (Florastor) 250 mg PO BIDWM [facility] Last Admin: 03/03/20 08:31 Dose: 250 mg Documented by: Sodium Chloride (Normal Saline Flush 0.9%) 10 ml IVP PRN PRN PRN Reason: NEEDED PER PROVIDER ORDERS Sodium Chloride (Normal Saline Flush 0.9%) 10 ml IVP 0100,0900,1700 [facility] Last Admin: 03/03/20 09:47 Dose: Not Given Documented by: Tamsulosin HCl (Flomax) 0.4 mg PO DAILY [facility] Last Admin: 03/03/20 09:47 Dose: 0.4 mg Documented by: Aspirin [Aspirin EC] 81 mg PO QDAC 11/11/12 Ipratropium/Albuterol [Combivent Respimat] 2 puffs INH QID PRN MDD 6 PUFFS 11/11/12 Lisinopril [Prinivil] 30 mg PO QAM 11/11/12 Pregabalin [Lyrica] 75 mg PO BID 11/11/12 Rosuvastatin Calcium [Crestor] 10 mg PO HS 11/11/12 Tiotropium Browning [Spiriva] 1 puffs INH DAILY 11/11/12 metFORMIN [Glucophage] 1,000 mg PO BID 11/11/12 Finasteride [Proscar] 5 mg PO DAILY 03/01/20 Fluticasone/Salmeterol [Advair 250-50 Diskus] 2 puffs INH DAILY 03/01/20 Levothyroxine Sodium [Synthroid] 200 mcg PO DAILY 03/01/20 Tamsulosin [Flomax] 0.4 mg PO DAILY 03/01/20 Objective - Vital Signs/Intake & Output Vital Signs: Vital Signs x48h Temp Pulse Pulse Resp BP Pulse Ox 03/03/20 12:25 36.9 C 77 18 94/67 93 03/03/20 09:00 36.8 C 91 16 106/69 93 03/03/20 07:11 79 18 Intake & Output: Intake & Output 02/29/20 03/01/20 03/02/20 03/03/20 23:59 23:59 23:59 23:59 Intake Total 3461.25 4471.155 1969.345 Output Total 500 500 Balance 2961.25 3971.155 1969.345 - Objective General Appearance: positive: No acute distress, Alert. negative: Lethargic Eyes Bilateral: positive: Normal inspection, PERRL, No lid inflammation ENT: positive: ENT inspection nml, Pharynx nml, No signs of dehydration. negative: Purulent nasal drainage Neck: positive: Nml inspection, Thyroid nml, Trachea midline. negative: Thyromegaly, Stiff neck, Tracheal deviation Respiratory: positive: Chest non-tender, No respiratory distress. negative: Wheezes, Rales, Rhonchi Cardiovascular: positive: Regular rate & rhythm, No murmur. negative: Tachycardia, Bradycardia, Systolic murmur, Diastolic murmur Peripheral Pulses: 2+ Radial (R), 2+ Radial (L), 2+ Dorsalis pedis (R), 2+ Dorsalis pedis (L) Abdomen: positive: Non-tender, Nml bowel sounds, No distention. negative: Tenderness, Guarding, Rebound Back: positive: Nml inspection. negative: CVA tenderness (R), CVA tenderness (L) Skin: positive: Color nml, No rash, Warm, Dry. negative: Cyanosis, Diaphoresis, Pallor Extremities: positive: Non-tender, Nml appearance. negative: Calf tenderness, Santa's sign/cords Neurologic/Psychiatric: positive: Oriented x3, Sensation nml, Mood/affect nml. negative: Weakness, Sensory loss, Facial droop, Slurred/abnml speech, Depressed mood/affect - Lab Results Fish Bones: 03/03/20 04:45 03/03/20 04:45 Other Labs: Lab Results x24hrs 03/03/20 03/03/20 03/03/20 Range/Units 12:28 09:55 09:55 WBC (4.8-10.8) x10^3/uL RBC (4.70-6.10) 10^6/uL Hgb (14.0-18.0) g/dL Hct (42.0-52.0) % MCV (80.0-94.0) fL MCH (27.0-31.0) pg MCHC (32.0-36.0) g/dL RDW (12.0-15.0) % Plt Count (130-450) 10^3/uL MPV (7.4-11.4) fL Neut # (Auto) Lymph # (Auto) Beaver # (Auto) Eos # (Auto) Baso # (Auto) Absolute Nucleated RBC Total Counted Band Neuts % (Manual) (0 - 10) % Abnorm Lymph % (Manual) % Myelocytes % ( - 0) % Nucleated RBC % Neutrophils # (Manual) (1.5-6.6) 10^3/uL Lymphocytes # (Manual) (1.5-3.5) 10^3/uL Monocytes # (Manual) (0.0-1.0) 10^3/uL Eosinophils # (Manual) (0-0.7) 10^3/uL Basophils # (Manual) (0-0.1) 10^3/uL Differential Comment WBC Morphology (NORMAL) Platelet Estimate (NORMAL) Platelet Morphology (NORMAL) RBC Morph Micro Appear (NORMAL) ESR 18 (0-20) mm/Hr VBG pH (7.31-7.41) VBG pCO2 (41-51) mmHg VBG pO2 (25-47) mmHg VBG HCO3 (23-28) mmol/L VBG Total CO2 (24-29) mmol/L VBG O2 Saturation (60-80) % VBG Base Excess (-2 - +2) mmol/L Sodium (135-145) mmol/L Potassium (3.5-5.0) mmol/L Chloride (101-111) mmol/L Carbon Dioxide (21-32) mmol/L Anion Gap (6-13) BUN (6-20) mg/dL Creatinine (0.6-1.2) mg/dL Estimated GFR (MDRD) (>89) Glucose (70-100) mg/dL Lactic Acid (0.5-2.2) mmol/L Calcium (8.5-10.3) mg/dL Magnesium (1.7-2.8) mg/dL Total Bilirubin (0.2-1.0) mg/dL Direct Bilirubin (0.1-0.5) mg/dL AST (10-42) IU/L ALT (10-60) IU/L Alkaline Phosphatase (42-121) IU/L Troponin I High Sens 60.3 H* (2.3-19.7) ng/L C-Reactive Protein 17.4 H (0-1.0) mg/dL B-Natriuretic Peptide (5-100) pg/mL Total Protein (6.7-8.2) g/dL Albumin (3.2-5.5) g/dL Globulin (2.1-4.2) g/dL Triglycerides ( - 149) mg/dL Cholesterol ( - 199) mg/dL LDL Cholesterol, Calc ( - 129) mg/dL VLDL Cholesterol mg/dL HDL Cholesterol (60 - ) mg/dL LDL/HDL Ratio (<3.6) Cholesterol/HDL Ratio (<5.0) 03/03/20 03/03/20 03/03/20 Range/Units 04:45 04:45 04:45 WBC (4.8-10.8) x10^3/uL RBC (4.70-6.10) 10^6/uL Hgb (14.0-18.0) g/dL Hct (42.0-52.0) % MCV (80.0-94.0) fL MCH (27.0-31.0) pg MCHC (32.0-36.0) g/dL RDW (12.0-15.0) % Plt Count (130-450) 10^3/uL MPV (7.4-11.4) fL Neut # (Auto) Lymph # (Auto) Beaver # (Auto) Eos # (Auto) Baso # (Auto) Absolute Nucleated RBC Total Counted Band Neuts % (Manual) (0 - 10) % Abnorm Lymph % (Manual) % Myelocytes % ( - 0) % Nucleated RBC % Neutrophils # (Manual) (1.5-6.6) 10^3/uL Lymphocytes # (Manual) (1.5-3.5) 10^3/uL Monocytes # (Manual) (0.0-1.0) 10^3/uL Eosinophils # (Manual) (0-0.7) 10^3/uL Basophils # (Manual) (0-0.1) 10^3/uL Differential Comment WBC Morphology (NORMAL) Platelet Estimate (NORMAL) Platelet Morphology (NORMAL) RBC Morph Micro Appear (NORMAL) ESR (0-20) mm/Hr VBG pH (7.31-7.41) VBG pCO2 (41-51) mmHg VBG pO2 (25-47) mmHg VBG HCO3 (23-28) mmol/L VBG Total CO2 (24-29) mmol/L VBG O2 Saturation (60-80) % VBG Base Excess (-2 - +2) mmol/L Sodium 135 (135-145) mmol/L Potassium 5.2 H (3.5-5.0) mmol/L Chloride 103 (101-111) mmol/L Carbon Dioxide 25 (21-32) mmol/L Anion Gap 7.0 (6-13) BUN 27 H (6-20) mg/dL Creatinine 1.0 (0.6-1.2) mg/dL Estimated GFR (MDRD) 73 L (>89) Glucose 126 H (70-100) mg/dL Lactic Acid (0.5-2.2) mmol/L Calcium 8.1 L (8.5-10.3) mg/dL Magnesium 1.5 L (1.7-2.8) mg/dL Total Bilirubin (0.2-1.0) mg/dL Direct Bilirubin (0.1-0.5) mg/dL AST (10-42) IU/L ALT (10-60) IU/L Alkaline Phosphatase (42-121) IU/L Troponin I High Sens 109.9 H* (2.3-19.7) ng/L C-Reactive Protein (0-1.0) mg/dL B-Natriuretic Peptide (5-100) pg/mL Total Protein (6.7-8.2) g/dL Albumin (3.2-5.5) g/dL Globulin (2.1-4.2) g/dL Triglycerides 94 ( - 149) mg/dL Cholesterol 81 ( - 199) mg/dL LDL Cholesterol, Calc 41 ( - 129) mg/dL VLDL Cholesterol 19 mg/dL HDL Cholesterol 21 L (60 - ) mg/dL LDL/HDL Ratio 2.0 (<3.6) Cholesterol/HDL Ratio 3.9 (<5.0) 03/03/20 03/03/20 03/03/20 Range/Units 04:45 00:50 00:50 WBC 8.6 (4.8-10.8) x10^3/uL RBC 4.30 L (4.70-6.10) 10^6/uL Hgb 12.9 L (14.0-18.0) g/dL Hct 39.6 L (42.0-52.0) % MCV 92.1 (80.0-94.0) fL MCH 30.0 (27.0-31.0) pg MCHC 32.6 (32.0-36.0) g/dL RDW 12.8 (12.0-15.0) % Plt Count 203 (130-450) 10^3/uL MPV 8.8 (7.4-11.4) fL Neut # (Auto) 6.9 H Lymph # (Auto) 0.7 L Beaver # (Auto) 0.9 Eos # (Auto) 0.0 Baso # (Auto) 0.0 Absolute Nucleated RBC 0.00 Total Counted Band Neuts % (Manual) (0 - 10) % Abnorm Lymph % (Manual) % Myelocytes % ( - 0) % Nucleated RBC % 0.0 Neutrophils # (Manual) (1.5-6.6) 10^3/uL Lymphocytes # (Manual) (1.5-3.5) 10^3/uL Monocytes # (Manual) (0.0-1.0) 10^3/uL Eosinophils # (Manual) (0-0.7) 10^3/uL Basophils # (Manual) (0-0.1) 10^3/uL Differential Comment WBC Morphology (NORMAL) Platelet Estimate (NORMAL) Platelet Morphology (NORMAL) RBC Morph Micro Appear (NORMAL) ESR (0-20) mm/Hr VBG pH (7.31-7.41) VBG pCO2 (41-51) mmHg VBG pO2 (25-47) mmHg VBG HCO3 (23-28) mmol/L VBG Total CO2 (24-29) mmol/L VBG O2 Saturation (60-80) % VBG Base Excess (-2 - +2) mmol/L Sodium (135-145) mmol/L Potassium (3.5-5.0) mmol/L Chloride (101-111) mmol/L Carbon Dioxide (21-32) mmol/L Anion Gap (6-13) BUN (6-20) mg/dL Creatinine (0.6-1.2) mg/dL Estimated GFR (MDRD) (>89) Glucose (70-100) mg/dL Lactic Acid 0.9 (0.5-2.2) mmol/L Calcium (8.5-10.3) mg/dL Magnesium (1.7-2.8) mg/dL Total Bilirubin (0.2-1.0) mg/dL Direct Bilirubin (0.1-0.5) mg/dL AST (10-42) IU/L ALT (10-60) IU/L Alkaline Phosphatase (42-121) IU/L Troponin I High Sens 109.9 H* (2.3-19.7) ng/L C-Reactive Protein (0-1.0) mg/dL B-Natriuretic Peptide (5-100) pg/mL Total Protein (6.7-8.2) g/dL Albumin (3.2-5.5) g/dL Globulin (2.1-4.2) g/dL Triglycerides ( - 149) mg/dL Cholesterol ( - 199) mg/dL LDL Cholesterol, Calc ( - 129) mg/dL VLDL Cholesterol mg/dL HDL Cholesterol (60 - ) mg/dL LDL/HDL Ratio (<3.6) Cholesterol/HDL Ratio (<5.0) 03/03/20 03/02/20 03/02/20 Range/Units 00:50 21:30 21:30 WBC (4.8-10.8) x10^3/uL RBC (4.70-6.10) 10^6/uL Hgb (14.0-18.0) g/dL Hct (42.0-52.0) % MCV (80.0-94.0) fL MCH (27.0-31.0) pg MCHC (32.0-36.0) g/dL RDW (12.0-15.0) % Plt Count (130-450) 10^3/uL MPV (7.4-11.4) fL Neut # (Auto) Lymph # (Auto) Beaver # (Auto) Eos # (Auto) Baso # (Auto) Absolute Nucleated RBC Total Counted Band Neuts % (Manual) (0 - 10) % Abnorm Lymph % (Manual) % Myelocytes % ( - 0) % Nucleated RBC % Neutrophils # (Manual) (1.5-6.6) 10^3/uL Lymphocytes # (Manual) (1.5-3.5) 10^3/uL Monocytes # (Manual) (0.0-1.0) 10^3/uL Eosinophils # (Manual) (0-0.7) 10^3/uL Basophils # (Manual) (0-0.1) 10^3/uL Differential Comment WBC Morphology (NORMAL) Platelet Estimate (NORMAL) Platelet Morphology (NORMAL) RBC Morph Micro Appear (NORMAL) ESR (0-20) mm/Hr VBG pH 7.433 H (7.31-7.41) VBG pCO2 31.4 L (41-51) mmHg VBG pO2 86.6 H (25-47) mmHg VBG HCO3 20.5 L (23-28) mmol/L VBG Total CO2 21.5 L (24-29) mmol/L VBG O2 Saturation 96.5 H (60-80) % VBG Base Excess -2.7 L (-2 - +2) mmol/L Sodium 138 (135-145) mmol/L Potassium 4.8 (3.5-5.0) mmol/L Chloride 99 L (101-111) mmol/L Carbon Dioxide 23 (21-32) mmol/L Anion Gap 16.0 H (6-13) BUN 26 H (6-20) mg/dL Creatinine 1.2 (0.6-1.2) mg/dL Estimated GFR (MDRD) 59 L (>89) Glucose 126 H (70-100) mg/dL Lactic Acid (0.5-2.2) mmol/L Calcium 9.1 (8.5-10.3) mg/dL Magnesium (1.7-2.8) mg/dL Total Bilirubin 0.7 (0.2-1.0) mg/dL Direct Bilirubin 0.2 (0.1-0.5) mg/dL AST 44 H (10-42) IU/L ALT 55 (10-60) IU/L Alkaline Phosphatase 98 (42-121) IU/L Troponin I High Sens (2.3-19.7) ng/L C-Reactive Protein (0-1.0) mg/dL B-Natriuretic Peptide 188 H (5-100) pg/mL Total Protein 7.7 (6.7-8.2) g/dL Albumin 3.9 (3.2-5.5) g/dL Globulin 3.8 (2.1-4.2) g/dL Triglycerides ( - 149) mg/dL Cholesterol ( - 199) mg/dL LDL Cholesterol, Calc ( - 129) mg/dL VLDL Cholesterol mg/dL HDL Cholesterol (60 - ) mg/dL LDL/HDL Ratio (<3.6) Cholesterol/HDL Ratio (<5.0) 03/02/20 03/02/20 03/02/20 Range/Units 21:30 21:30 21:30 WBC 14.6 H (4.8-10.8) x10^3/uL RBC 5.30 (4.70-6.10) 10^6/uL Hgb 16.0 (14.0-18.0) g/dL Hct 50.2 (42.0-52.0) % MCV 94.7 H (80.0-94.0) fL MCH 30.2 (27.0-31.0) pg MCHC 31.9 L (32.0-36.0) g/dL RDW 12.8 (12.0-15.0) % Plt Count 271 (130-450) 10^3/uL MPV 8.8 (7.4-11.4) fL Neut # (Auto) Not Reportable Lymph # (Auto) Not Reportable Beaver # (Auto) Not Reportable Eos # (Auto) Not Reportable Baso # (Auto) Not Reportable Absolute Nucleated RBC Not Reportable Total Counted 100 Band Neuts % (Manual) 1 (0 - 10) % Abnorm Lymph % (Manual) 0 % Myelocytes % 1 H ( - 0) % Nucleated RBC % Not Reportable Neutrophils # (Manual) 10.1 H (1.5-6.6) 10^3/uL Lymphocytes # (Manual) 2.9 (1.5-3.5) 10^3/uL Monocytes # (Manual) 1.3 H (0.0-1.0) 10^3/uL Eosinophils # (Manual) 0.1 (0-0.7) 10^3/uL Basophils # (Manual) 0.0 (0-0.1) 10^3/uL Differential Comment MANUAL DIFFERENTIAL WBC Morphology NORMAL APPEARANCE (NORMAL) Platelet Estimate NORMAL (130-450,000) (NORMAL) Platelet Morphology NORMAL APPEARANCE (NORMAL) RBC Morph Micro Appear NORMAL APPEARANCE (NORMAL) ESR (0-20) mm/Hr VBG pH (7.31-7.41) VBG pCO2 (41-51) mmHg VBG pO2 (25-47) mmHg VBG HCO3 (23-28) mmol/L VBG Total CO2 (24-29) mmol/L VBG O2 Saturation (60-80) % VBG Base Excess (-2 - +2) mmol/L Sodium (135-145) mmol/L Potassium (3.5-5.0) mmol/L Chloride (101-111) mmol/L Carbon Dioxide (21-32) mmol/L Anion Gap (6-13) BUN (6-20) mg/dL Creatinine (0.6-1.2) mg/dL Estimated GFR (MDRD) (>89) Glucose (70-100) mg/dL Lactic Acid 3.4 H* (0.5-2.2) mmol/L Calcium (8.5-10.3) mg/dL Magnesium (1.7-2.8) mg/dL Total Bilirubin (0.2-1.0) mg/dL Direct Bilirubin (0.1-0.5) mg/dL AST (10-42) IU/L ALT (10-60) IU/L Alkaline Phosphatase (42-121) IU/L Troponin I High Sens 19.9 H* (2.3-19.7) ng/L C-Reactive Protein (0-1.0) mg/dL B-Natriuretic Peptide (5-100) pg/mL Total Protein (6.7-8.2) g/dL Albumin (3.2-5.5) g/dL Globulin (2.1-4.2) g/dL Triglycerides ( - 149) mg/dL Cholesterol ( - 199) mg/dL LDL Cholesterol, Calc ( - 129) mg/dL VLDL Cholesterol mg/dL HDL Cholesterol (60 - ) mg/dL LDL/HDL Ratio (<3.6) Cholesterol/HDL Ratio (<5.0) ABX Reporting Has patient been on IV antibiotics over the past 48 hours?: Yes Assessment/Plan - Problem List (1) Fever Impression: 03/03 Patient had a spotted fever 39.3 on yesterday, patient also had chill on last night with short term of sinus tachycardia on last night. Today he feel much better, he has no more fever or chilly on today. Patient is likely to have prostatitis to cause those symptoms Based on patient medical history and clinically presentation. We will order ESR, CRP, PSA, and ultrasound of prostate. I called the radiologist Dr. Ena Astorga, she confirm pt has no prostate abscess but not sure prostatitis, it is clinic dependent diagnosis. Patient is likely to have prostatitis. Blood culture is negative for bacteremia. We will continue meropenem. Patient might need PICC line for another 6-week intravenous antibiotics. Patient Had fever 39.3 degrees on today, WBC still slightly elevated, patient has a normal blood pressure. Blood culture is still pending but the urinalysis indicated negative rods in the culture, sensitivities pending. Order chest x-ray is pending. Patient might have bacteremia. At this time we continue Rocephin antibiotics, Continue gently intravenous IV fluids. Give patient Tylenol as needed. If patient continue to have fever on tomorrow, then we will do the blood culture again. (2)elevated troponin Patient Had a transient elevated troponin, continue troponin test found troponin trend down. repeat EKG show sinus rhythm without ST variation as his basel ine.Patient denies any chest pain. Now patient is hemodynamic stable. Patient might have demand ischemia. We will continue patient home aspirin, heparin for DVT prophylaxis, beta-alexa, lower dosage of statin. Continue telemetry. (3) diastolic heart failure, chronic 821,new echo show patient has diastolic heart failure. Patient's O2 sat is stable, no active respiratory distress, Patient has no acute bilateral low extremity edema. We will precaution of intravenous IV fluids, Continue aspirin and beta-alexa and statin for patient, Continue telemetry and vital signs monitor patient 03/02, Patient has nearly syncope, he denied loss of conscious. EKG show sinus rhythm. Troponin negative. Echo review preserved EF, but with moderate pulmonary hypertension and moderate Abnormal right heart pressure. It is likely caused by significantly Dehydration and infection, possible bacteremia. Patient had near any syncope in his primary care office and his blood pressure dropped to 70s. Patient denies loss conscious or any injury. Patient creatinine is 1.7, patient creatinine usually is 0.7. Clinically patient present dehydration. We will check echo, we will continue monitor technician patient, It is likely caused by dehydration and poor perfusion. We will hold patient home blood pressure medicine. Patient was given intravenous fluid of two bags in the ER, we will continue give intravenous IV fluids, and agriculture laboratory technician and vital signs monitor. fall precaution. 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 X-ray and CAT scan did not show fracture. Continue pain management, Continue physical therapist occupational therapist (5) UTI (urinary tract infection) Conclusion/Plan: 03/02Urine culture show negative rods, sensitivity is pending, We will continue Rocephin. Patient is likely failed for oral antibiotics as out-pt. Urinalysis still indicated patient has a urinary tract infection. ER started with Rocephin for patient, we will continue Rocephin treated for urinary tract infection, UA c ulture is pending, we will follow-up (6) Transient hypotension Conclusion/Plan: 820,Resolved Patient had transient hypotension in the PCP office , then patient had nearly syncope in his primary care office. Troponin is negative for acute GA. it Is likely caused by patient dehydration. We will hydration to the patient with intravenous IV fluids. Hold home blood pressure medicine (7) TUNDE (acute kidney injury) Conclusion/Plan: 820,Significantly improved, creatinine 1.2 from previous 1.7 Patient creatinine is 1.7, his base line creatinine is 0.7, patient clinically show dehydration, we will give patient intravenous IV fluids, hold nephrologic toxic agents, Continue agriculture laboratory technician (6) Hyperkalemia Conclusion/Plan: 821,Patient potassium is 5.2, give patient 1 dose of Kayexalate, Continue agriculture laboratory technician 820, patient potassium still 5.6 even after Kayexalate, order Order 5 units insulin, Continue agriculture laboratory technician Patient potassium 6.0, likely caused by patient TUNDE and dehydration. We will give patient 1 time kayexalate, Continue hydration with intravenous IV fluids, continue agriculture laboratory technician. (7) BPH (benign prostatic hyperplasia) Conclusion/Plan: Patient has a history of BPH, we will resume home home medication Flomax and proscar (8) HTN (hypertension) Conclusion/Plan: Patient had transient hypotension now, we will hold the home medication lisinopril, continue intravenous IV fluids, continue vital signs monitor (9) Hypothyroidism Conclusion/Plan: 820, TSH is low, reduced Synthroid to 175 mcg daily,Follow-up PCP for further management We will check TSH, resume home Synthroid (10) COPD (chronic obstructive pulmonary disease) Conclusion/Plan: 820, stable, continue home medication and breathing treatment as needed Patient has a history of COPD with asthma, we will resume home albuterol and Duoneb breathing treatment as needed (11) Weakness Conclusion/Plan: Patient present weakness and near syncope in his primary care office, we will consult with physical therapist and occupational therapist. (3) UTI (urinary tract infection) Qualifiers: Urinary tract infection type: acute pyelonephritis Qualified Code(s): N10 - Acute pyelonephritis
[2020-03-03 13:51] LABS: PSA FREE 0.058 ng/mL (0.16-2.81)
[2020-03-03 13:52] LABS: PSA TOTAL 0.58 ng/mL (0.000-2.000)
[2020-03-03] MEDS: LACTATED RINGERS 1,000 ML IV SCH (18:23)
--- NOTE | 2020-03-03 18:47 | Ultrasound Report ---
PROCEDURE: Bladder INDICATIONS: prostatitis? TECHNIQUE: Ultrasound of the pelvis is performed. COMPARISON: None. FINDINGS: Prostate is hypoechoic and a trace an echogenic capsule with no evidence of increased vascularity. Pr ostate measures 50 mm x 49 mm x 52 mm. Layering debris within the urinary bladder is present. IMPRESSION: 1. Prostate enlargement. Recommend correlation with PSA values. 2. Debris within the bladder, which may indicate cystitis. Correlation with urinalysis recommended. Reviewed by: Zain Sauceda MD on 03/03/2020 6:46 PM PDT Approved by: Zain Sauceda MD on 03/03/2020 6:46 PM PDT Station ID: [id number]
[2020-03-03] MEDS: ATORVASTATIN 40 MG TABLET PO SCH (21:20)
[2020-03-04] MEDS: MEROPENEM 1 GM in SODIUM CHLORIDE 0.9% MINIBAG 100 ML IV SCH ×2 (00:06→08:24)
[2020-03-04] MEDS: SODIUM CHLORIDE FLUSH 0.9% 10 ML SYRINGE IVP SCH ×3 (00:07→17:08)
[2020-03-04] MEDS: HYDROcod/ACETAM 5/325 MG TABLET PO PRN ×4 (02:25→15:11)
[2020-03-04 06:01] LABS: BASOPHILS % (AUTO) 0.3 %; EOSINOPHILS # (AUTO) 0.2 10^3/uL (0.0-0.7); EOSINOPHILS % (AUTO) 2.1 %; HGB - HEMOGLOBIN 13.3 g/dL (14.0-18.0); LYMPHOCYTES # (AUTO) 0.9 10^3/uL (1.5-3.5); LYMPHOCYTES % (AUTO) 10.7 %; MEAN CORPUSCULAR HEMOGLOBIN 30.8 pg (27.0-31.0); MEAN CORPUSCULAR HGB CONC 33.9 g/dL (32.0-36.0); MEAN CORPUSCULAR VOLUME 90.7 fL (80.0-94.0); MEAN PLATELET VOLUME 9.1 fL (7.4-11.4); MONOCYTES % (AUTO) 11.7 %; NEUTROPHILS # (AUTO) 6.5 10^3/uL (1.5-6.6); NEUTROPHILS % (AUTO) 74.2 %; PLT - PLATELET COUNT 194 10^3/uL (130-450); RED BLOOD COUNT 4.32 10^6/uL (4.70-6.10); RED CELL DISTRIBUTION WIDTH 12.8 % (12.0-15.0); WHITE BLOOD COUNT 8.8 x10^3/uL (4.8-10.8)
[2020-03-04 06:12] LABS: CALCIUM 8.2 mg/dL (8.5-10.3); CREATININE 0.8 mg/dL (0.6-1.2); MAGNESIUM 1.6 mg/dL (1.7-2.8)
[2020-03-04] MEDS: LEVOTHYROXINE 75 MCG TABLET PO SCH (06:21)
[2020-03-04] MEDS: LEVOTHYROXINE 100 MCG TABLET PO SCH (06:21)
[2020-03-04] MEDS: PANTOPRAZOLE 40 MG TABLET PO SCH (06:21)
[2020-03-04] MEDS: LACTATED RINGERS 1,000 ML IV SCH (06:25)
[2020-03-04] MEDS: INSULIN ASPART 300 UNIT/3 ML PEN SUBQ SCH ×4 (08:19→20:54)
[2020-03-04] MEDS: TAMSULOSIN 0.4 MG CAPSULE PO SCH (08:25)
[2020-03-04] MEDS: MAGNESIUM OXIDE 400 MG TABLET PO SCH (08:25)
[2020-03-04] MEDS: FINASTERIDE 5 MG TABLET PO SCH (08:25)
[2020-03-04] MEDS: PREGABALIN 25 MG CAPSULE PO SCH ×2 (08:25→20:52)
[2020-03-04] MEDS: ASPIRIN CHEW 81 MG TABLET PO SCH (08:25)
[2020-03-04] MEDS: SACCHAROMYCES BOULARDII 250 MG CAPSULE PO SCH ×2 (08:25→17:08)
[2020-03-04] MEDS: polyethylene glycoL 3350 17 GM PACKET PO SCH (08:26)
[2020-03-04] MEDS: HEPARIN 5,000 UNIT/ML VIAL SUBQ SCH ×2 (08:26→20:56)
[2020-03-04] MEDS: METOPROLOL TARTRATE 25 MG TABLET PO SCH ×2 (08:28→20:53)
--- NOTE | 2020-03-04 15:57 | PROVIDER PROGRESS NOTE ---
Subjective - Prog Note Date Prog Note Date: 03/04/20 Prog Note Time: 16:13 - Subjective Pt reports feeling: Improved Subjective: Sitting in chair. Ate his breakfast sitting in chair and also ate his lunch sitting in chair. Had a fever last night. He is really complaining about the telemetry wires, the SCDs. Right now he feels his pain is controlled. The worst pain he has is a 4-5 out of a 10. Current Medications - Current Medications Current Medications: Active Medications Acetaminophen (Tylenol) 650 mg PO Q4HR PRN PRN Reason: Pain 1 to 4 Last Admin: 03/02/20 11:39 Dose: 650 mg Documented by: Hydrocodone Bitart/Acetaminophen ([place] 5/325) 1 tab PO Q4HR PRN PRN Reason: PAIN Last Admin: 03/04/20 15:11 Dose: 1 tab Documented by: Albuterol () 2.5 mg INH RTQ4H PRN PRN Reason: Wheezing Albuterol/Ipratropium (Duoneb) 3 ml INH QID PRN PRN Reason: Wheezing Aspirin (St Aspirin) 81 mg PO DAILY [facility] Last Admin: 03/04/20 08:25 Dose: 81 mg Documented by: Atorvastatin Calcium (Lipitor) 20 mg PO QPM [facility] Last Admin: 03/03/20 21:20 Dose: 20 mg Documented by: Budesonide (Pulmicort) 0.5 mg INH RTBID [facility] Last Admin: 03/03/20 19:48 Dose: 0.5 mg Documented by: Ciprofloxacin (Cipro) 500 mg PO BID [facility] Finasteride (Proscar) 5 mg PO DAILY [facility] Last Admin: 03/04/20 08:25 Dose: 5 mg Documented by: Formoterol Fumarate (Perforomist) 20 mcg INH RTBID [facility] Last Admin: 03/03/20 19:48 Dose: 20 mcg Documented by: Heparin Sodium (Porcine) () 5,000 unit SUBQ BID [facility] Last Admin: 03/04/20 08:26 Dose: 5,000 unit Documented by: Hydromorphone HCl (Dilaudid Inj Carp) 1 mg IVP Q4HR PRN PRN Reason: PAIN Last Admin: 03/02/20 08:16 Dose: 1 mg Documented by: Lactated Ringer's (Lr) 1,000 mls @ 83.333 mls/hr IV .Q12H [facility] Stop: 03/04/20 17:59 Last Admin: 03/04/20 06:25 Dose: 83.333 mls/hr Documented by: Insulin Aspart (Novolog) 1 - 5 unit SUBQ 0800,1200,1700,2100 [facility]; Protocol Last Admin: 03/04/20 12:31 Dose: Not Given Documented by: Levothyroxine Sodium (Synthroid) 100 mcg PO QDAC [facility] Last Admin: 03/04/20 06:21 Dose: 100 mcg Documented by: Levothyroxine Sodium (Synthroid) 75 mcg PO QDAC [facility] Last Admin: 03/04/20 06:21 Dose: 75 mcg Documented by: Magnesium Oxide (Mag Ox) 400 mg PO DAILYWM [facility] Last Admin: 03/04/20 08:25 Dose: 400 mg Documented by: Metoprolol Tartrate (Lopressor) 25 mg PO BID [facility] Last Admin: 03/04/20 08:28 Dose: 25 mg Documented by: Ondansetron HCl (Zofran Inj) 4 mg IVP Q6HR PRN PRN Reason: Nausea / Vomiting Last Admin: 03/02/20 08:31 Dose: 4 mg Documented by: Pantoprazole Sodium (Protonix) 40 mg PO QDAC [facility] Last Admin: 03/04/20 06:21 Dose: 40 mg Documented by: Polyethylene Glycol (Miralax) 17 gm PO DAILY [facility] Last Admin: 03/04/20 08:26 Dose: 17 gm Documented by: Pregabalin (Lyrica) 75 mg PO BID [facility] Last Admin: 03/04/20 08:25 Dose: 75 mg Documented by: Saccharomyces Boulardii (Florastor) 250 mg PO BIDWM [facility] Last Admin: 03/04/20 08:25 Dose: 250 mg Documented by: Sodium Chloride (Normal Saline Flush 0.9%) 10 ml IVP PRN PRN PRN Reason: NEEDED PER PROVIDER ORDERS Sodium Chloride (Normal Saline Flush 0.9%) 10 ml IVP 0100,0900,1700 [facility] Last Admin: 03/04/20 08:26 Dose: Not Given Documented by: Tamsulosin HCl (Flomax) 0.4 mg PO DAILY [facility] Last Admin: 03/04/20 08:25 Dose: 0.4 mg Documented by: Aspirin [Aspirin EC] 81 mg PO QDAC 0501/13 Ipratropium/Albuterol [Combivent Respimat] 2 puffs INH QID PRN MDD 6 PUFFS 11/11/12 Lisinopril [Prinivil] 30 mg PO QAM 11/11/12 Pregabalin [Lyrica] 75 mg PO BID 11/11/12 Rosuvastatin Calcium [Crestor] 10 mg PO HS 11/11/12 Tiotropium [place] [Spiriva] 1 puffs INH DAILY 11/11/12 metFORMIN [Glucophage] 1,000 mg PO BID 11/11/12 Finasteride [Proscar] 5 mg PO DAILY 03/01/20 Fluticasone/Salmeterol [Advair 250-50 Diskus] 2 puffs INH DAILY 03/01/20 Levothyroxine Sodium [Synthroid] 200 mcg PO DAILY 03/01/20 Tamsulosin [Flomax] 0.4 mg PO DAILY 03/01/20 Objective - Vital Signs/Intake & Output Reviewed Vital Signs: Yes Vital Signs: Vital Signs x48h Temp Pulse Pulse Resp BP BP Pulse Ox 03/04/20 15:43 36.7 C 84 24 140/76 H 96 03/04/20 13:00 36.8 C 73 20 103/58 L 94 03/04/20 09:00 36.8 C 80 21 112/80 94 03/04/20 08:35 37.1 C 91 20 109/65 93 03/04/20 08:28 105/65 Intake & Output: Intake & Output 03/01/20 03/02/20 03/03/20 03/04/20 23:59 23:59 23:59 23:59 Intake Total 3461.25 4471.155 3164.510 1445.835 Output Total 500 500 100 Balance 2961.25 3971.155 3164.510 1345.835 - Objective General Appearance: positive: No acute distress, Alert, Other (Thin, tall elderly man. He is 6 feet 1 inches tall and weighs 106.5 kg. Very, very talkative. Attempts to speak Icelandic with me. Lived in [place] for short while and asked me if I was K[place] and wanted to practice Icelandic.) Eyes Bilateral: positive: PERRL, EOMI ENT: positive: No signs of dehydration Neck: positive: No JVD Respiratory: positive: Chest non-tender. negative: Wheezes, Rales, Rhonchi Cardiovascular: positive: Regular rate & rhythm, No murmur. negative: Gallop/S4, Friction rub Abdomen: positive: Non-tender, No organomegaly, Nml bowel sounds, No distention Skin: positive: Warm, Dry Extremities: positive: Full ROM, No pedal edema Neurologic/Psychiatric: positive: Oriented x3, CN's nml (2-12), Motor nml - Lab Results Fish Bones: 03/04/20 05:35 03/04/20 05:35 Other Labs: Lab Results x24hrs 03/04/20 03/04/20 Range/Units 05:35 05:35 WBC 8.8 (4.8-10.8) x10^3/uL RBC 4.32 L (4.70-6.10) 10^6/uL Hgb 13.3 L (14.0-18.0) g/dL Hct 39.2 L (42.0-52.0) % MCV 90.7 (80.0-94.0) fL MCH 30.8 (27.0-31.0) pg MCHC 33.9 (32.0-36.0) g/dL RDW 12.8 (12.0-15.0) % Plt Count 194 (130-450) 10^3/uL MPV 9.1 (7.4-11.4) fL Neut # (Auto) 6.5 (1.5-6.6) 10^3/uL Lymph # (Auto) 0.9 L (1.5-3.5) 10^3/uL [place] # (Auto) 1.0 (0.0-1.0) 10^3/uL Eos # (Auto) 0.2 (0.0-0.7) 10^3/uL Baso # (Auto) 0.0 (0.0-0.1) 10^3/uL Absolute Nucleated RBC 0.00 x10^3/uL Nucleated RBC % 0.0 /100WBC Sodium 135 (135-145) mmol/L Potassium 4.1 (3.5-5.0) mmol/L Chloride 102 (101-111) mmol/L Carbon Dioxide 25 (21-32) mmol/L Anion Gap 8.0 (6-13) BUN 22 H (6-20) mg/dL Creatinine 0.8 (0.6-1.2) mg/dL Estimated GFR (MDRD) 94 (>89) Glucose 113 H (70-100) mg/dL Calcium 8.2 L (8.5-10.3) mg/dL Magnesium 1.6 L (1.7-2.8) mg/dL ABX Reporting Has patient been on IV antibiotics over the past 48 hours?: Yes Assessment/Plan - Problem List (1) Fever Impression: 03/04 Fever last night of 38 degrees. But his white cell count is normal at 8.8. Creatinine is normal. He is walking 40 feet with minimum assist. 03/03 Patient had a spotted fever 39.3 on yesterday, patient also had chill on last night with short term of sinus tachycardia on last night. Today he feel much better, he has no more fever or chilly on today. Patient is likely to have prostatitis to cause those symptoms Based on patient medical history and clinically presentation. We will order ESR, CRP, PSA, and ultrasound of prostate. I called the radiologist Dr. Ena Astorga, she confirm pt has no prostate abscess but not sure prostatitis, it is clinic dependent diagnosis. Patient is likely to have prostatitis. Blood culture is negative for bacteremia. We will continue meropenem. Patient might need PICC line for another 6-week intravenous antibiotics. 03/02 Patient Had fever 39.3 degrees on today, WBC still slightly elevated, patient has a normal blood pressure. Blood culture is still pending but the urinalysis indicated negative rods in the culture, sensitivities pending. Order chest x-ray is pending. Patient might have bacteremia. At this time we continue Rocephin antibiotics, Continue gently intravenous IV fluids. Give patient Tylenol as needed. If patient continue to have fever on tomorrow, then we will do the blood culture again. (2)elevated troponin 03/04: he is stable. no chest pain. too many wires and he is getting upset at them. Has been NSR without arrhythmia since admission 03/01. Review of troponin shows him to have started at 5. Then went as high as 109. And he started trending down with the last one at 60.3. I will stop tele. Stop SCDs. He has Lovenox and is getting up out of bed. Patient Had a transient elevated troponin, continued troponin testing found troponin trend down. repeat EKG show sinus rhythm without ST variation as his baseline.Patient denies any chest pain. Now patient is hemodynamic stable. Patient might have demand ischemia. We will continue patient home aspirin, heparin for DVT prophylaxis, beta-alexa, lower dosage of statin. Continue telemetry. (3) diastolic heart failure, chronic 03/04: his exam is good. no crackles, no JVD. No leg edema. Walking 40 feet with min assit. No new orders for this problem today. 821,new echo show patient has diastolic heart failure. Patient's O2 sat is stable, no active respiratory distress, Patient has no acute bilateral low extremity edema. We will precaution of intravenous IV fluids, Continue aspirin and beta-alexa and statin for patient, Continue telemetry and vital signs monitor patient 03/02, Patient has nearly syncope, he denied loss of conscious. EKG show sinus rhythm. Troponin negative. Echo review preserved EF, but with moderate pulmonary hypertension and moderate Abnormal right heart pressure. It is likely caused by significantly Dehydration and infection, possible bacteremia. Patient had near any syncope in his primary care office and his blood pressure dropped to 70s. Patient denies loss conscious or any injury. Patient creatinine is 1.7, patient creatinine usually is 0.7. Clinically patient present dehydration. We will check echo, we will continue cardiac monitor patient, It is likely caused by dehydration and poor perfusion. We will hold patient home blood pressure medicine. Patient was given intravenous fluid of two bags in the ER, we will continue give intravenous IV fluids, and laboratory miller and vital signs monitor. fall precaution. (4) right hip pain 03/04: PT did not see him today. "Patient was seated in recliner with a reported pain level of 5/10 refusing PT services due to said pain. Patient will not be se en today. 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 X-ray and CAT scan did not show fracture. Continue pain management, Continue physical therapist occupational therapist (5) UTI (urinary tract infection)/prostatits Conclusion/Plan: 03/04: WHIT Read spoke to urology about this case yesterday. WHIT rodriguez also reviewed the CT scan to look at the prostate to make sure there is no prostate abscess. Right now the thought is that he has prostatitis as the cause of his UTI. Urine culture is showing E. coli. Sensitive to everything except gentamicin. Meropenem was started on March 03. Today's day #2. Change to Cipro 500 mg p.o. twice daily. Plan for 4 to 6 weeks of therapy. Watch to see if his white cell count rebounds. He came in at 11.1 white cell count. Peaked at 14.6 white cell count on March 02. On the and today he has been normal. Today is 8.8. 03/02: Urine culture show negative rods, sensitivity is pending, We will continue Rocephin. Patient is likely failed for oral antibiotics as out-pt. Urinalysis still indicated patient has a urinary tract infection. ER started with Rocephin for patient, we will continue Rocephin treated for urinary tract infection, UA culture is pending, we will follow-up (6) Transient hypotension Conclusion/Plan: 03/04:Blood pressures have been a little soft for the last couple of days. He is sometimes under 103 systolic. But then bounces back TO 112 and is 140 this afternoon. No interventions for the lows low blood pressures noted. Yesterday he was 94 systolic. The BP seems to rebound without intervention. Will continue to monitor. He is on metoprolol. 820,Resolved Patient had transient hypotension in the PCP office , then patient had nearly syncope in his primary care office. Troponin is negative for acute PA. it Is likely caused by patient dehydration. We will hydration to the patient with intravenous IV fluids. Hold home blood pressure medicine (7) TUNDE (acute kidney injury) resolved Conclusion/Plan: 03/04: In reading history, and taking over on his case, the impression I am getting is that this gentleman has benign prostatic hypertrophy, symptoms of obstruction and developed a UTI. He failed outpatient management. This resulted in worsening of UTI, possible prostatitis, and bilateral flank pain. This in turn most likely caused acute renal failure, hyperkalemia, and his acute diastolic heart failure. Creat is 0.8 today and was 1.0 yesterday so stable pattern of improvement. 820: Significantly improved, creatinine 1.2 from previous 1.7 Patient creatinine is 1.7, his base line creatinine is 0.7, patient clinically show dehydration, we will give patient intravenous IV fluids, hold nephrologic toxic agents, Continue laboratory miller (6) Hyperkalemia Conclusion/Plan: 03/04: 4.1 today after yesterday's treatment. 821: Patient potassium is 5.2, give patient 1 dose of Kayexalate, Continue laboratory miller 820: patient potassium still 5.6 even after Kayexalate, order Order 5 units insulin, Continue laboratory miller Patient potassium 6.0, likely caused by patient TUNDE and dehydration. We will give patient 1 time kayexalate, Continue hydration with intravenous IV fluids, continue laboratory miller. (7) BPH (benign prostatic hyperplasia) Conclusion/Plan: Patient has a history of BPH, we will resume home home medication Flomax and proscar (8) HTN (hypertension) Conclusion/Plan: 03/03:Patient had transient hypotension now, we will hold the home medication lisinopril, continue intravenous IV fluids, continue vital signs monitor (9) Hypothyroidism Conclusion/Plan: 820: TSH is low, reduced Synthroid to 175 mcg daily,Follow-up PCP for further management 03/01: We will check TSH, resume home Synthroid (10) COPD (chronic obstructive pulmonary disease) Conclusion/Plan: 03/04: Yesterday afternoon respiratory therapy found him using his own handheld Combivent from home. We had asked him not to use his home medicines. He still use it again. So pharmacy now has his Combivent and we are giving him DuoNeb while he is in the hospital. Currently COPD is stable. No exacerbation. 820, stable, continue home medication and breathing treatment as needed Patient has a history of COPD with asthma, we will resume home albuterol and Duoneb breathing treatment as needed
[2020-03-04] MEDS: FORMOTEROL FUMARATE NEB 20 MCG/2 ML INH SCH ×2 (17:59→19:06)
[2020-03-04] MEDS: BUDESONIDE 0.5 MG/2 ML NEB INH SCH ×2 (17:59→19:06)
[2020-03-04] MEDS: ATORVASTATIN 40 MG TABLET PO SCH (20:53)
[2020-03-04] MEDS: CIPROFLOXACIN 250 MG TABLET PO SCH (20:54)
[2020-03-05] MEDS: SODIUM CHLORIDE FLUSH 0.9% 10 ML SYRINGE IVP SCH ×2 (00:04→08:41)
[2020-03-05 04:50] LABS: BASOPHILS % (AUTO) 0.5 %; EOSINOPHILS # (AUTO) 0.2 10^3/uL (0.0-0.7); EOSINOPHILS % (AUTO) 1.9 %; LYMPHOCYTES # (AUTO) 1.2 10^3/uL (1.5-3.5); LYMPHOCYTES % (AUTO) 15.1 %; MEAN CORPUSCULAR HEMOGLOBIN 29.5 pg (27.0-31.0); MEAN CORPUSCULAR HGB CONC 32.5 g/dL (32.0-36.0); MEAN CORPUSCULAR VOLUME 90.7 fL (80.0-94.0); MEAN PLATELET VOLUME 9.1 fL (7.4-11.4); MONOCYTES # (AUTO) 1.2 10^3/uL (0.0-1.0); MONOCYTES % (AUTO) 15.8 %; NEUTROPHILS # (AUTO) 5.1 10^3/uL (1.5-6.6); NEUTROPHILS % (AUTO) 66.1 %; PLT - PLATELET COUNT 205 10^3/uL (130-450); RED BLOOD COUNT 4.41 10^6/uL (4.70-6.10); RED CELL DISTRIBUTION WIDTH 12.8 % (12.0-15.0); WHITE BLOOD COUNT 7.8 x10^3/uL (4.8-10.8)
[2020-03-05 05:03] LABS: CALCIUM 8.2 mg/dL (8.5-10.3); CREATININE 0.8 mg/dL (0.6-1.2)
[2020-03-05] MEDS: PANTOPRAZOLE 40 MG TABLET PO SCH (05:59)
[2020-03-05] MEDS: LEVOTHYROXINE 100 MCG TABLET PO SCH (05:59)
[2020-03-05] MEDS: LEVOTHYROXINE 75 MCG TABLET PO SCH (05:59)
[2020-03-05] MEDS: BUDESONIDE 0.5 MG/2 ML NEB INH SCH ×2 (07:59→08:00)
[2020-03-05] MEDS: INSULIN ASPART 300 UNIT/3 ML PEN SUBQ SCH ×2 (08:30→12:43)
[2020-03-05] MEDS: MAGNESIUM OXIDE 400 MG TABLET PO SCH (08:39)
[2020-03-05] MEDS: SACCHAROMYCES BOULARDII 250 MG CAPSULE PO SCH (08:39)
[2020-03-05] MEDS: CIPROFLOXACIN 250 MG TABLET PO SCH (08:39)
[2020-03-05] MEDS: HEPARIN 5,000 UNIT/ML VIAL SUBQ SCH (08:40)
[2020-03-05] MEDS: TAMSULOSIN 0.4 MG CAPSULE PO SCH (08:40)
[2020-03-05] MEDS: PREGABALIN 25 MG CAPSULE PO SCH (08:40)
[2020-03-05] MEDS: FINASTERIDE 5 MG TABLET PO SCH (08:40)
[2020-03-05] MEDS: ASPIRIN CHEW 81 MG TABLET PO SCH (08:40)
[2020-03-05] MEDS: polyethylene glycoL 3350 17 GM PACKET PO SCH (08:41)
[2020-03-05] MEDS: METOPROLOL TARTRATE 25 MG TABLET PO SCH (08:43)
--- NOTE | 2020-03-05 15:55 | Discharge Plan ---
Discharge Plan Problem Reviewed?: Yes Disposition: Home, Self Care Condition: Stable Prescriptions: Ciprofloxacin [Cipro] 500 mg PO BID #56 tablet Atorvastatin [Lipitor] 20 mg PO QPM #30 tablet Metoprolol Tartrate [Lopressor] 25 mg PO BID #60 tablet Diet: Diabetic Activity Restrictions: Activity as Tolerated Shower Restrictions: No Driving Restrictions: No Instruction Topics: Prostatitis Bacterial, Probs Prostate Related Urinary Sx Health Concerns: Presented to our emergency room after almost passing out in your primary care provider's office. Prior to this you have a history of problems with urination, and a white discharge from your penis. This was accompanied by sudden urge to urinate. You were supposed to be seeing a urologist for a cystoscopy and was being treated with Macrobid for the last 2 weeks to treat a possible bladder infection. After evaluation here, you had a very low blood pressure, had all the indications of a severe infection that we feel is most likely prostatitis. Prostatitis requires up to 6 weeks of antibiotic therapy depending on how severe the infection is. Much of this got better. You had several days of fever, chills, and generalized malaise that have improved tremendously. Your weakness resolved.You were able to walk 40 feet with physical therapy without any diff iculty. Blood pressure gradually got better where it was low on admission. At 1 point you did have a drop in blood pressure associated with a rise in the heart enzyme blood test we associate with heart attack. We do not think you have a heart attack. Plan of Treatment: 1. We have sent a prescription for ciprofloxacin 500 mg twice a day for the next 2 weeks. 1 refill. Please discuss with your urologist if you take this for 6 weeks or 4 weeks. 2. Please see your primary care provider in follow-up for stress test evaluation of your heart. Until then continue an aspirin a day, metoprolol 25 mg twice a day, and a new cholesterol pill atorvastatin once a day. Atorvastatin is more indicated for people with heart disease than Crestor. So you will stop your Crestor. You can always go back to Crestor if your heart evaluation is negative. 3. We have resumed your usual medications for diabetes. While you were here you did require insulin but you refused it a couple of times. Make sure your fasting glucose remains below 125. And your glucose after eating is below 180. Your glycosylated hemoglobin was 5.5% which is excellent. 4. Blood pressure during your stay was stable. Please get your blood pressure checked in the next week or so because metoprolol can affect blood pressure. Resume your usual blood pressure medications. Care Goals: To find out the diagnosis for his urgency, frequency, and penile discharge. Assessment: Patient understands discharge instructions and promises to follow through No Smoking: If you smoke, Please STOP! Call for help. Follow-up with: NILAM DINERO MD [Primary Care Provider] -
--- NOTE | 2020-03-05 16:12 | DISCHARGE SUMMARY ---
"Discharge Summary Admit Date: 03/01/20 Discharge Date: 03/05/20 Discharging Provider: Calista Mills MD Primary Care Provider: Kai Navarro MD Code Status: Attempt Resuscitation Condition at Discharge: Stable Discharge Disposition: 01 Home, Self Care - DIAGNOSES Discharge Diagnoses with Status of Each Condition: 1. UTI with prostatitis 2. Indolent fever 3. Elevated troponin 4. Chronic diastolic heart failure 5. Right hip pain 6. Transient hypotension 7. Acute kidney injury, resolved 8. Hyperkalemia 9. BPH with lower urinary tract symptoms of hypertrophy 10. Hypertension 11 hypothyroidism 12. COPD without exacerbation - HPI History of Present Illness: Per [facility] admit H&P: This is a 74 years old male with a past medical history significant for hypertension, hyperlipidemia, hypothyroidism, asthma, COPD, sleep apnea, CPAP use, diabetic type II, diverticulitis, depression, arthritis, BPH and urinary incontinence Who presents the ER for complaint nearly syncope. Patient report from last year February he beginning problem with urination and urinary incontinence. Patient reported he see his urologist for procedure of cystoscopy for his BPH and urinary incontinence, however urologist wanted patient treated for bladder infection first, patient was prescribed Macrobid for 2 weeks. But pt report he still had Urine cloudy with flank pain in the past couple days. Patient went to his PCP office, he Becker weak, Got lightheaded with near syncope in office. Patient denies loss of conscious, denies any injury. SBP was in the 70s BP low, then IVF were started and pt's SBP came up to 118. In routine laboratory test in the ER, patient was found potassium at 6.0, creatinine is at 1.7, patient baseline creatinine was 0.7. WBC was slightly elevated to 12.1. Urinalysis Indicated patient still has urinary tract infection. Patient had CAT scan of abdomen plus Plavix, and x-ray of hip Which show unremarkable. Patient denies chest pain, fever, chill, shortness of breating, abdominal pain, nausea, vomiting. Patient was admitted for further medical management. - Past Medical History Cardiovascular: reports: Hypertension, High cholesterol Respiratory: reports: Asthma, COPD, Sleep apnea, CPAP use Neuro: reports: None Endocrine/Autoimmune: reports: Type 2 diabetes GI: reports: Diverticulitis : reports: Other HEENT: reports: Other Psych: reports: Depression Musculoskeletal: reports: Osteoarthritis, Other Derm: reports: None MRSA Hx?: No - Past Surgical History General: reports: Colonoscopy, EGD Ortho: reports: Other HEENT: reports: Tonsil/Adenoidectomy - CONSULTS | PROCEDURES Procedures: 1. Hip/pelvis x-ray without visualized acute fracture or dislocation. 2. Abdomen pelvis CT with emphysematous changes and bulla formation. Liver mildly enlarged with steatosis. Bowel normal. Diverticulosis. No ventral hernias. Bladder wall with minimal diffuse thickening. Bones without but suspicious lesions. Moderate right colonic stool. 3. Chest x-ray without acute cardiopulmonary process 4. Bladder ultrasound with prostate enlargement. Debris within the bladder indicating cystitis. 5. Urine culture with E. coli sensitive to everything but gentamicin. 6. Blood culture negative after 2 days 7. Echocardiogram with normal ejection fraction, dilated atria, moderately abnormal right heart pressures. 8. Free PSA is 0.058, PSA is 0.58 with percentage free PSA calculation 10% and low. - HOSPITAL COURSE Hospital Course: This patient presented as near syncope, weakness and fatigue in association with a year-long history of benign prostatic hypertrophy with lower urinary tract symptoms of obstruction. He has been on a 2-week antibiotic course for UTI with Bactrim. He complains of a sudden urge to urinate that is very forceful and painful. Once he urinates he feels relief but then the sensation comes back. Accompanying this has been a milky white discharge from his penis. He is getting ready to do a cystoscopy, but his urologist was treating him with antibiotics before he underwent the cystoscopy. When he was being seen in his primary care provider's office he nearly passed out. We treated him as UTI with near syncope. He did not meet the criteria for sepsis. The overall clinical scenario we were envisioning was that of a gentleman with benign prostatic hypertrophy, lower urinary tract symptoms of obstruction, possible prostatitis on top of it. This caused acute kidney injury, hyperkalemia.We reviewed his CT of the abdomen and pelvis and found no abscesses. Radiology also was discussing the case with us and stated that unless it was an abscess, prostatitis is a hard diagnosis to make on CT. But by his history, most likely this patient has prostatitis. Urine culture grew out E. coli. Blood cultures were negative. He was initially treated with Rocephin and gentamicin which was switched to meropenem. Once we grew out the appropriate bug with sensitivities, he was switched over to oral Cipro. Observed for 24 hours on cipro and had no further recurrence of fever or chills. As such, he is felt stable enough to be treated for the next 4 to 6 weeks for prostatitis. He will need to be seen by urology to confirm the diagnosis and to decide whether he gets treated for 4 or 6 weeks. As his stay went on, acute kidney injury and hyperkalemia resolved. TSH was mildly elevated. As such his Synthroid dose was reduced. He will need a repeat TSH in 4 to 6 weeks. During his stay he had significant left hip pain. That was evaluated by hip x- ray which was negative other than for osteoarthritic changes. Physical therapy did see him and he was able to walk 40 feet. Had good improvement over the course of several PT eval's and treatments. He opted not to do PT on the or the because he was feeling well enough not to need them. Transient hypotension developed at one point with a negative EKG. However troponins, which were initially 5 on admission, went to 19, then 109. They dropped to 60. He was started on aspirin, statin in the form of atorvastatin (which will replace his Crestor temporarily) and metoprolol 25 mg p.o. twice daily. We have opted to keep those medications at discharge. He will need an outpatient stress test to evaluate him for cardiac issues. Echocardiogram was done and he had an overall left ventricular systolic function that was normal with an ejection fraction of 65 to 70%. Mild to moderate tricuspid regurgitation. Moderately abnormal right heart pressures with an RVSP at rest of 54 mmHg. When compared to the prior echo, pulmonary arterial systolic pressure has increased. He has moderate LAE, moderate to severe ZOILA. Because he was on DVT prophylaxis with heparin, aspirin, and had no chest pain or hypoxia he was not felt to have a PE. Diabetic management was instituted. He rarely needed intervention. A1c is 5.5%. When he did need insulin he declined. His usual diabetic medication will be resumed at discharge.COPD was without exacerbation. We were treating with as needed DuoNeb in the hospital. We later found out he had his own hand-held medication that he was using as well. We asked him not to do so and the medication was taken to the pharmacy. At discharge, he is in stable condition. He is 6 foot 1 inch tall and weighs 106.5 kg. Alert, oriented. Wearing glasses. Neck is supple without JVD. Lungs are clear to auscultation and percussion. He is a loquacious speaker. He can speak for quite a bit of time and during that speaking he does not have any increased respiratory effort or shortness of breath. PMI is normally placed with a regular rate and rhythm. Abdomen is soft, nontender. There is no flank pain. Extremities are without edema and he ambulates in the room without any ataxia, or need for durable medical equipment. Greater than 30 minutes was spent coordinating discharge and answering his questions. - ALLERGIES Allergies/Adverse Reactions: Allergies Allergy/AdvReac Type Severity Reaction Status Date / Time celecoxib [From Celebrex] Allergy Mild Rash Verified 03/01/20 12:04 Sulfa (Sulfonamide Allergy Mild unknown Verified 03/01/20 12:04 Antibiotics) doxycycline Allergy Rash Verified 03/01/20 12:04 gabapentin [From Neurontin] Allergy Rash Verified 03/01/20 12:04 - MEDICATIONS Home Medications: Ambulatory Orders Medication Instructions Recorded Confirmed Aspirin [Aspirin EC] 81 mg PO QDAC 11/11/12 03/01/20 Ipratropium/Albuterol [Combivent 2 puffs INH QID PRN MDD 6 PUFFS 11/11/12 03/01/20 Respimat] Lisinopril [Prinivil] 30 mg PO QAM 11/11/12 03/01/20 Pregabalin [Lyrica] 75 mg PO BID 11/11/12 03/01/20 Tiotropium [place] [Spiriva] 1 puffs INH DAILY 11/11/12 03/01/20 metFORMIN [Glucophage] 1,000 mg PO BID 11/11/12 03/01/20 Finasteride [Proscar] 5 mg PO DAILY 03/01/20 03/01/20 Fluticasone/Salmeterol [Advair 2 puffs INH DAILY 03/01/20 03/01/20 250-50 Diskus] Levothyroxine Sodium [Synthroid] 200 mcg PO DAILY 03/01/20 03/01/20 Tamsulosin [Flomax] 0.4 mg PO DAILY 03/01/20 03/01/20 Atorvastatin [Lipitor] 20 mg PO QPM #30 tablet 03/05/20 Ciprofloxacin [Cipro] 500 mg PO BID #56 tablet 03/05/20 Metoprolol Tartrate [Lopressor] 25 mg PO BID #60 tablet 03/05/20 Saccharomyces Boulardii [Florastor] 250 mg PO BIDWM capsule 03/05/20 - LABS Result Diagrams: 03/05/20 04:30 03/05/20 04:30"
[2020-03-05 17:33] VITALS: BP 155/80
== END 2020-03-05 17:33 | disposition home or self-care (01) | DRG 683 ==
LOC: ED 11:55 → MS3 15:20
PROVIDERS: ADMIT Nurse Practitioner Gerontology; ATTEND Specialist
DX: N17.9 Acute kidney failure, unspecified (principal); N10 Acute pyelonephritis; E87.6 Hypokalemia; I95.9 Hypotension, unspecified; R55 Syncope and collapse; N39.0 Urinary tract infection, site not specified; E78.00 Pure hypercholesterolemia, unspecified; I50.32 Chronic diastolic (congestive) heart failure; G47.30 Sleep apnea, unspecified; E11.9 Type 2 diabetes mellitus without complications; N13.8 Other obstructive and reflux uropathy; N41.9 Inflammatory disease of prostate, unspecified; E87.5 Hyperkalemia; E86.0 Dehydration; J43.9 Emphysema, unspecified; I11.0 Hypertensive heart disease with heart failure; E03.9 Hypothyroidism, unspecified; E78.5 Hyperlipidemia, unspecified; I95.89 Other hypotension; N40.1 Benign prostatic hyperplasia with lower urinary tract symptoms; R32 Unspecified urinary incontinence; M25.551 Pain in right hip; I07.1 Rheumatic tricuspid insufficiency; I27.29 Other secondary pulmonary hypertension; B96.20 Unspecified Escherichia coli [E. coli] as the cause of diseases classified elsewhere; K57.90 Diverticulosis of intestine, part unspecified, without perforation or abscess without bleeding; Z91.14 Patient's other noncompliance with medication regimen; Z79.84 Long term (current) use of oral hypoglycemic drugs; Z79.82 Long term (current) use of aspirin; Z79.899 Other long term (current) drug therapy
CPT/HCPCS: 36415; 71045; 73502; 74177; 76857; 80048; 80053; 80061; 80076; 81001; 82803; 83036; 83605; 83690; 83735; 83880; 84100; 84132; 84153; 84154; 84443; 84484; 85025; 85651; 86140; 87040; 87077; 87086; 87181; 93005; 93306; 94640; 96361; 96374; 96375; 97161; 97166; 97530; 99284; 99285; A9270; J1170; J1815; J2185; J3490; J7040; J7120; J7626; Q9967; 81003; 83721

== ENCOUNTER 2020-03-12 16:34 | Outpatient (CLI) | payer MEDICARE, OTHER | END 2020-03-12 16:35 | disposition critical access hospital (66) | LOC: EMS 16:34 | PROVIDERS: ATTEND Surgery | DX: R09.89 Other specified symptoms and signs involving the circulatory and respiratory systems (principal) | CPT/HCPCS: A0425; A0429 ==

== ENCOUNTER 2020-03-12 16:52 | Inpatient (IN) | payer MEDICARE, OTHER ==
[2020-03-12] MEDS ORDERED: SODIUM CHLORIDE 0.9% 1,000 ML IV STA ×3 (16:59→18:40)
--- NOTE | 2020-03-12 17:00 | ED Physician Documentation ---
PD HPI SYNCOPE - Stated complaint Stated Complaint: LOW BP - History obtained from History obtained from: Patient, EMS - Additional information Additional information: Recent admission for prostatitis, while here his metoprolol was increased, but decreased back to the usual dose with his primary care physician last week. Today he was feeling a little wobbly and checked his blood pressure it was 77/58 or so and was brought in by ambulance for same, that said his blood pressure on route was on the high side. He feels fine now. He is having some trouble with constipation since discharge, no abdominal pain or nausea though. No chest pain or trouble breathing. He has been compliant with his Cipro. No fevers, chills, urinary complaints. Review of Systems Ten Systems: 10 systems reviewed and negative Constitutional: denies: Fever, Chills Cardiac: denies: Chest pain / pressure, Palpitations Respiratory: denies: Dyspnea, Cough GI: denies: Abdominal Pain PD PAST MEDICAL HISTORY - Past Medical History Cardiovascular: Hypertension, High cholesterol Respiratory: Asthma, COPD, Sleep apnea, CPAP use Neuro: None Endocrine/Autoimmune: Type 2 diabetes GI: Diverticulitis : Other HEENT: Other Psych: Depression Musculoskeletal: Osteoarthritis, Other Derm: None - Past Surgical History Past Surgical History: Yes General: Colonoscopy, EGD Ortho: Other HEENT: Tonsil/Adenoidectomy - Present Medications Home Medications: Ambulatory Orders Medication Instructions Recorded Confirmed Aspirin [Aspirin EC] 81 mg PO QDAC 11/11/12 03/01/20 Ipratropium/Albuterol [Combivent 2 puffs INH QID PRN MDD 6 PUFFS 11/11/12 03/01/20 Respimat] Lisinopril [Prinivil] 30 mg PO QAM 11/11/12 03/01/20 Pregabalin [Lyrica] 75 mg PO BID 11/11/12 03/01/20 Tiotropium [place] [Spiriva] 1 puffs INH DAILY 11/11/12 03/01/20 metFORMIN [Glucophage] 1,000 mg PO BID 11/11/12 03/01/20 Finasteride [Proscar] 5 mg PO DAILY 03/01/20 03/01/20 Fluticasone/Salmeterol [Advair 2 puffs INH DAILY 03/01/20 03/01/20 250-50 Diskus] Levothyroxine Sodium [Synthroid] 200 mcg PO DAILY 03/01/20 03/01/20 Tamsulosin [Flomax] 0.4 mg PO DAILY 03/01/20 03/01/20 Atorvastatin [Lipitor] 20 mg PO QPM #30 tablet 03/05/20 Ciprofloxacin [Cipro] 500 mg PO BID #56 tablet 03/05/20 Metoprolol Tartrate [Lopressor] 25 mg PO BID #60 tablet 03/05/20 Saccharomyces Boulardii [Florastor] 250 mg PO BIDWM capsule 03/05/20 - Allergies Allergies/Adverse Reactions: Allergies Allergy/AdvReac Type Severity Reaction Status Date / Time celecoxib [From Celebrex] Allergy Mild Rash Verified 03/01/20 12:04 Sulfa (Sulfonamide Allergy Mild unknown Verified 03/01/20 12:04 Antibiotics) doxycycline Allergy Rash Verified 03/01/20 12:04 gabapentin [From Neurontin] Allergy Rash Verified 03/01/20 12:04 - Social History Does the pt smoke?: No Smoking Status: Never smoker Does the pt drink ETOH?: Yes - POLST Patient has POLST: No PD ED PE NORMAL - Vitals Vital signs reviewed: Yes - General General: Alert and oriented X 3, No acute distress - HEENT HEENT: PERRL, EOMI - Neck Neck: Supple, no meningeal sign, No bony TTP - Cardiac Cardiac: RRR, No murmur - Respiratory Respiratory: No respiratory distress, Clear bilaterally - Abdomen Abdomen: Soft, Non tender - Back Back: No CVA TTP, No spinal TTP - Derm Derm: Normal color, Warm and dry - Extremities Extremities: No edema, No calf tenderness / cord - Neuro Neuro: Alert and oriented X 3, Normal speech Results - Vitals Vitals: Vital Signs - 24 hr 03/12/20 03/12/20 17:00 17:34 Temperature 36.5 C 36.5 C Heart Rate 66 66 Respiratory 18 18 Rate Blood Pressure 156/105 H 156/105 H O2 Saturation 95 95 Oxygen O2 Source Room air - EKG (time done) 1704 Rate: Rate (enter#) (62) Rhythm: NSR [place]: Normal Intervals: Normal AR QRS: Normal Ischemia: Non specific changes Compare to prior EKG: Unchanged from prior EKG (no chg from 03/01/20) Computer interpretation: Agree with computer - Labs Labs: Laboratory Tests 03/12/20 03/12/20 03/12/20 17:17 17:17 17:17 WBC 13.3 H RBC 4.57 L Hgb 14.1 Hct 41.8 L MCV 91.5 MCH 30.9 MCHC 33.7 RDW 13.2 Plt Count 372 MPV 8.4 Sodium 134 L Potassium 4.7 Chloride 98 L Carbon Dioxide 25 Anion Gap 11.0 BUN 27 H Creatinine 2.3 H Estimated GFR (MDRD) 28 L Glucose 109 H Lactic Acid Calcium 8.7 Total Bilirubin 0.8 AST 40 ALT 101 H Alkaline Phosphatase 103 Troponin I High Sens 7.9 Total Protein 6.8 Albumin 3.8 Globulin 3.0 Albumin/Globulin Ratio 1.3 Lipase 38 03/12/20 17:17 WBC RBC Hgb Hct MCV MCH MCHC RDW Plt Count MPV Sodium Potassium Chloride Carbon Dioxide Anion Gap BUN Creatinine Estimated GFR (MDRD) Glucose Lactic Acid 2.1 Calcium Total Bilirubin AST ALT Alkaline Phosphatase Troponin I High Sens Total Protein Albumin Globulin Albumin/Globulin Ratio Lipase PD MEDICAL DECISION MAKING - ED course ED course: 4-year-old gentleman presents from home with hypotension at home, not corroborated on route here but we did orthostatics and he went from about 155/100 down to about 80/40 just into the seated position. He also is noted to have acute kidney injury, likely from poor oral intake after discharge and spoke with Dr. Martin for admission at 5:48 PM. Departure - Departure Disposition: 66 [facility] DC/Xfer Clinical Impression: TUNDE (acute kidney injury), Orthostatic hypotension Condition: Stable
[2020-03-12 17:20] LABS: BASOPHILS % (AUTO) 0.5 %; EOSINOPHILS % (AUTO) 2.8 %; HGB - HEMOGLOBIN 14.1 g/dL (14.0-18.0); LYMPHOCYTES % (AUTO) 9.6 %; MEAN CORPUSCULAR HEMOGLOBIN 30.9 pg (27.0-31.0); MEAN CORPUSCULAR HGB CONC 33.7 g/dL (32.0-36.0); MEAN CORPUSCULAR VOLUME 91.5 fL (80.0-94.0); MEAN PLATELET VOLUME 8.4 fL (7.4-11.4); MONOCYTES % (AUTO) 12.8 %; NEUTROPHILS % (AUTO) 73.3 %; PLT - PLATELET COUNT 372 10^3/uL (130-450); RED BLOOD COUNT 4.57 10^6/uL (4.70-6.10); RED CELL DISTRIBUTION WIDTH 13.2 % (12.0-15.0); WHITE BLOOD COUNT 13.3 x10^3/uL (4.8-10.8)
[2020-03-12 17:22] LABS: ABNORMAL LYMPHS % (MANUAL) 0 %
[2020-03-12 17:33] LABS: ALBUMIN 3.8 g/dL (3.2-5.5); ALBUMIN/GLOBULIN RATIO 1.3 (1.0-2.2); BILIRUBIN,TOTAL 0.8 mg/dL (0.2-1.0); CALCIUM 8.7 mg/dL (8.5-10.3); CREATININE 2.3 mg/dL (0.6-1.2); TOTAL PROTEIN 6.8 g/dL (6.7-8.2)
[2020-03-12 17:51] LABS: BAND NEUTROPHILS % (MANUAL) 8 %; BASOPHILS # (MANUAL) 0.1 10^3/uL (0-0.1); BASOPHILS % (MANUAL) 1 %; EOSINOPHILS # (MANUAL) 0.5 10^3/uL (0-0.7); LYMPHOCYTES # (MANUAL) 1.2 10^3/uL (1.5-3.5); LYMPHOCYTES % (MANUAL) 7 %; MONOCYTES # (MANUAL) 1.6 10^3/uL (0.0-1.0); RBC MORPHOLOGY (MULTIPLE) NORMAL APPEARANCE (NORMAL)
[2020-03-12 17:53] LABS: DIFFERENTIAL COMMENT MANUAL DIFFERENTIAL; PLATELET ESTIMATE, MANUAL NORMAL (130-450,000) (NORMAL); PLATELET MORPHOLOGY RARE GIANT PLATELETS (NORMAL)
[2020-03-12] MEDS ORDERED: SODIUM CHLORIDE FLUSH 0.9% 10 ML SYRINGE IVP PRN (19:56)
[2020-03-12] MEDS ORDERED: ACETAMINOPHEN 325 MG TABLET PO PRN (19:56)
--- NOTE | 2020-03-12 20:07 | HISTORY & PHYSICAL EXAMINATION ---
Chief Complaint - Chief Complaint Chief Complaint: syncope History of Present Illness - Admitted From Admitted From:: [facility] ED - History Obtained From Records Reviewed: Yes History obtained from: Patient - History of Present Illness HPI Comment/Other: Patient is a 74-year-old male who presents to the ED with complaint of dizziness. He was recently discharged from the hospital 1 week ago on March 05, 2020. He had been admitted with prostatitis and was discharged on Cipro 500 mg twice daily. Since discharge home his oral intake of fluids has been significantly low. This morning he attempted to stand and described experiencing a foggy vision and losing his balance. He did not fall, hit his head or lose consciousness. He called the [place] nurse and was advised to go to the hospital so he subsequently called 911. In the ED he was found to have a systolic blood pressure as low as 80 going from lying to sitting position. As a result he was presented for admission for further treatment. He was also found to have a creatinine of 2.3. At bedside he denied chest pain, dyspnea, abdominal pain, nausea, vomiting, fever or chills. History - Past Medical History Cardiovascular: reports: Hypertension, High cholesterol Respiratory: reports: Asthma, COPD, Sleep apnea, CPAP use Neuro: reports: None Endocrine/Autoimmune: reports: Type 2 diabetes GI: reports: Diverticulitis : reports: Other HEENT: reports: Other Psych: reports: Depression Musculoskeletal: reports: Osteoarthritis, Other Derm: reports: None MRSA Hx?: No - Past Surgical History General: reports: Colonoscopy, EGD Ortho: reports: Other HEENT: reports: Tonsil/Adenoidectomy - Family & Social History Family History Comment/Other: Patient's father at age 98 of natural causes. His mother at age 94. He is a . He has 2 children. Living arrangement: At home Living Situation: Alone Social History Notes: He denies smoking, alcohol use or recreational substance use. He is retired from service - POLST Patient has POLST: No POLST Status: Full Code Meds/Allgy - Home Medications Home Medications: Ambulatory Orders Medication Instructions Recorded Confirmed Aspirin [Aspirin EC] 81 mg PO QDAC 11/11/12 03/01/20 Ipratropium/Albuterol [Combivent 2 puffs INH QID PRN MDD 6 PUFFS 11/11/12 03/01/20 Respimat] Lisinopril [Prinivil] 30 mg PO QAM 11/11/12 03/01/20 Pregabalin [Lyrica] 75 mg PO BID 11/11/12 03/01/20 Tiotropium [place] [Spiriva] 1 puffs INH DAILY 11/11/12 03/01/20 metFORMIN [Glucophage] 1,000 mg PO BID 11/11/12 03/01/20 Finasteride [Proscar] 5 mg PO DAILY 03/01/20 03/01/20 Fluticasone/Salmeterol [Advair 2 puffs INH DAILY 03/01/20 03/01/20 250-50 Diskus] Levothyroxine Sodium [Synthroid] 200 mcg PO DAILY 03/01/20 03/01/20 Tamsulosin [Flomax] 0.4 mg PO DAILY 03/01/20 03/01/20 Atorvastatin [Lipitor] 20 mg PO QPM #30 tablet 03/05/20 Ciprofloxacin [Cipro] 500 mg PO BID #56 tablet 03/05/20 Metoprolol Tartrate [Lopressor] 25 mg PO BID #60 tablet 03/05/20 Saccharomyces Boulardii [Florastor] 250 mg PO BIDWM capsule 03/05/20 - Allergies Allergies/Adverse Reactions: Allergies Allergy/AdvReac Type Severity Reaction Status Date / Time celecoxib [From Celebrex] Allergy Mild Rash Verified 03/01/20 12:04 Sulfa (Sulfonamide Allergy Mild unknown Verified 03/01/20 12:04 Antibiotics) doxycycline Allergy Rash Verified 03/01/20 12:04 gabapentin [From Neurontin] Allergy Rash Verified 03/01/20 12:04 Review of Systems - Constitutional Constitutional: denies: Fatigue, Fever, Chills - Eyes Eyes: denies: Pain - Ears, Nose & Throat Ears, Nose & Throat: denies: Ear pain - Cardiovascular Cariovascular: reports: Lightheadedness, Syncope - Respiratory Respiratory: denies: Cough, Wheezing, SOB at rest, SOB with exertion - Gastrointestinal Gastrointestinal: denies: Abdominal pain, Abdominal distention, Nausea, Vomiting - Genitourinary Genitourinary: denies: Dysuria, Frequency, Urgency, Hematuria - Musculoskeletal Musculoskeletal: denies: Back pain - Integumentary Integumentary: denies: Rash - Neurological Neurological: reports: Dizziness. denies: Focal weakness - Psychiatric Psychiatric: denies: Depression, Anxiety - Endocrine Endocrine: denies: Polyuria, Polydypsia - Hematologic/Lymphatic Hematologic/Lymphatic: denies: Anemia, Bruising, Petechiae Prior Level of Functionality: Patient is usually independent of activities of daily living Exam - Vital Signs Vital Signs: Vital Signs x48h Temp Pulse Pulse Pulse Resp BP BP 03/12/20 19:56 36.3 C L 65 19 92/53 L 03/12/20 19:15 64 14 88/55 L 03/12/20 18:45 68 16 71/43 L 03/12/20 17:58 85 66 80/65 L 03/12/20 17:34 36.5 C 66 18 156/105 H 03/12/20 17:00 36.5 C 66 18 156/105 H BP Pulse Ox 03/12/20 19:56 99 03/12/20 19:15 94 03/12/20 18:45 100 03/12/20 17:58 87/59 L 03/12/20 17:34 95 03/12/20 17:00 95 - Physical Exam General Appearance: positive: No acute distress, Alert Eyes Bilateral: positive: PERRL, EOMI ENT: positive: Dry mucous membranes Neck: positive: No JVD, Trachea midline Respiratory: positive: Chest non-tender, No respiratory distress, Breath sounds nml. negative: Wheezes, Rales, Rhonchi Cardiovascular: positive: Regular rate & rhythm, No murmur Abdomen: positive: Non-tender, No organomegaly, Nml bowel sounds, No distention. negative: Guarding, Rebound Back: positive: Nml inspection Skin: positive: Color nml, No rash, Warm, Dry Extremities: positive: Non-tender, Nml appearance, No pedal edema Neurologic/Psychiatric: positive: Oriented x3, Mood/affect nml Conclusion/Plan - Problem List (1) TUNDE (acute kidney injury) Conclusion/Plan: Likely secondary to dehydration. Patient received 2 L of normal saline boluses in the ED. We will continue IV hydration with normal saline at 125 mils an hour. Anticipating improvement with morning labs. (2) Orthostatic hypotension Conclusion/Plan: Secondary to dehydration. Actively hydrating patient currently. We will repeat orthostatics in the morning. Hold all antihypertensives for now. (3) Diabetes mellitus Conclusion/Plan: We will hold patient's metformin for now. Sliding scale insulin Accu-Cheks. Patient's last hemoglobin A1c was 5.5. The patient states that he is on Ozempic once a week every Friday. It is a shot he receives subcu. He last had it today March 12, 2020. He also reports he is on Lantus 45 units subcu every morning. This would need to be verified by pharmacy before resuming. Qualifiers: Diabetes mellitus type: type 2 (4) Hyperlipidemia Conclusion/Plan: On atorvastatin 20 mg p.o. every afternoon. Will resume once verified. (5) Hypothyroidism Conclusion/Plan: On Synthroid 200 mcg daily. Will resume once verified. (6) COPD (chronic obstructive pulmonary disease) Conclusion/Plan: Not in exacerbation. Patient is on Advair at home. Will order DuoNeb as needed. (7) BPH (benign prostatic hyperplasia) Conclusion/Plan: Finasteride ordered. We will hold tamsulosin. (8) Diabetic neuropathy Conclusion/Plan: On Lyrica. Continue. (9) History of prostatitis Conclusion/Plan: Patient was recently discharged on Cipro 500 mg p.o. twice daily. He was to take it for a total of 21 days. We will continue patient's antibiotics. He was supposed to see urology at the [place] for cystoscopy. This was postponed due to his last admission - Lab Results Fish Bones: 03/12/20 17:17 03/12/20 17:17 Core Measures - Anticipated LOS I expect patient to be DC'd or transferred within 96 hours.: Yes - DVT/VTE - Prophylaxis VTE/DVT Device ordered at admit?: Yes
[2020-03-12] MEDS: SODIUM CHLORIDE 0.9% 1,000 ML IV SCH (20:22)
[2020-03-12] MEDS ORDERED: IPRATROPIUM/ALBUTEROL 3 ML NEB INH PRN (20:42)
[2020-03-12] MEDS ORDERED: SODIUM CHLORIDE 0.9% 500 ML IV ONE (21:36)
[2020-03-12] MEDS: ATORVASTATIN 40 MG TABLET PO SCH (21:53)
[2020-03-12] MEDS: INSULIN ASPART 300 UNIT/3 ML PEN SUBQ SCH (22:02)
[2020-03-12] MEDS: CIPROFLOXACIN 250 MG TABLET PO SCH (22:05)
[2020-03-12] MEDS: PREGABALIN 25 MG CAPSULE PO SCH (22:05)
[2020-03-12] MEDS: SODIUM CHLORIDE FLUSH 0.9% 10 ML SYRINGE IVP SCH (23:57)
[2020-03-13] MEDS ORDERED: MIN OIL/DIMETHICON/COCONUT OIL 92 GM TUBE TOP PRN (01:24)
[2020-03-13] MEDS: SODIUM CHLORIDE 0.9% 1,000 ML IV SCH ×3 (02:05→18:02)
[2020-03-13 04:30] LABS: BILIRUBIN,URINE NEGATIVE (NEGATIVE); GLUCOSE, URINE (UA) NEGATIVE (NEGATIVE); KETONES,URINE (UA) NEGATIVE (NEGATIVE); LEUKOCYTE ESTERASE, URINE TRACE (NEGATIVE); NITRITE,URINE NEGATIVE (NEGATIVE); OCCULT BLOOD,URINE MODERATE (NEGATIVE); PH,URINE 5.5 PH (5.0-7.5); PROTEIN,URINE NEGATIVE (NEGATIVE); UROBILINOGEN,URINE 0.2 (NORMAL) E.U./dL (NORMAL)
[2020-03-13 04:31] LABS: CLARITY,URINE CLEAR (CLEAR)
[2020-03-13 04:37] LABS: BACTERIA,URINE Few /HPF (None Seen); CASTS, URINE 3-5 Hyaline Casts /LPF; SQUAMOUS EPITHELIAL CELL,UR NONE SEEN (<= Few)
[2020-03-13 05:34] LABS: BASOPHILS # (AUTO) 0.1 10^3/uL (0.0-0.1); BASOPHILS % (AUTO) 0.6 %; EOSINOPHILS # (AUTO) 0.4 10^3/uL (0.0-0.7); EOSINOPHILS % (AUTO) 4.6 %; HGB - HEMOGLOBIN 12.2 g/dL (14.0-18.0); LYMPHOCYTES # (AUTO) 1.2 10^3/uL (1.5-3.5); LYMPHOCYTES % (AUTO) 13.9 %; MEAN CORPUSCULAR HEMOGLOBIN 29.5 pg (27.0-31.0); MEAN CORPUSCULAR HGB CONC 31.7 g/dL (32.0-36.0); MEAN PLATELET VOLUME 8.6 fL (7.4-11.4); MONOCYTES # (AUTO) 1.2 10^3/uL (0.0-1.0); MONOCYTES % (AUTO) 13.9 %; NEUTROPHILS # (AUTO) 5.8 10^3/uL (1.5-6.6); PLT - PLATELET COUNT 298 10^3/uL (130-450); RED BLOOD COUNT 4.14 10^6/uL (4.70-6.10); RED CELL DISTRIBUTION WIDTH 13.3 % (12.0-15.0); WHITE BLOOD COUNT 8.8 x10^3/uL (4.8-10.8)
[2020-03-13 05:42] LABS: CALCIUM 7.9 mg/dL (8.5-10.3); CREATININE 1.3 mg/dL (0.6-1.2)
[2020-03-13] MEDS: PANTOPRAZOLE 40 MG TABLET PO SCH (06:57)
[2020-03-13] MEDS: LEVOTHYROXINE 100 MCG TABLET PO SCH (06:57)
[2020-03-13] MEDS: ASPIRIN EC 81 MG TABLET PO SCH (08:38)
[2020-03-13] MEDS: CIPROFLOXACIN 250 MG TABLET PO SCH ×2 (08:38→21:45)
[2020-03-13] MEDS: PREGABALIN 25 MG CAPSULE PO SCH ×2 (08:39→21:44)
[2020-03-13] MEDS: INSULIN ASPART 300 UNIT/3 ML PEN SUBQ SCH ×4 (08:39→21:46)
[2020-03-13] MEDS: FINASTERIDE 5 MG TABLET PO SCH (08:39)
[2020-03-13] MEDS: SODIUM CHLORIDE FLUSH 0.9% 10 ML SYRINGE IVP SCH ×2 (08:40→17:08)
--- NOTE | 2020-03-13 12:57 | PHARMACY PROGRESS NOTE ---
- Best Possible Medication History Admit Date and Time: 03/12/201815 Processed by: Pharmacy Medication History completed: Yes Patient Interview: Completed Secondary Source(s): Physician records, Pharmacy records As the person ultimately responsible for medication therapy, providers are able to order a medication from an existing home medication list in [facility] via the "Reconcile Routine" prior to Confirmation of that medication by pit crew support worker. Such practice is discouraged except when the physician, in their clinical judgment, deems that a medical need exists for a medication without regard to previous use.
--- NOTE | 2020-03-13 18:24 | PROVIDER PROGRESS NOTE ---
Assessment/Plan - Problem List (1) TUNDE (acute kidney injury) Assessment/Plan: From to dehydration, improving creat with 2 L of normal saline boluses in the ED and iv fluids continue at 125 mils an hour. Follow BMP daily (2) Orthostatic hypotension Assessment/Plan: Secondary to dehydration. Actively hydrating patient currently. Patient requested to be discharged but then understood that he would not be discharged today as he still gets lightheaded and orthostatic with blood pressure in the 80s when he is sitting in the upright position. Monitoring orthostatic VS daily or q shift. Holding all antihypertensives for now. (3) Diabetes mellitus Qualifiers: Diabetes mellitus type: type 2 Assessment/Plan: Patient's last hemoglobin A1c was 5.5. We will hold patient's metformin for now. The patient states that he is on Ozempic once a week every Friday. It is a shot he receives subcu. He last had it today March 12, 2020. He also reports he is on Lantus 45 units subcu every morning. This was apparently verified by pharmacy Sliding scale insulin Accu-Cheks are planned while here, no Ozempic and not such a high dose of Lantus due to too low of A1c. (4) History of prostatitis Assessment/Plan: Patient was recently discharged from here on Cipro 500 mg p.o. twice daily. He was to take it for a total of 21 days. We will continue patient's antibiotics. He was supposed to see urology at the [facility] for cystoscopy. This was postponed due to his last admission (5) Hyperlipidemia Assessment/Plan: On atorvastatin 20 mg p.o. every afternoon. (6) Hypothyroidism Assessment/Plan: On Synthroid 200 mcg daily. (7) COPD (chronic obstructive pulmonary disease) Assessment/Plan: Not in exacerbation. Patient is on Advair at home. Will order DuoNeb as needed. (8) BPH (benign prostatic hyperplasia) Assessment/Plan: Finasteride ordered. We will hold tamsulosin, due to low BP/symptomatic orthostasis. (9) Diabetic neuropathy Assessment/Plan: On Lyrica. Continue. - Current Meds Current Meds: Current Medications Generic Name Dose Route Start Last Admin Trade Name Freq PRN Reason Stop Dose Admin Aspirin 81 mg 03/13/20 09:00 03/13/20 08:38 Ecotrin PO 81 mg DAILY PARKER Administration Atorvastatin Calcium 20 mg 03/12/20 21:00 03/12/20 21:53 Lipitor PO 20 mg QPM PARKER Administration Ciprofloxacin 500 mg 03/12/20 22:00 03/13/20 08:38 Cipro PO 500 mg BID PARKER Administration Finasteride 5 mg 03/13/20 09:00 03/13/20 08:39 Proscar PO 5 mg DAILY PARKER Administration Sodium Chloride 1,000 mls @ 125 mls/hr 03/12/20 19:00 03/13/20 18:02 Normal Saline 0.9% IV 125 mls/hr .Q8H PARKER Administration Insulin Aspart 1 - 5 unit 03/12/20 21:00 03/13/20 17:08 Novolog SUBQ Not Given 0800,1200,1700,2100 [facility] Protocol Levothyroxine Sodium 200 mcg 03/13/20 07:00 03/13/20 06:57 Synthroid PO 200 mcg QDAC PARKER Administration Mineral Oil 1 applic 03/13/20 01:24 03/13/20 02:04 Cavilon TOP 1 applic PRN PRN Administration Skin Care Pantoprazole Sodium 40 mg 03/13/20 07:00 03/13/20 06:57 Protonix PO 40 mg QDAC PARKER Administration Pregabalin 75 mg 03/12/20 22:00 03/13/20 08:39 Lyrica PO 75 mg BID PARKER Administration Sodium Chloride 10 ml 03/13/20 01:00 03/13/20 17:08 Normal Saline Flush 0.9% IVP Not Given 0100,0900,1700 [facility] - Lab Result Fish Bone Diagrams: 03/13/20 05:05 03/13/20 05:05 - Additional Planning My Orders: My Active Orders 03/12/20 19:00 Sodium Chloride 0.9% [Normal Saline 0.9%] 1,000 ml IV 125 mls/hr 03/12/20 23:00 Orthostatic [Vital Signs - Orthostatic] [RC] Q8H 03/13/20 01:24 Min Oil/Dimeth/Coconut Oil Crm [Cavilon] 1 applic TOP PRN PRN Subjective - Subjective Patient Reports: Feeling Better, Other (Still lightheaded when he sits up. He reports that he forgets to drink because "he is not thirsty ever") Objective Vital Signs: Vital Signs - 24 hr 03/12/20 03/12/20 03/12/20 18:45 19:15 19:56 Temperature 36.3 C L Heart Rate 68 64 65 Heart Rate [ Brachial] Heart Rate [ Monitoring electrodes] Respiratory 16 14 19 Rate Blood Pressure 71/43 L 88/55 L 92/53 L Blood Pressure [Right Brachial artery] O2 Saturation 100 94 99 03/12/20 03/12/20 03/13/20 20:19 23:00 00:00 Temperature 37.0 C 37.2 C Heart Rate 75 Heart Rate [ 81 Brachial] Heart Rate [ 75 Monitoring electrodes] Respiratory 24 24 18 Rate Blood Pressure Blood Pressure 87/70 L 133/64 H [Right Brachial artery] O2 Saturation 96 94 03/13/20 03/13/20 03/13/20 04:16 08:00 12:20 Temperature 36.9 C 37.1 C Heart Rate Heart Rate [ 68 69 61 Brachial] Heart Rate [ Monitoring electrodes] Respiratory 18 18 18 Rate Blood Pressure Blood Pressure 109/54 L 112/59 L 106/54 L [Right Brachial artery] O2 Saturation 93 92 97 03/13/20 16:00 Temperature 36.8 C Heart Rate Heart Rate [ 60 Brachial] Heart Rate [ Monitoring electrodes] Respiratory 20 Rate Blood Pressure Blood Pressure 104/57 L [Right Brachial artery] O2 Saturation 94 Oxygen O2 Source Room air I&O (Last 24 Hrs): Intake and Output Totals x24h 03/11/20 03/12/20 03/13/20 23:59 23:59 23:59 Intake Total 3415 3108.333 Output Total 100 160 Balance 3315 2948.333 General: Alert, Oriented x3 HEENT: Mucous membr. moist/pink, Other (Poor dentition with many yellow to) Neck: Supple, No JVD Neuro: Alert, Non Focal Cardiovascular: Regular rate, No murmurs Respiratory: No respiratory distress, Breath sounds nml Abdomen: Normal bowel sounds, Soft Extremities: No edema - Results Results: Laboratory Results WBC 8.8 x10^3/uL (4.8-10.8) 03/13/20 05:05 RBC 4.14 10^6/uL (4.70-6.10) L 03/13/20 05:05 Hgb 12.2 g/dL (14.0-18.0) L 03/13/20 05:05 Hct 38.5 % (42.0-52.0) L 03/13/20 05:05 MCV 93.0 fL (80.0-94.0) 03/13/20 05:05 MCH 29.5 pg (27.0-31.0) 03/13/20 05:05 MCHC 31.7 g/dL (32.0-36.0) L 03/13/20 05:05 RDW 13.3 % (12.0-15.0) 03/13/20 05:05 Plt Count 298 10^3/uL (130-450) 03/13/20 05:05 MPV 8.6 fL (7.4-11.4) 03/13/20 05:05 Neut # (Auto) 5.8 10^3/uL (1.5-6.6) 03/13/20 05:05 Lymph # (Auto) 1.2 10^3/uL (1.5-3.5) L 03/13/20 05:05 [place] # (Auto) 1.2 10^3/uL (0.0-1.0) H 03/13/20 05:05 Eos # (Auto) 0.4 10^3/uL (0.0-0.7) 03/13/20 05:05 Baso # (Auto) 0.1 10^3/uL (0.0-0.1) 03/13/20 05:05 Absolute Nucleated RBC 0.00 x10^3/uL 03/13/20 05:05 Total Counted 100 03/12/20 17:17 Band Neuts % (Manual) 8 % (0-10) 03/12/20 17:17 Reactive Lymphs % (Man) 2 % 03/12/20 17:17 Abnorm Lymph % (Manual) 0 % 03/12/20 17:17 Nucleated RBC % 0.0 /100WBC 03/13/20 05:05 Neutrophils # (Manual) 9.8 10^3/uL (1.5-6.6) H 03/12/20 17:17 Lymphocytes # (Manual) 1.2 10^3/uL (1.5-3.5) L 03/12/20 17:17 Monocytes # (Manual) 1.6 10^3/uL (0.0-1.0) H 03/12/20 17:17 Eosinophils # (Manual) 0.5 10^3/uL (0-0.7) 03/12/20 17:17 Basophils # (Manual) 0.1 10^3/uL (0-0.1) 03/12/20 17:17 Differential Comment MANUAL DIFFERENTIAL 03/12/20 17:17 Platelet Estimate NORMAL (130-450,000) (NORMAL) 03/12/20 17:17 Platelet Morphology RARE GIANT PLATELETS (NORMAL) 03/12/20 17:17 RBC Morph Micro Appear NORMAL APPEARANCE (NORMAL) 03/12/20 17:17 Sodium 138 mmol/L (135-145) 03/13/20 05:05 Potassium 3.9 mmol/L (3.5-5.0) 03/13/20 05:05 Chloride 105 mmol/L (101-111) 03/13/20 05:05 Carbon Dioxide 26 mmol/L (21-32) 03/13/20 05:05 Anion Gap 7.0 (6-13) 03/13/20 05:05 BUN 21 mg/dL (6-20) H 03/13/20 05:05 Creatinine 1.3 mg/dL (0.6-1.2) H 03/13/20 05:05 Estimated GFR (MDRD) 54 (>89) L 03/13/20 05:05 Glucose 101 mg/dL (70-100) H 03/13/20 05:05 POC Whole Bld Glucose 93 mg/dL (70 - 100) 03/13/20 16:53 Lactic Acid 2.1 mmol/L (0.5-2.2) 03/12/20 17:17 Calcium 7.9 mg/dL (8.5-10.3) L 03/13/20 05:05 Total Bilirubin 0.8 mg/dL (0.2-1.0) 03/12/20 17:17 AST 40 IU/L (10-42) 03/12/20 17:17 ALT 101 IU/L (10-60) H 03/12/20 17:17 Alkaline Phosphatase 103 IU/L (42-121) 03/12/20 17:17 Troponin I High Sens 7.9 ng/L (2.3-19.7) 03/12/20 17:17 Total Protein 6.8 g/dL (6.7-8.2) 03/12/20 17:17 Albumin 3.8 g/dL (3.2-5.5) 03/12/20 17:17 Globulin 3.0 g/dL (2.1-4.2) 03/12/20 17:17 Albumin/Globulin Ratio 1.3 (1.0-2.2) 03/12/20 17:17 Lipase 38 U/L (22-51) 03/12/20 17:17 Urine Color YELLOW 03/12/20 20:00 Urine Clarity CLEAR (CLEAR) 03/12/20 20:00 Urine pH 5.5 PH (5.0-7.5) 03/12/20 20:00 Ur Specific [place] 1.015 (1.002-1.030) 03/12/20 20:00 Urine Protein NEGATIVE mg/dL (NEGATIVE) 03/12/20 20:00 Urine Glucose (UA) NEGATIVE mg/dL (NEGATIVE) 03/12/20 20:00 Urine Ketones NEGATIVE mg/dL (NEGATIVE) 03/12/20 20:00 Urine Occult Blood MODERATE (NEGATIVE) H 03/12/20 20:00 Urine Nitrite NEGATIVE (NEGATIVE) 03/12/20 20:00 Urine Bilirubin NEGATIVE (NEGATIVE) 03/12/20 20:00 Urine Urobilinogen 0.2 (NORMAL) E.U./dL (NORMAL) 03/12/20 20:00 Ur Leukocyte Esterase TRACE (NEGATIVE) H 03/12/20 20:00 Urine RBC 6-10 /HPF (0-5) H 03/12/20 20:00 Urine WBC >25 /HPF (0-3) H 03/12/20 20:00 Ur Squamous Epith Cells NONE SEEN (<= Few) 03/12/20 20:00 Urine Bacteria Few /HPF (None Seen) 03/12/20 20:00 Urine Casts 3-5 Hyaline Casts /LPF 03/12/20 20:00 Urine Culture Comments INDICATED 03/12/20 20:00 - Procedures Procedures: Procedures CATARAC PHACOEMULS/ASPIR (12/29/13) ENDOSC POLYPECTOMY OF LG INTEST (01/18/15) ESOPHAGOGASTRODUODENOSCOPY [EGD] W/CLOSED BIOPSY (03/07/15) INSERT LENS AT CATAR EXT (12/29/13) LID RECONSTRUCTION NOS (11/11/12)
[2020-03-13] MEDS: ATORVASTATIN 40 MG TABLET PO SCH (21:45)
[2020-03-14] MEDS: SODIUM CHLORIDE FLUSH 0.9% 10 ML SYRINGE IVP SCH (00:32)
[2020-03-14] MEDS: SODIUM CHLORIDE 0.9% 1,000 ML IV SCH (01:38)
[2020-03-14 03:48] LABS: BASOPHILS # (AUTO) 0.1 10^3/uL (0.0-0.1); BASOPHILS % (AUTO) 0.8 %; EOSINOPHILS # (AUTO) 0.4 10^3/uL (0.0-0.7); EOSINOPHILS % (AUTO) 5.4 %; HGB - HEMOGLOBIN 13.1 g/dL (14.0-18.0); LYMPHOCYTES # (AUTO) 1.2 10^3/uL (1.5-3.5); LYMPHOCYTES % (AUTO) 15.1 %; MEAN CORPUSCULAR HEMOGLOBIN 31.3 pg (27.0-31.0); MEAN CORPUSCULAR HGB CONC 33.3 g/dL (32.0-36.0); MEAN CORPUSCULAR VOLUME 93.8 fL (80.0-94.0); MEAN PLATELET VOLUME 8.2 fL (7.4-11.4); MONOCYTES # (AUTO) 1.1 10^3/uL (0.0-1.0); MONOCYTES % (AUTO) 13.8 %; NEUTROPHILS # (AUTO) 5.1 10^3/uL (1.5-6.6); NEUTROPHILS % (AUTO) 64.1 %; PLT - PLATELET COUNT 289 10^3/uL (130-450); RED BLOOD COUNT 4.19 10^6/uL (4.70-6.10); RED CELL DISTRIBUTION WIDTH 13.3 % (12.0-15.0)
[2020-03-14 03:59] LABS: CALCIUM 8.3 mg/dL (8.5-10.3); CREATININE 0.9 mg/dL (0.6-1.2)
[2020-03-14] MEDS: LEVOTHYROXINE 100 MCG TABLET PO SCH (06:42)
[2020-03-14] MEDS: PANTOPRAZOLE 40 MG TABLET PO SCH (06:42)
[2020-03-14] MEDS: INSULIN ASPART 300 UNIT/3 ML PEN SUBQ SCH (07:58)
--- NOTE | 2020-03-14 08:19 | Discharge Plan ---
Discharge Plan Problem Reviewed?: Yes Disposition: Home, Self Care Condition: Stable Prescriptions: Levothyroxine [Synthroid] 100 mcg PO QDAC #30 tablet Levothyroxine [Synthroid] 75 mcg PO QDAC #30 tablet Diet: Diabetic Activity Restrictions: Activity as Tolerated Health Concerns: You were seen in the hospital because of dehydration. This caused your kidney numbers to be elevated but they have improved with IV fluids. Your blood pressure also decreased significantly when you would stand up. This is likely due to dehydration as well as some of the medications you are on at home. You have improved with IV fluids. It is important that you stop taking the lisinopril and Flomax for the time being as these can cause your blood pressure to drop when standing. It will be important to follow-up with your primary care provider as these may need to be resumed in the future. Plan of Treatment: Please continue to take the ciprofloxacin which is an antibiotic that was prescribed to you from your previous hospitalization due to concern for prostate infection. You will need to take this for at least 4 weeks and you need to follow-up with a urologist to discuss optimal length of treatment. Please decrease your levothyroxine dose to 175 mcg in the morning rather than 200. I have provided you with a new prescription for this. The dose you were previously taking is too high for you. You will need labs checked again in about 4-6 weeks. Your blood glucose has been well controlled during this hospitalization without any insulin. Please stop taking Lantus and Ozempic at home but you may continue metformin. Please follow-up with your primary care provider for further follow-up. Please also stop taking Flomax and lisinopril for the time being as these can cause you to have a low blood pressure when you are standing. This may potentially need to be resumed in the future but for the time being it is recommended that you stop taking them. It is also important that when you stand up from a seated position to stand up slowly. Please stay hydrated and drink plenty of fluids. Assessment: Patient expressed understanding of the treatment plan. Additional Instructions or Follow Up instructions: Please follow-up with your primary care provider within 1 week. It is also important that you follow-up with a urologist. No Smoking: If you smoke, Please STOP! Call for help. Follow-up with: NILAM DINERO MD [Primary Care Provider] -
[2020-03-14] MEDS: CIPROFLOXACIN 250 MG TABLET PO SCH (08:35)
[2020-03-14] MEDS: PREGABALIN 25 MG CAPSULE PO SCH (08:35)
[2020-03-14] MEDS: ASPIRIN EC 81 MG TABLET PO SCH (08:35)
[2020-03-14] MEDS: FINASTERIDE 5 MG TABLET PO SCH (08:35)
[2020-03-14 08:37] VITALS: BP 128/69
[2020-03-14] MEDS ORDERED: NYSTATIN POWDER 15 GM TOP SCH (09:00)
--- NOTE | 2020-03-14 09:00 | DISCHARGE SUMMARY ---
Discharge Summary Admit Date: 03/12/20 Discharge Date: 03/14/20 Discharging Provider: Angel Brito Primary Care Provider: Kai Navarro Code Status: Attempt Resuscitation Condition at Discharge: Stable Discharge Disposition: Home, Self Care - DIAGNOSES Admission Diagnoses: Acute kidney injury Orthostatic hypotension Diabetes mellitus Hyperlipidemia Hypothyroidism COPD BPH Diabetic neuropathy History of prostatitis Discharge Diagnoses with Status of Each Condition: Acute kidney injury - resolved. Orthostatic hypotension - resolved. Diabetes mellitus type 2 - stable. Hypothyroidism - stable. COPD - stable. Prostatitis - stable. BPH - stable. Diabetic neuropathy - stable. - HPI History of Present Illness: H&P per Dr. Albrecht: Patient is a 74-year-old male who presents to the ED with complaint of dizziness. He was recently discharged from the hospital 1 week ago on March 05, 2020. He had been admitted with prostatitis and was discharged on Cipro 500 mg twice daily. Since discharge home his oral intake of fluids has been significantly low. This morning he attempted to stand and described experiencing a foggy vision and losing his balance. He did not fall, hit his head or lose consciousness. He called the [facility] nurse and was advised to go to the hospital so he subsequently called 911. In the ED he was found to have a systolic blood pressure as low as 80 going from lying to sitting position. As a result he was presented for admission for further treatment. He was also found to have a creatinine of 2.3. At bedside he denied chest pain, dyspnea, abdominal pain, nausea, vomiting, fever or chills. - HOSPITAL COURSE Hospital Course: He was admitted to the floor for acute kidney injury and orthostatic hypotension. He was treated with IV fluids with improvement in his renal function. His home lisinopril and Flomax were held. He remained orthostatic following day but on the day of discharge he is no longer orthostatic. His home ciprofloxacin was continued during his hospitalization for his prostatitis. His renal function returned to baseline. TSH was low at 0.1 during his prior hospitalization. He continued to take the same dose of levothyroxine at home. I discontinued this and decreased to 175 mcg from 200 mcg. I asked him to continue the lower dose and have a repeat TSH in 4 to 6 weeks. His A1c was 5.5% during his prior hospitalization as well. His blood glucose remained quite well controlled during his hospitalization despite him receiving no insulin. After discussion with the dietitian, it was felt best to discontinue the Lantus and Ozempic and to continue the metformin for the time being. I asked him to continue to check his blood glucose at home and to follow-up with his primary care provider. His home lisinopril and Flomax have also been held on discharge. He will continue finasteride. I asked him to follow-up with his primary care provider as the Flomax and lisinopril may need to be resumed in the future and this can be done at a lower dose. I also asked him to continue to follow-up with urology given the prostatitis and to continue the ciprofloxacin as previously prescribed for at least 4 weeks. - ALLERGIES Allergies/Adverse Reactions: Allergies Allergy/AdvReac Type Severity Reaction Status Date / Time celecoxib [From Celebrex] Allergy Mild Rash Verified 03/01/20 12:04 Sulfa (Sulfonamide Allergy Mild unknown Verified 03/01/20 12:04 Antibiotics) doxycycline Allergy Rash Verified 03/01/20 12:04 gabapentin [From Neurontin] Allergy Rash Verified 03/01/20 12:04 - MEDICATIONS Home Medications: Ambulatory Orders Medication Instructions Recorded Confirmed Aspirin [Aspirin EC] 81 mg PO DAILY 11/11/12 03/13/20 Ipratropium/Albuterol [Combivent 1 puffs INH QID PRN MDD 6 PUFFS 11/11/12 03/13/20 Respimat] Pregabalin [Lyrica] 75 mg PO BID 11/11/12 03/13/20 Tiotropium [place] [Spiriva] 2 puffs INH DAILY 11/11/12 03/13/20 metFORMIN [Glucophage] 1,000 mg PO BID 11/11/12 03/13/20 Finasteride [Proscar] 5 mg PO DAILY 03/01/20 03/13/20 Fluticasone/Salmeterol [Advair 1 puffs INH BID 03/01/20 03/13/20 250-50 Diskus] Ciprofloxacin [Cipro] 500 mg PO BID #56 tablet 03/05/20 03/13/20 Atorvastatin [Lipitor] 10 mg PO QPM 03/13/20 03/13/20 Fluticasone [Flonase] 2 spray RHYS DAILY 03/13/20 03/13/20 Montelukast Sodium 10 mg PO QPM 03/13/20 03/13/20 Sertraline HCl [Zoloft] 50 mg PO QPM 03/13/20 03/13/20 Levothyroxine [Synthroid] 75 mcg PO QDAC #30 tablet 03/14/20 Levothyroxine [Synthroid] 100 mcg PO QDAC #30 tablet 03/14/20 - PHYSICAL EXAM AT DISCHARGE General Appearance: positive: No acute distress, Alert Eyes Bilateral: positive: Normal inspection, Conjunctivae nml ENT: positive: ENT inspection nml Neck: positive: Nml inspection Respiratory: positive: No respiratory distress, Other (Diminished in the bases.). negative: Wheezes, Rales Cardiovascular: positive: Regular rate & rhythm, No murmur. negative: Tachycardia, Bradycardia, Systolic murmur Abdomen: positive: Non-tender, No distention. negative: Tenderness, Guarding, Rebound Skin: positive: No rash, Warm, Dry Extremities: positive: Full ROM, No pedal edema Neurologic/Psychiatric: positive: Oriented x3, Motor nml. negative: Disoriented to person, Disoriented to place, Disoriented to time - LABS Result Diagrams: 03/14/20 03:37 03/14/20 03:37 - FOLLOW UP Follow Up: He was asked to follow-up with his primary care provider within 1 week as well as urology. - TIME SPENT Time Spent in Discharge (Minutes): 35
[2020-03-15] MEDS ORDERED: LEVOTHYROXINE 100 MCG TABLET PO SCH (07:00)
[2020-03-15] MEDS ORDERED: LEVOTHYROXINE 75 MCG TABLET PO SCH (07:00)
== END 2020-03-14 10:45 | disposition home or self-care (01) | DRG 684 ==
LOC: EDUNIT# → ED 16:52 → MS2 18:16
PROVIDERS: ADMIT Internal Medicine; ATTEND Internal Medicine
DX: N17.9 Acute kidney failure, unspecified (principal); I95.1 Orthostatic hypotension; E86.0 Dehydration; E78.00 Pure hypercholesterolemia, unspecified; N41.9 Inflammatory disease of prostate, unspecified; E11.42 Type 2 diabetes mellitus with diabetic polyneuropathy; E11.9 Type 2 diabetes mellitus without complications; J44.9 Chronic obstructive pulmonary disease, unspecified; E78.5 Hyperlipidemia, unspecified; E03.9 Hypothyroidism, unspecified; I10 Essential (primary) hypertension; G47.30 Sleep apnea, unspecified; N40.0 Benign prostatic hyperplasia without lower urinary tract symptoms; Z79.82 Long term (current) use of aspirin; Z79.51 Long term (current) use of inhaled steroids; Z79.84 Long term (current) use of oral hypoglycemic drugs; Z79.899 Other long term (current) drug therapy
CPT/HCPCS: 36415; 80048; 80053; 81001; 83605; 83690; 84484; 85025; 87086; 93005; 96360; 96361; 99285; A6250; A9270

== ENCOUNTER → 2020-03-29 | Outpatient (CLI) | payer MEDICARE, OTHER ==
[2020-03-29 18:35] LABS: BASOPHILS # (AUTO) 0.1 10^3/uL (0.0-0.1); EOSINOPHILS # (AUTO) 0.7 10^3/uL (0.0-0.7); EOSINOPHILS % (AUTO) 9.6 %; LYMPHOCYTES # (AUTO) 1.5 10^3/uL (1.5-3.5); MEAN CORPUSCULAR HGB CONC 31.3 g/dL (32.0-36.0); MEAN CORPUSCULAR VOLUME 95.8 fL (80.0-94.0); MEAN PLATELET VOLUME 9.2 fL (7.4-11.4); MONOCYTES # (AUTO) 0.7 10^3/uL (0.0-1.0); MONOCYTES % (AUTO) 8.5 %; NEUTROPHILS # (AUTO) 4.7 10^3/uL (1.5-6.6); NEUTROPHILS % (AUTO) 61.4 %; PLT - PLATELET COUNT 261 10^3/uL (130-450); RED CELL DISTRIBUTION WIDTH 14.2 % (12.0-15.0); WHITE BLOOD COUNT 7.7 x10^3/uL (4.8-10.8)
[2020-03-29 18:58] LABS: ALBUMIN 3.9 g/dL (3.2-5.5); ALBUMIN/GLOBULIN RATIO 1.3 (1.0-2.2); BILIRUBIN,TOTAL 0.6 mg/dL (0.2-1.0); CREATININE 0.9 mg/dL (0.6-1.2); TOTAL PROTEIN 6.9 g/dL (6.7-8.2)
[2020-03-29 19:00] LABS: CALCIUM 9.3 mg/dL (8.5-10.3)
== END ==
LOC: LAB.WCP 08:00
PROVIDERS: ATTEND Family Medicine
DX: N17.9 Acute kidney failure, unspecified (principal); N42.9 Disorder of prostate, unspecified; E03.9 Hypothyroidism, unspecified
CPT/HCPCS: 36415; 80053; 81001; 84443; 85025; 87086

== ENCOUNTER 2020-04-14 08:00 | Outpatient (CLI) | payer MEDICARE, OTHER ==
[2020-04-14 20:30] LABS: BILIRUBIN,URINE NEGATIVE (NEGATIVE); GLUCOSE, URINE (UA) NEGATIVE (NEGATIVE); KETONES,URINE (UA) NEGATIVE (NEGATIVE); LEUKOCYTE ESTERASE, URINE TRACE (NEGATIVE); NITRITE,URINE NEGATIVE (NEGATIVE); OCCULT BLOOD,URINE TRACE-LYSE (NEGATIVE); PH,URINE 5.5 PH (5.0-7.5); PROTEIN,URINE NEGATIVE (NEGATIVE); UROBILINOGEN,URINE 0.2 (NORMAL) E.U./dL (NORMAL)
[2020-04-14 20:32] LABS: CLARITY,URINE CLEAR (CLEAR)
[2020-04-14 20:43] LABS: RBC,URINE 0-5 /HPF (0-5); SQUAMOUS EPITHELIAL CELL,UR NONE SEEN (<= Few)
[2020-04-14 20:44] LABS: BACTERIA,URINE Rare /HPF (None Seen)
== END 2020-04-14 23:59 | disposition home or self-care (01) ==
LOC: LAB.R 08:00
PROVIDERS: ATTEND Family Medicine
DX: N41.0 Acute prostatitis (principal)
CPT/HCPCS: 81001; 87086

== ENCOUNTER 2020-05-08 07:00 | Outpatient (CLI) | payer MEDICARE, OTHER | END 2020-05-08 23:59 | disposition home or self-care (01) | LOC: LAB.R 07:00 | PROVIDERS: ATTEND Family Medicine | DX: N42.9 Disorder of prostate, unspecified (principal) | CPT/HCPCS: 87086 ==

== ENCOUNTER 2020-05-24 08:50 | Outpatient (CLI) | payer MEDICARE, OTHER ==
[2020-05-24] MEDS ORDERED: AMINOPHYLLINE 500 MG/20 ML VIAL ONE (11:13)
[2020-05-24] MEDS ORDERED: REGADENOSON 0.4 MG/5 ML SYRINGE IVP ONE ×2 (11:13→11:54)
--- NOTE | 2020-05-24 12:41 | CARDIAC PROCEDURE NOTE ---
DATE OF SERVICE: 05/24/2020 Physician: Soco Martin MD, [facility] INDICATION: Elevated troponin. CARDIAC RISK FACTORS: Male gender, advanced age. Other risk factors are unknown. DESCRIPTION OF PROCEDURE: After signing informed consent, the patient underwent a Lexiscan pharmaceutical stress test with nuclear myocardial perfusion imaging. RESTING HEART RATE: 77. PEAK HEART RATE: 103. RESTING BLOOD PRESSURE: 128/84. PEAK BLOOD PRESSURE: 141/67. Lexiscan was infused per protocol. The patient had brief headache and nausea, no chest pain or shortness of breath. Oxygen saturation was 92-95% on room air throughout the test. RESTING EKG: Normal sinus rhythm, premature atrial contraction, poor R-wave progression V1 through V3. EKG AT PEAK: No new ST segment or T-wave changes. SUMMARY: 1. Abnormal resting EKG. 2. No ischemic changes developed by EKG criteria during this pharmaceutical stress. 3. Nuclear images showed a fixed perfusion defect at the LV apex, probably apical thinning, and another inferior wall reversible defect that resolved with prone imaging, therefore considered to be artifact. Normal LV systolic function. No reversible ischemia seen. IMPRESSION: Normal stress test. cc: Kai Navarro MD TD: 05/24/2020 12:03 [facility]
--- NOTE | 2020-05-26 13:20 | Nuclear Medicine Report ---
PROCEDURE: Rest and Lexiscan myocardial perfusion SPECT with gated imaging and ejection fraction INDICATIONS: ELEVATED TROPONIN RADIOPHARMACEUTICAL: 8.9 mCi Tc-99m Myoview IV at rest and 23.0 mCi Tc-99m Myoview IV at peak exerci se. [id number] was performed. TECHNIQUE: Radiopharmaceutical was injected at peak stress test, and also at rest. SPECT images wer e obtained. SPECT myocardial perfusion images were displayed in short axis, horizontal long axis, an d vertical long axis views. Gated images were reviewed using Auto[employer] software. COMPARISON: None available. FINDINGS: Raw data: There is good myocardial labeling by radiotracer. No significant motion artifacts. Left ventricle function: Gated images demonstrate normal left ventricle wall thickening. No segment al wall motion abnormality. No transient ischemic dilation (TID score 1.29; normal < 1.3). The left ventricle resting end-diastolic volume is normal. Left ventricle stress ejection fraction is >70%; n ormal values are above 45%. Myocardial perfusion: There is a moderate size, mild, fixed perfusion defect in the left ventricular apex, most likely secondary to apical thinning. There is mild reversible perfusion defect in the inf erior wall, which is resolved on prone imaging, consistent with diaphragmatic attenuation artifact. There is otherwise normal distribution of activity in the left and right ventricular myocardium. IMPRESSION: 1. Probably normal myocardial perfusion images. A moderate size, mild, fixed perfusion defect in the left ventricular apex is likely caused by apical thickening. No convincing perfusion defects to sugge st myocardial ischemia or infarct. 2. Normal left ventricular volume and systolic function. 3. Please correlate with stress EKG report. PQRS ATTESTATIONS: Measure 322 - Is this imaging test primarily performed on a low-risk surgery patient for preoperative evaluation within 30 days preceding their low-risk non-cardiac surgery? Low-risk surgery is defined as cardiac or myocardial infarction less than 1%, including (but not limited to) endoscopic pr ocedures, superficial procedures, cataract surgery, and excisional breast surgery: Answer: No Measure 323 - Is this imaging test performed primarily for the monitoring of an asymptomatic patient who had percutaneous coronary intervention on the visit date or within 2 years of the visit date? An swer: No Measure 324 - Is this imaging test performed primarily for the initial detection and risk assessment on an asymptomatic, low coronary heart disease patient? Low CHD risk definition = clinicians should consider the maximum number of available patient factors used to estimate risk based on [place] (A TP III criteria), typically age, gender, diabetes, smoking status, and use of blood pressure medicati on, and integrate age appropriate estimates for missing elements, such as LDL or standard blood press ure. Answer: No Reviewed by: Sheryl Min MD on 05/26/2020 1:19 PM PST Approved by: Sheryl Min MD on 05/26/2020 1:19 PM PST Station ID: [id number]
== END 2020-05-24 08:51 | disposition home or self-care (01) ==
LOC: DI 08:50
PROVIDERS: ATTEND Family Medicine
DX: R79.89 Other specified abnormal findings of blood chemistry (principal); R94.31 Abnormal electrocardiogram [ECG] [EKG]
CPT/HCPCS: 78452; 93017; A9500; J2785

== ENCOUNTER 2020-08-15 11:36 | Outpatient (CLI) | payer MEDICARE, OTHER ==
--- NOTE | 2020-08-15 15:26 | XRAY Report ---
PROCEDURE: Hand 3 View LT INDICATIONS: LEFT HAND SKIN MASS TECHNIQUE: 3 views of the hand(s) acquired. COMPARISON: None FINDINGS: Bones: No fractures or dislocations. No suspicious bony lesions. There is a prominent osteophyte a t the second DIP joint. Soft tissues: No suspicious soft tissue calcifications. IMPRESSION: 1. Prominent second DIP joint osteophyte. 2. No definitive soft tissue mass is identified. If remains of concern, MRI with without contrast is recommended for further evaluation. Reviewed by: Ena Astorga MD on 08/15/2020 3:25 PM PST Approved by: Ena Astorga MD on 08/15/2020 3:25 PM PST Station ID: [id number]
== END 2020-08-15 23:59 | disposition home or self-care (01) ==
LOC: DI.WCP 11:36
PROVIDERS: ATTEND Family Medicine
DX: M25.742 Osteophyte, left hand (principal)

== ENCOUNTER 2021-02-20 13:10 | Emergency (ER) | payer MEDICARE, OTHER ==
--- NOTE | 2021-02-20 14:08 | ED Physician Documentation ---
PD HPI DYSPNEA - Stated complaint Stated Complaint: SOA - Chief complaint Chief Complaint: Resp - History obtained from History obtained from: Patient - History of Present Illness Timing - onset: How many days ago (5-6) Timing - details: Gradual onset, Still present Inciting event(s): No: URI (does not have fever nor notable cough.) Improved by: O2 (has used his home oxygen PRN this past week.), Inhaler/neb, Rest Associated symptoms: Wheezing. No: Fever, Cough, Chest pain / discomfort, Palpitations, Bilateral edema Similar symptoms before: Diagnosis (COPD in the past. no History of CHF nor heart problems.) Recently seen: Clinic (seen at [facility] few days ago with this. Sats noted low at 83% walking in, improved to 90% with rest. Provider wanted pt to go to ER. He did not want to. Asked for Rx for meds, but provider had him sign out AMA. No Rx given (should have attempted treatment even with the AMA, in my opinion).), Other (had COVID vaccine end of July, with 2nd dose early Aug.) Review of Systems Constitutional: denies: Fever, Chills Nose: reports: Congestion. denies: Rhinorrhea / runny nose Throat: denies: Sore throat Cardiac: denies: Chest pain / pressure, Palpitations, Pedal edema, Calf pain Respiratory: reports: Dyspnea, Wheezing. denies: Cough GI: denies: Abdominal Pain, Nausea, Vomiting, Diarrhea, Bloody / black stool : reports: Frequency, Incontinent (he states he has had feeling of urinary urgency and will have incontinence when stands up or lifts. Cramping pain in bladder area with that.). denies: Hematuria, Discharge Musculoskeletal: denies: Neck pain, Back pain Neurologic: reports: Generalized weakness. denies: Focal weakness, Numbness, Near syncope PD PAST MEDICAL HISTORY - Past Medical History Past Medical History: Yes Cardiovascular: Hypertension, High cholesterol Respiratory: Asthma, COPD (not on oxygen usually, but does have concentrator for PRN use. He has been using 2 lpm NC at times this past week. ), Sleep apnea, CPAP use (with oxygen at night) Neuro: None Endocrine/Autoimmune: Type 2 diabetes GI: Diverticulitis : Other HEENT: Other Psych: Depression Musculoskeletal: Osteoarthritis, Other Derm: None - Past Surgical History Past Surgical History: Yes General: Colonoscopy, EGD Ortho: Other HEENT: Tonsil/Adenoidectomy - Present Medications Home Medications: Ambulatory Orders Medication Instructions Recorded Confirmed Aspirin [Aspirin EC] 81 mg PO DAILY 11/11/12 02/20/21 Ipratropium/Albuterol [Combivent 1 puffs INH QID PRN MDD 6 PUFFS 11/11/12 02/20/21 Respimat] Tiotropium [place] [Spiriva] 2 puffs INH DAILY 11/11/12 02/20/21 metFORMIN [Glucophage] 1,000 mg PO BID 11/11/12 02/20/21 Finasteride [Proscar] 5 mg PO DAILY 03/01/20 02/20/21 Fluticasone/Salmeterol [Advair 1 puffs INH BID 03/01/20 02/20/21 250-50 Diskus] Ciprofloxacin [Cipro] 500 mg PO BID #56 tablet 03/05/20 03/13/20 Atorvastatin [Lipitor] 10 mg PO QPM 03/13/20 02/20/21 Fluticasone [Flonase] 2 spray RHYS DAILY 03/13/20 02/20/21 Montelukast Sodium 10 mg PO QPM 03/13/20 02/20/21 Sertraline HCl [Zoloft] 50 mg PO QPM 03/13/20 02/20/21 Levothyroxine [Synthroid] 75 mcg PO QDAC #30 tablet 03/14/20 02/20/21 Albuterol 2.5 mg INH Q4H PRN #30 neb 02/20/21 Amoxicillin 500 mg PO TID #18 cap 02/20/21 Nebulizer and Compressor 1 each MC QID #1 each 02/20/21 [Compressor Nebulizer System] Oxybutynin [Ditropan] 5 mg PO BID #20 tablet 02/20/21 dexAMETHasone [Decadron] 4 mg PO DAILY #5 tablet 02/20/21 - Allergies Allergies/Adverse Reactions: Allergies Allergy/AdvReac Type Severity Reaction Status Date / Time celecoxib [From Celebrex] Allergy Mild Rash Verified 02/20/21 13:13 Sulfa (Sulfonamide Allergy Mild unknown Verified 02/20/21 13:13 Antibiotics) doxycycline Allergy Rash Verified 02/20/21 13:13 gabapentin [From Neurontin] Allergy Rash Verified 02/20/21 13:13 - Social History Does the pt smoke?: No Smoking Status: Never smoker Does the pt drink ETOH?: Yes Does the pt have substance abuse?: No - Immunizations Immunizations are current?: Yes - POLST Patient has POLST: No POLST Status: Full Code PD ED PE NORMAL - Vitals Vital signs reviewed: Yes (93% RA sats but down to 88-90% with walking to b athroom. ) - General General: Alert and oriented X 3, No acute distress, Well developed/nourished - HEENT HEENT: Pharynx benign - Neck Neck: Supple, no meningeal sign, No adenopathy - Cardiac Cardiac: RRR, No murmur - Respiratory Respiratory: No respiratory distress (prolong exp phase, but no tachycpnea and able to talk in sentences. ). No: Clear bilaterally (no coarse sounds; has some scattered wheezes and prolonged exp phase. ) - Abdomen Abdomen: Soft, Non tender - Derm Derm: Normal color, Warm and dry - Extremities Extremities: No edema, No calf tenderness / cord - Neuro Neuro: Alert and oriented X 3, No motor deficit, Normal speech Results - Vitals Vitals: Vital Signs - 24 hr 02/20/21 02/20/21 02/20/21 13:13 15:30 15:31 Temperature 36.5 C 37.2 C Heart Rate 95 78 86 Respiratory 24 16 12 Rate Blood Pressure 143/77 H 132/80 H O2 Saturation 93 93 Oxygen O2 Source Room air Oxygen Flow Rate 3 - Labs Labs: Laboratory Tests 02/20/21 02/20/21 02/20/21 15:00 15:04 15:04 WBC 10.4 RBC 4.55 L Hgb 14.1 Hct 44.0 MCV 96.7 H MCH 31.0 MCHC 32.0 RDW 13.2 Plt Count 298 MPV 8.6 Neut # (Auto) 7.2 H Lymph # (Auto) 1.4 L [place] # (Auto) 1.2 H Eos # (Auto) 0.4 Baso # (Auto) 0.1 Absolute Nucleated RBC 0.00 Nucleated RBC % 0.0 Sodium 139 Potassium 4.2 Chloride 100 L Carbon Dioxide 28 Anion Gap 11.0 BUN 15 Creatinine 0.8 Estimated GFR (MDRD) 94 Glucose 114 H Calcium 9.6 Magnesium 1.8 Total Bilirubin 0.7 AST 20 ALT 30 Alkaline Phosphatase 65 Troponin I High Sens B-Natriuretic Peptide Total Protein 7.5 Albumin 4.4 Globulin 3.1 Albumin/Globulin Ratio 1.4 Lipase 29 Urine Color YELLOW Urine Clarity CLEAR Urine pH 5.0 Ur Specific [place] >=1.030 H Urine Protein NEGATIVE Urine Glucose (UA) NEGATIVE Urine Ketones NEGATIVE Urine Occult Blood NEGATIVE Urine Nitrite NEGATIVE Urine Bilirubin NEGATIVE Urine Urobilinogen 0.2 (NORMAL) Ur Leukocyte Esterase NEGATIVE Ur Microscopic Review NOT INDICATED Urine Culture Comments NOT INDICATED 02/20/21 02/20/21 15:04 15:04 WBC RBC Hgb Hct MCV MCH MCHC RDW Plt Count MPV Neut # (Auto) Lymph # (Auto) [place] # (Auto) Eos # (Auto) Baso # (Auto) Absolute Nucleated RBC Nucleated RBC % Sodium Potassium Chloride Carbon Dioxide Anion Gap BUN Creatinine Estimated GFR (MDRD) Glucose Calcium Magnesium Total Bilirubin AST ALT Alkaline Phosphatase Troponin I High Sens 4.5 B-Natriuretic Peptide 21 Total Protein Albumin Globulin Albumin/Globulin Ratio Lipase Urine Color Urine Clarity Urine pH Ur Specific [place] Urine Protein Urine Glucose (UA) Urine Ketones Urine Occult Blood Urine Nitrite Urine Bilirubin Urine Urobilinogen Ur Leukocyte Esterase Ur Microscopic Review Urine Culture Comments - Rads (name of study) chest xray Radiology: Prelim report reviewed (COPD without infiltrates. ), See rad report PD MEDICAL DECISION MAKING - ED course Complexity details: reviewed results (CXR no infiltrates. ), re-evaluated patient (sats are hagning borderline at 90-92% RA, but he does have ability to be on oxygen 2 lpm regular at home, so he may need to do this short term, but would expect improvement over next couple days. ), considered differential (does not seem CHF. Presume COPD flare. Has not had cough/fever. No edema. ), d/w patient ED course: Urinary info showed post void residual of 15 ml, so he is emptying, but has feeling of urgency and pains. UA does not show infection. Presume bladder spasms. Departure - Departure Disposition: 01 Home, Self Care Clinical Impression: Urge incontinence of urine, Acute exacerbation of COPD with asthma Dyspnea Qualifiers: Dyspnea type: dyspnea on exertion Qualified Code(s): R06.00 - Dyspnea, unspecified Condition: Stable Record reviewed to determine appropriate education?: Yes Instructions: ED COPD Flare Follow-Up: Marquez Mendoza MD [Primary Care Provider] - [facility] [Provider Group] Prescriptions: Albuterol 2.5 mg INH Q4H PRN #30 neb PRN Reason: Wheezing Amoxicillin 500 mg PO TID #18 cap Nebulizer and Compressor [Compressor Nebulizer System] 1 each MC QID #1 each dexAMETHasone [Decadron] 4 mg PO DAILY #5 tablet Oxybutynin [Ditropan] 5 mg PO BID #20 tablet Comments: Continue your usual medications and inhalers. Add the albuterol nebulizer 4 times a day if needed for trouble breathing. Supplement your oxygen at home with 1 to 2 L if needed in the short-term. I would anticipate improvement over the next couple of days with adding steroids and amoxicillin antibiotic. For your urge incontinence, you could add oxybutynin which is a antispasmodic for the bladder and see if that helps. I would suggest following up with your primary care and referral to urology for further evaluation of that. Discharge Date/Time: 02/20/21 16:48
[2021-02-20] MEDS ORDERED: IPRATROPIUM/ALBUTEROL 3 ML NEB INH STA (14:50)
[2021-02-20] MEDS ORDERED: CHERRY SYRUP 10 ML UDC PO ONE (14:51)
[2021-02-20] MEDS ORDERED: DEXAMETHASONE 10 MG/ML VIAL PO STA (14:51)
[2021-02-20 15:10] LABS: BASOPHILS # (AUTO) 0.1 10^3/uL (0.0-0.1); BASOPHILS % (AUTO) 0.5 %; EOSINOPHILS # (AUTO) 0.4 10^3/uL (0.0-0.7); HGB - HEMOGLOBIN 14.1 g/dL (14.0-18.0); LYMPHOCYTES # (AUTO) 1.4 10^3/uL (1.5-3.5); MEAN CORPUSCULAR VOLUME 96.7 fL (80.0-94.0); MEAN PLATELET VOLUME 8.6 fL (7.4-11.4); MONOCYTES # (AUTO) 1.2 10^3/uL (0.0-1.0); NEUTROPHILS # (AUTO) 7.2 10^3/uL (1.5-6.6); NEUTROPHILS % (AUTO) 69.7 %; PLT - PLATELET COUNT 298 10^3/uL (130-450); RED BLOOD COUNT 4.55 10^6/uL (4.70-6.10); RED CELL DISTRIBUTION WIDTH 13.2 % (12.0-15.0); WHITE BLOOD COUNT 10.4 x10^3/uL (4.8-10.8)
[2021-02-20 15:16] LABS: BILIRUBIN,URINE NEGATIVE (NEGATIVE); GLUCOSE, URINE (UA) NEGATIVE (NEGATIVE); KETONES,URINE (UA) NEGATIVE (NEGATIVE); LEUKOCYTE ESTERASE, URINE NEGATIVE (NEGATIVE); NITRITE,URINE NEGATIVE (NEGATIVE); OCCULT BLOOD,URINE NEGATIVE (NEGATIVE); PROTEIN,URINE NEGATIVE (NEGATIVE); UROBILINOGEN,URINE 0.2 (NORMAL) E.U./dL (NORMAL)
[2021-02-20 15:17] LABS: CLARITY,URINE CLEAR (CLEAR)
[2021-02-20 15:30] LABS: ALBUMIN 4.4 g/dL (3.2-5.5); ALBUMIN/GLOBULIN RATIO 1.4 (1.0-2.2); BILIRUBIN,TOTAL 0.7 mg/dL (0.2-1.0); CALCIUM 9.6 mg/dL (8.5-10.3); CREATININE 0.8 mg/dL (0.6-1.2); MAGNESIUM 1.8 mg/dL (1.7-2.8); POTASSIUM 4.2 mmol/L (3.5-5.0); TOTAL PROTEIN 7.5 g/dL (6.7-8.2)
[2021-02-20 15:32] VITALS: BP 132/80
--- NOTE | 2021-02-20 15:50 | XRAY Report ---
PROCEDURE: Chest 1 View X-Ray INDICATIONS: chest pain TECHNIQUE: One view of the chest was acquired. COMPARISON: 03/02/2020 FINDINGS: Surgical changes and devices: None. Lungs and pleura: There is hyperinflation of the lungs with flattening of the hemidiaphragms compati ble with COPD redemonstrated. No focal consolidation. A few linear opacities in the lung bases likely represent atelectasis. No pleural effusions or pneumothorax. Mediastinum: Mediastinal contours appear normal. Heart size is normal. Bones and chest wall: No suspicious bony lesions. Overlying soft tissues appear unremarkable. IMPRESSION: 1. Findings compatible with COPD redemonstrated without acute consolidation. 2. Probable mild atelectasis in the lung bases. Reviewed by: Jasiel Oliver MD on 02/20/2021 3:49 PM PDT Approved by: Jasiel Oliver MD on 02/20/2021 3:49 PM PDT Station ID: [id number]
== END 2021-02-20 16:48 | disposition home or self-care (01) ==
LOC: ED 13:10
DX: J44.1 Chronic obstructive pulmonary disease with (acute) exacerbation (principal); N39.41 Urge incontinence; I10 Essential (primary) hypertension; E11.9 Type 2 diabetes mellitus without complications; Z79.84 Long term (current) use of oral hypoglycemic drugs; Z79.82 Long term (current) use of aspirin
CPT/HCPCS: 36415; 71045; 80053; 81003; 83690; 83735; 83880; 84484; 85025; 94640; 99284; A9270; 81001; 87086

== ENCOUNTER 2021-03-05 10:14 | Emergency (ER) | payer MEDICARE, OTHER ==
--- NOTE | 2021-03-05 11:00 | XRAY Report ---
PROCEDURE: Chest 1 View X-Ray INDICATIONS: Chest pain TECHNIQUE: One view of the chest was acquired. COMPARISON: 02/20/2021 FINDINGS: Surgical changes and devices: None. Lungs and pleura: No pleural effusions or pneumothorax. Lungs are clear. Mediastinum: Mediastinal contours appear normal. Heart size is normal. Bones and chest wall: No suspicious bony lesions. Overlying soft tissues appear unremarkable. IMPRESSION: No acute cardiopulmonary process demonstrated radiographically. Reviewed by: Bhavesh Alegre MD on 03/05/2021 10:59 AM PDT Approved by: Bhavesh Alegre MD on 03/05/2021 10:59 AM PDT Station ID: [id number]
[2021-03-05 11:02] LABS: BASOPHILS % (AUTO) 0.4 %; EOSINOPHILS # (AUTO) 0.1 10^3/uL (0.0-0.7); EOSINOPHILS % (AUTO) 1.5 %; HGB - HEMOGLOBIN 14.4 g/dL (14.0-18.0); LYMPHOCYTES # (AUTO) 0.9 10^3/uL (1.5-3.5); LYMPHOCYTES % (AUTO) 10.2 %; MEAN CORPUSCULAR HEMOGLOBIN 31.7 pg (27.0-31.0); MEAN CORPUSCULAR HGB CONC 33.5 g/dL (32.0-36.0); MEAN CORPUSCULAR VOLUME 94.7 fL (80.0-94.0); MEAN PLATELET VOLUME 8.8 fL (7.4-11.4); MONOCYTES % (AUTO) 11.1 %; NEUTROPHILS # (AUTO) 6.9 10^3/uL (1.5-6.6); PLT - PLATELET COUNT 222 10^3/uL (130-450); RED BLOOD COUNT 4.54 10^6/uL (4.70-6.10); RED CELL DISTRIBUTION WIDTH 12.5 % (12.0-15.0); WHITE BLOOD COUNT 9.1 x10^3/uL (4.8-10.8)
[2021-03-05 11:17] LABS: ALBUMIN 4.2 g/dL (3.2-5.5); ALBUMIN/GLOBULIN RATIO 1.3 (1.0-2.2); BILIRUBIN,TOTAL 0.8 mg/dL (0.2-1.0); CALCIUM 9.4 mg/dL (8.5-10.3); CREATININE 0.9 mg/dL (0.6-1.2); POTASSIUM 3.9 mmol/L (3.5-5.0); TOTAL PROTEIN 7.4 g/dL (6.7-8.2)
[2021-03-05] MEDS ORDERED: IOPAMIDOL-300 50 ML VIAL ONE (12:02)
--- NOTE | 2021-03-05 13:10 | CT Report ---
PROCEDURE: ANGIO CHEST W/WO INDICATIONS: dyspnea, low oxygen for 3 weeks CONTRAST: TECHNIQUE: After the administration of intravenous contrast, images were acquired from the pulmonary apices to t he posterior costophrenic angles. 3-dimensional maximum intensity projection (MIP) coronal and sagit mariaa reformats were then acquired through the thorax. For radiation dose reduction, the following was used: automated exposure control, adjustment of mA and/or kV according to patient size. COMPARISON: Single view chest same day reviewed. FINDINGS: Image quality: Excellent. Pulmonary arteries: Pulmonary arteries are normal in size, and demonstrate no intraluminal filling d efects to suggest central pulmonary embolism. Lungs and pleura: Lungs are mildly abnormal with a mild alveolar edema pattern but without patchy pn eumonia. No pleural effusions or pneumothorax. Central and peripheral airways are patent. Mediastinum: Heart size is normal, without pericardial effusion. No mediastinal or hilar adenopathy . Thoracic aorta is normal in caliber and enhancement. Esophagus is normal in caliber, without hiat al hernia. Bones and chest wall: No suspicious bony lesions. Ribs and thoracic spine appear intact throughout. No axillary or supraclavicular adenopathy. The thyroid is normal in size and there are no incident al findings. Abdomen: Visualized upper abdominal solid organs appear normal in the early arterial phase of enhanc ement. IMPRESSION: Mild alveolar edema pattern best seen at the mid and upper lungs, which may reflect a chronic interst itial prominence but also could be seen in the setting of early manifestation of acute CHF. The absen ce of a patchy pneumonitis pattern would argue against atypical/viral pneumonia. No pulmonary embolus seen. No cardiomegaly present. CLINICAL RECOMMENDATION STATEMENTS: In patients <35 years with an ITN detected on CT, MRI, or extrathyroidal ultrasound, the Committee re commends further evaluation with dedicated thyroid ultrasound if the nodule is ?1 cm and has no suspi cious imaging features, and if the patient has normal life expectancy. In patients ?35 years with an ITN detected on CT, MRI, or extrathyroidal ultrasound, the Committee re commends further evaluation with dedicated thyroid ultrasound if the nodule is ?1.5 cm and has no rolando picious imaging features, and if the patient has normal life expectancy. (ACR, 2014) Reviewed by: Sandip Kat MD on 03/05/2021 1:09 PM PDT Approved by: Sandip Kat MD on 03/05/2021 1:09 PM PDT Station ID: [id number]
[2021-03-05] MEDS ORDERED: IOPAMIDOL-300 50 ML VIAL IVP ONE (13:13)
[2021-03-05] MEDS ORDERED: CHERRY SYRUP 10 ML UDC PO ONE (13:40)
[2021-03-05] MEDS ORDERED: DEXAMETHASONE 10 MG/ML VIAL PO STA (13:40)
--- NOTE | 2021-03-05 13:44 | ED Physician Documentation ---
PD HPI DYSPNEA - Stated complaint Stated Complaint: LOW OXYGEN/LOW BP,INTERMITENT CP - Chief complaint Chief Complaint: Cardiac - History obtained from History obtained from: Patient, Family - History of Present Illness Timing - onset: How many weeks ago (3-4 weeks of worse dyspnea and noted hypoxia with light activity. Had had oxygen with CPAP at night with day use PRN. Now using oxygen regularly for keeping sats above 92%.) Timing - onset during: Light activity Timing - duration: Weeks Timing - details: Gradual onset, Still present, Waxing and waning Inciting event(s): No: URI, Allergic rxn/anaphylaxis, Immobilization/travel Improved by: O2, Rest. No: Sitting up Worsened by: Exertion, Coughing. No: Laying flat Associated symptoms: Cough, Wheezing. No: Fever, Hemoptysis, Chest pain / discomfort, Bilateral edema Similar symptoms before: Diagnosis (COPD, no history of CHF.) Recently seen: Clinic (seen by PMD who wanted to get ECHO and labs on patient. He tried to schedule the ECHO but not until Mar 30. Having worse dyspnea today so here to ER.), Emergency Dept (a week ago for similar and tried on steroids and Amox abx. Mild improvement only and not consistent, per patient.) Review of Systems Constitutional: reports: Myalgias. denies: Fever, Chills Nose: denies: Rhinorrhea / runny nose, Congestion Throat: denies: Sore throat Cardiac: denies: Chest pain / pressure, Palpitations Respiratory: reports: Dyspnea, Cough (productive of white to yellow sputum.), Wheezing. denies: Hemoptysis GI: denies: Abdominal Pain, Nausea, Vomiting, Diarrhea, Bloody / black stool Musculoskeletal: denies: Neck pain, Back pain, Extremity swelling Neurologic: reports: Generalized weakness. denies: Focal weakness, Numbness, Near syncope PD PAST MEDICAL HISTORY - Past Medical History Cardiovascular: Hypertension, High cholesterol Respiratory: Asthma, COPD (not on oxygen usually, but does have concentrator for PRN use. He has been using 2 lpm NC at times this past week. ), Sleep apnea, CPAP use (with oxygen at night) Neuro: None Endocrine/Autoimmune: Type 2 diabetes GI: Diverticulitis : Other HEENT: Other Psych: Depression Musculoskeletal: Osteoarthritis, Other Derm: None - Past Surgical History Past Surgical History: Yes General: Colonoscopy, EGD Ortho: Other HEENT: Tonsil/Adenoidectomy - Present Medications Home Medications: Ambulatory Orders Medication Instructions Recorded Confirmed Aspirin [Aspirin EC] 81 mg PO DAILY 11/11/12 02/20/21 Ipratropium/Albuterol [Combivent 1 puffs INH QID PRN MDD 6 PUFFS 11/11/12 02/20/21 Respimat] Tiotropium [place] [Spiriva] 2 puffs INH DAILY 11/11/12 02/20/21 metFORMIN [Glucophage] 1,000 mg PO BID 11/11/12 02/20/21 Finasteride [Proscar] 5 mg PO DAILY 03/01/20 02/20/21 Fluticasone/Salmeterol [Advair 1 puffs INH BID 03/01/20 02/20/21 250-50 Diskus] Ciprofloxacin [Cipro] 500 mg PO BID #56 tablet 03/05/20 03/13/20 Atorvastatin [Lipitor] 10 mg PO QPM 03/13/20 02/20/21 Fluticasone [Flonase] 2 spray RHYS DAILY 03/13/20 02/20/21 Montelukast Sodium 10 mg PO QPM 03/13/20 02/20/21 Sertraline HCl [Zoloft] 50 mg PO QPM 03/13/20 02/20/21 Levothyroxine [Synthroid] 75 mcg PO QDAC #30 tablet 03/14/20 02/20/21 Albuterol 2.5 mg INH Q4H PRN #30 neb 02/20/21 Amoxicillin 500 mg PO TID #18 cap 02/20/21 Nebulizer and Compressor 1 each MC QID #1 each 02/20/21 [Compressor Nebulizer System] Oxybutynin [Ditropan] 5 mg PO BID #20 tablet 02/20/21 dexAMETHasone [Decadron] 4 mg PO DAILY #5 tablet 02/20/21 cefUROXime axetiL [Ceftin] 250 mg PO Q12H #12 tablet 03/05/21 dexAMETHasone [Decadron] 4 mg PO DAILY #7 tablet 03/05/21 - Allergies Allergies/Adverse Reactions: Allergies Allergy/AdvReac Type Severity Reaction Status Date / Time celecoxib [From Celebrex] Allergy Mild Rash Verified 08/23/21 10:34 Sulfa (Sulfonamide Allergy Mild unknown Verified 03/05/21 10:34 Antibiotics) doxycycline Allergy Rash Verified 03/05/21 10:34 gabapentin [From Neurontin] Allergy Rash Verified 03/05/21 10:34 - Social History Does the pt smoke?: No Smoking Status: Never smoker Does the pt drink ETOH?: Yes Does the pt have substance abuse?: No - Immunizations Immunizations are current?: Yes - POLST Patient has POLST: No POLST Status: Full Code PD ED PE NORMAL - Vitals Vital signs reviewed: Yes - General General: Alert and oriented X 3, No acute distress, Well developed/nourished - HEENT HEENT: Pharynx benign - Neck Neck: Supple, no meningeal sign, No adenopathy - Cardiac Cardiac: RRR, No murmur - Respiratory Respiratory: Clear bilaterally - Abdomen Abdomen: Soft, Non tender - Derm Derm: Normal color, Warm and dry - Extremities Extremities: No deformity, No tenderness to palpate, No edema, No calf tenderness / cord - Neuro Neuro: Alert and oriented X 3, No motor deficit, Normal speech Results - Vitals Vitals: Oxygen O2 Source Room air - EKG (time done) 10:44 Rate: Rate (enter#) (72) Rhythm: NSR (with atrail PAC bigeminy. ) Alpha: Normal Intervals: Normal UT QRS: Normal Ischemia: Normal ST segments. No: ST elevation c/w ischemia, ST depression - Labs Labs: Laboratory Tests 03/05/21 03/05/21 03/05/21 10:55 10:55 10:55 WBC 9.1 RBC 4.54 L Hgb 14.4 Hct 43.0 MCV 94.7 H MCH 31.7 H MCHC 33.5 RDW 12.5 Plt Count 222 MPV 8.8 Neut # (Auto) 6.9 H Lymph # (Auto) 0.9 L [place] # (Auto) 1.0 Eos # (Auto) 0.1 Baso # (Auto) 0.0 Absolute Nucleated RBC 0.00 Nucleated RBC % 0.0 D-Dimer Sodium 138 Potassium 3.9 Chloride 97 L Carbon Dioxide 29 Anion Gap 12.0 BUN 22 H Creatinine 0.9 Estimated GFR (MDRD) 82 L Glucose 172 H Calcium 9.4 Magnesium Total Bilirubin 0.8 AST 22 ALT 32 Alkaline Phosphatase 62 Troponin I High Sens 4.9 B-Natriuretic Peptide Total Protein 7.4 Albumin 4.2 Globulin 3.2 Albumin/Globulin Ratio 1.3 Lipase 29 03/05/21 03/05/21 03/05/21 11:00 11:00 11:00 WBC RBC Hgb Hct MCV MCH MCHC RDW Plt Count MPV Neut # (Auto) Lymph # (Auto) [place] # (Auto) Eos # (Auto) Baso # (Auto) Absolute Nucleated RBC Nucleated RBC % D-Dimer < 200.0 L Sodium Potassium Chloride Carbon Dioxide Anion Gap BUN Creatinine Estimated GFR (MDRD) Glucose Calcium Magnesium 1.7 Total Bilirubin AST ALT Alkaline Phosphatase Troponin I High Sens B-Natriuretic Peptide 20 Total Protein Albumin Globulin Albumin/Globulin Ratio Lipase - Rads (name of study) chest xray Radiology: Prelim report reviewed (no acute process), See rad report ECHO Radiology: Prelim report reviewed (symmetric wall movement. Some right ventricular hypertrophy. EF 60%. ), See rad report chest CT-A Radiology: Prelim report reviewed (no PEs, no pneumonia.), See rad report PD MEDICAL DECISION MAKING - ED course Complexity details: reviewed results, re-evaluated patient (no other process identified. So still COPD appearance. ), considered differential (having progressive dyspnea. Has C but consider also CHF, pneumonitis, pulmonary HTN, PEs. Can get testing. ), d/w patient Departure - Departure Disposition: 01 Home, Self Care Clinical Impression: COPD (chronic obstructive pulmonary disease) Qualifiers: COPD type: unspecified COPD Qualified Code(s): J44.9 - Chronic obstructive pulmonary disease, unspecified Dyspnea Qualifiers: Dyspnea type: dyspnea on exertion Qualified Code(s): R06.00 - Dyspnea, unspecified Condition: Stable Record reviewed to determine appropriate education?: Yes Instructions: ED Dyspnea Shortness of Breath Follow-Up: Marquez Menodza MD [Primary Care Provider] - Prescriptions: cefUROXime axetiL [Ceftin] 250 mg PO Q12H #12 tablet dexAMETHasone [Decadron] 4 mg PO DAILY #7 tablet Comments: Your blood tests are normal appearing here with normal blood count again. Also normal markers for heart attack or heart failure so no signs of those. Your echocardiogram showed some mild valve murmur insufficiencies but not significant. The overall heart function (ejection fraction) is normal. Your CT of the chest did not show any signs of local pneumonia, blood clots, collapsed lung or other obvious process. There was some inflammatory changes consistent with likely COPD. At this point have you continue your oxygen. We can do another course of the oral steroids and a different antibiotic for potential bronchitis inflammation or infection. Continue your nebulizer 4 times daily for the next week. Follow-up with your primary care tomorrow as planned. They may consider referring you to a lung specialist perhaps for further evaluation. Discharge Date/Time: 03/05/21 14:17
[2021-03-05 14:19] VITALS: BP 130/88
== END 2021-03-05 14:17 | disposition home or self-care (01) ==
LOC: ED 10:14
DX: J44.9 Chronic obstructive pulmonary disease, unspecified (principal)
CPT/HCPCS: 36415; 71045; 71275; 80053; 83690; 83735; 83880; 84484; 85025; 85379; 93005; 93306; 99283; 99284; A9270; Q9967

== ENCOUNTER 2021-03-14 08:00 | Outpatient (CLI) | payer MEDICARE, OTHER ==
[2021-03-14 17:55] LABS: HCT - HEMATOCRIT 44.1 % (42.0-52.0); HGB - HEMOGLOBIN 13.9 g/dL (14.0-18.0); MEAN CORPUSCULAR HEMOGLOBIN 31.2 pg (27.0-31.0); MEAN CORPUSCULAR HGB CONC 31.5 g/dL (32.0-36.0); MEAN CORPUSCULAR VOLUME 98.9 fL (80.0-94.0); MEAN PLATELET VOLUME 9.3 fL (7.4-11.4); RED BLOOD COUNT 4.46 10^6/uL (4.70-6.10); RED CELL DISTRIBUTION WIDTH 13.1 % (12.0-15.0); WHITE BLOOD COUNT 11.1 x10^3/uL (4.8-10.8)
[2021-03-14 18:12] LABS: AMYLASE 46 U/L (28-100); LIPASE 32 U/L (22-51)
[2021-03-14 18:13] LABS: BILIRUBIN,URINE NEGATIVE (NEGATIVE); GLUCOSE, URINE (UA) NEGATIVE (NEGATIVE); KETONES,URINE (UA) NEGATIVE (NEGATIVE); LEUKOCYTE ESTERASE, URINE NEGATIVE (NEGATIVE); NITRITE,URINE NEGATIVE (NEGATIVE); OCCULT BLOOD,URINE NEGATIVE (NEGATIVE); PROTEIN,URINE NEGATIVE (NEGATIVE); UROBILINOGEN,URINE 0.2 (NORMAL) E.U./dL (NORMAL)
[2021-03-14 18:16] LABS: CALCIUM 9.3 mg/dL (8.5-10.3); CREATININE 0.9 mg/dL (0.6-1.2); POTASSIUM 3.9 mmol/L (3.5-5.0)
[2021-03-14 18:21] LABS: AMORPHOUS SEDIMENT,UR Marked /LPF; BACTERIA,URINE Many /HPF (None Seen); CLARITY,URINE CLEAR (CLEAR); RBC,URINE 0-5 /HPF (0-5); SQUAMOUS EPITHELIAL CELL,UR FEW Squamous (<= Few); WBC,URINE 0-3 /HPF (0-3)
[2021-03-14 18:28] LABS: THYROID STIMULATING HORMONE 5.73 uIU/mL (0.34-5.60)
[2021-03-14 18:30] LABS: FREE T3 2.53 pg/mL (2.5-3.9); FREE T4 (FREE THYROXINE) 0.87 ng/dL (0.58-1.64)
== END 2021-03-14 23:59 | disposition home or self-care (01) ==
LOC: LAB.WCP 08:00
PROVIDERS: ATTEND Family Medicine
DX: I10 Essential (primary) hypertension (principal); E03.9 Hypothyroidism, unspecified; R06.00 Dyspnea, unspecified; R79.81 Abnormal blood-gas level; G47.30 Sleep apnea, unspecified; N17.9 Acute kidney failure, unspecified
CPT/HCPCS: 36415; 80048; 81001; 82150; 83690; 83880; 84439; 84443; 84481; 85027; 87086

== ENCOUNTER 2021-04-03 08:00 | Outpatient (CLI) | payer MEDICARE, OTHER ==
[2021-04-03 18:24] LABS: BILIRUBIN,URINE NEGATIVE (NEGATIVE); GLUCOSE, URINE (UA) NEGATIVE (NEGATIVE); KETONES,URINE (UA) NEGATIVE (NEGATIVE); LEUKOCYTE ESTERASE, URINE NEGATIVE (NEGATIVE); NITRITE,URINE NEGATIVE (NEGATIVE); OCCULT BLOOD,URINE NEGATIVE (NEGATIVE); PH,URINE 5.5 PH (5.0-7.5); PROTEIN,URINE NEGATIVE (NEGATIVE); UROBILINOGEN,URINE 0.2 (NORMAL) E.U./dL (NORMAL)
[2021-04-03 18:41] LABS: BACTERIA,URINE None Seen /HPF (None Seen); CALCIUM 9.7 mg/dL (8.5-10.3); CLARITY,URINE CLEAR (CLEAR); CREATININE 0.7 mg/dL (0.6-1.2); POTASSIUM 4.5 mmol/L (3.5-5.0); RBC,URINE 0-5 /HPF (0-5); SQUAMOUS EPITHELIAL CELL,UR RARE Squamous (<= Few); WBC,URINE 0-3 /HPF (0-3)
[2021-04-03 18:49] LABS: CREATININE,URINE 16.8 mg/dL; MICROALBUM/CREATININE RATIO,UR 11.9 ug/mg (<30.0); MICROALBUMIN,URINE 0.2 mg/dL (0-300.0)
[2021-04-03 18:53] LABS: THYROID STIMULATING HORMONE 9.11 uIU/mL (0.34-5.60)
[2021-04-03 18:54] LABS: FREE T3 3.31 pg/mL (2.5-3.9)
[2021-04-03 18:55] LABS: FREE T4 (FREE THYROXINE) 0.84 ng/dL (0.58-1.64)
[2021-04-03 20:25] LABS: ESTIMATED AVERAGE GLUCOSE 140 mg/dL (70-100); HEMOGLOBIN A1c% 6.5 % (4.27-6.07)
== END 2021-04-03 23:59 | disposition home or self-care (01) ==
LOC: LAB.WCP 08:00
PROVIDERS: ATTEND Family Medicine
DX: N40.1 Benign prostatic hyperplasia with lower urinary tract symptoms (principal); R35.0 Frequency of micturition; I10 Essential (primary) hypertension; E11.9 Type 2 diabetes mellitus without complications; E03.9 Hypothyroidism, unspecified; N13.8 Other obstructive and reflux uropathy
CPT/HCPCS: 36415; 80048; 81001; 82043; 82570; 83036; 84439; 84443; 84481; G0103; 84153; 87086

== ENCOUNTER 2021-05-22 08:00 | Outpatient (CLI) | payer MEDICARE, OTHER ==
[2021-05-22 17:58] LABS: BASOPHILS # (AUTO) 0.1 10^3/uL (0.0-0.1); BASOPHILS % (AUTO) 0.7 %; EOSINOPHILS # (AUTO) 0.4 10^3/uL (0.0-0.7); EOSINOPHILS % (AUTO) 3.9 %; HCT - HEMATOCRIT 45.8 % (42.0-52.0); HGB - HEMOGLOBIN 14.8 g/dL (14.0-18.0); LYMPHOCYTES # (AUTO) 2.5 10^3/uL (1.5-3.5); LYMPHOCYTES % (AUTO) 26.7 %; MEAN CORPUSCULAR HEMOGLOBIN 30.4 pg (27.0-31.0); MEAN CORPUSCULAR HGB CONC 32.3 g/dL (32.0-36.0); MEAN PLATELET VOLUME 9.9 fL (7.4-11.4); MONOCYTES # (AUTO) 0.9 10^3/uL (0.0-1.0); MONOCYTES % (AUTO) 9.4 %; NEUTROPHILS # (AUTO) 5.4 10^3/uL (1.5-6.6); NEUTROPHILS % (AUTO) 58.8 %; PLT - PLATELET COUNT 217 10^3/uL (130-450); RED BLOOD COUNT 4.87 10^6/uL (4.70-6.10); RED CELL DISTRIBUTION WIDTH 13.6 % (12.0-15.0); WHITE BLOOD COUNT 9.2 x10^3/uL (4.8-10.8)
[2021-05-22 18:14] LABS: ALBUMIN 5.1 g/dL (3.2-5.5); ALBUMIN/GLOBULIN RATIO 2.1 (1.0-2.2); BILIRUBIN,TOTAL 0.7 mg/dL (0.2-1.0); CALCIUM 9.9 mg/dL (8.5-10.3); CREATININE 0.7 mg/dL (0.6-1.2); POTASSIUM 3.6 mmol/L (3.5-5.0); TOTAL PROTEIN 7.5 g/dL (6.7-8.2)
== END 2021-05-22 23:59 | disposition home or self-care (01) ==
LOC: LAB.N 08:00
PROVIDERS: ATTEND Family Medicine
DX: R19.4 Change in bowel habit (principal)
CPT/HCPCS: 36415; 80053; 85025

== ENCOUNTER 2021-05-23 08:00 | Outpatient (CLI) | payer MEDICARE, OTHER | END 2021-05-23 23:59 | disposition home or self-care (01) | LOC: LAB.N 08:00 | PROVIDERS: ATTEND Family Medicine | DX: R19.4 Change in bowel habit (principal) | CPT/HCPCS: 81599; 83630; 83993; 87045; 87329; 87427; 87449; 87493 ==

== ENCOUNTER 2022-04-23 12:32 | Outpatient (CLI) | payer MEDICARE, OTHER ==
--- NOTE | 2022-04-23 18:09 | MRI Report ---
PROCEDURE: Lumbar Spine W/O INDICATIONS: LUMBAR STENOSIS TECHNIQUE: Noncontrast sagittal T1 spin echo and T2 fast echo, sagittal STIR, axial T1 and T2 fast spin echo thr ough the lumbar spine. In cases with scoliosis, additional coronal T2 fast spin echo may be performe d. COMPARISON: Correlation is made with prior abdomen and pelvis CT, 03/01/2020 FINDINGS: Image quality: Diagnostic, with note made of motion artifact. Alignment and Curvature: There is minimal retrolisthesis seen at the L1-L2 level.. Bone Marrow: Marrow is of normal overall signal. No acute vertebral body compression fractures. Spinal Cord: Conus medullaris terminates at the T12-L1 level. Visualized cord demonstrates normal s ignal and size. Paraspinous Soft Tissues: No paravertebral masses. Along the medial aspect of the left kidney, ther e is a 1.5 cm simple appearing cyst. T12-L1: No significant abnormality is seen. L1-L2: Moderate loss of disc height and signal are seen. Moderate disc bulge is seen, which is ec centric to the right. Mild facet hypertrophy is seen. There is a central/right disc protrusion, whi ch continues into the right neural foramen. Note is made of an annular fissure posteriorly. There is at least moderate left-sided and moderate to severe right-sided neuroforaminal narrowing. Compressio n is seen upon the exiting nerve roots. Moderate central canal narrowing is seen. L2-L3: Mild loss of disc height and disc signal are seen. Moderate disc bulge is seen at this l evel. There is a central/left disc protrusion. Note is made of an annular fissure posteriorly. At least moderate facet hypertrophy is seen, left worse than right. Moderate to severe bilateral neural foraminal narrowing can be seen, with associated compression upon the exiting nerve roots. Moderate t o severe central canal narrowing is seen, as on series 5 image 21. L3-L4: Mild loss of disc height and disc signal are seen. Mild to moderate disc bulge is seen, wi th a central disc protrusion. At least moderate facet hypertrophy is seen. Associated hypertrophy of the ligamentum flavum can be seen. Moderate to severe bilateral neural foraminal narrowing can be se en, with associated compression upon the exiting nerve roots. Moderate central canal narrowing is s een. L4-L5: The disc height is well-preserved. There is loss of disc signal seen. Moderate disc bulge is seen, which is eccentric to the left. There is a central/left disc protrusion, which continues into the left neural foramen. Prominent facet hypertrophy is seen. Moderate to severe bilateral neuroforam inal narrowing can be seen, left worse than right. Compression is seen upon the exiting nerve roots. Moderate to severe central canal narrowing is seen, as on series 5 image 35. L5-S1: Mild loss of disc height and disc signal are seen. Mild to moderate disc bulge is seen, with a central/right disc extrusion, with superior migration of the disc material. This can be seen on se ledy 2 image 8 and on series 5 image 38, measuring 1.8 cm craniocaudal. Moderate to severe bilateral facet hypertrophy is seen. Moderate to severe bilateral neural foraminal narrowing can be seen, with associated compression upon the exiting nerve roots. Moderate to severe central canal narrowing is seen, as on series 5 image 38. IMPRESSION: At L5-S1, there is a central/right disc extrusion, with superior migration of disc material. The extr uded disc fragment measures 1.8 cm craniocaudal. Multiple levels of relatively prominent lumbar spine degenerative change can be seen, with moderate t o severe central canal narrowing at L2-L3, L4-L5, and L5-S1. Several sites of significant neuroforaminal narrowing can be seen, with associated exiting nerve root compression. Reviewed by: Gaudencio Chopra MD on 04/23/2022 5:07 PM DRE Approved by: Gaudencio Chopra MD on 04/23/2022 5:07 PM DRE Station ID: [id number]
== END 2022-04-23 12:33 | disposition home or self-care (01) ==
LOC: DI 12:32
PROVIDERS: ATTEND Neurological Surgery
DX: M51.36 Other intervertebral disc degeneration, lumbar region (principal); M48.061 Spinal stenosis, lumbar region without neurogenic claudication; M51.37 Other intervertebral disc degeneration, lumbosacral region; M48.07 Spinal stenosis, lumbosacral region; M51.27 Other intervertebral disc displacement, lumbosacral region; M47.816 Spondylosis without myelopathy or radiculopathy, lumbar region; M47.817 Spondylosis without myelopathy or radiculopathy, lumbosacral region

== ENCOUNTER 2022-05-24 08:00 | Outpatient (CLI) | payer MEDICARE, OTHER | END 2022-05-24 23:59 | disposition home or self-care (01) | LOC: LAB.N 08:00 | PROVIDERS: ATTEND Family Medicine | DX: R42 Dizziness and giddiness (principal) | CPT/HCPCS: 82962 ==

== ENCOUNTER 2022-11-28 08:00 | Outpatient (CLI) | payer MEDICARE, OTHER | END 2022-11-28 23:59 | disposition home or self-care (01) | LOC: LAB.N 08:00 | PROVIDERS: ATTEND Specialist | DX: R05.9 Cough, unspecified (principal); Z20.822 Contact with and (suspected) exposure to COVID-19 ==

== ENCOUNTER 2022-11-28 14:50 | Outpatient (CLI) | payer MEDICARE, OTHER ==
--- NOTE | 2022-11-28 16:41 | XRAY Report ---
PROCEDURE: Chest 2 View X-Ray INDICATIONS: COUGH TECHNIQUE: 2 views of the chest were acquired. COMPARISON: Plain films dated 03/05/2021 FINDINGS: Surgical changes and devices: None. Lungs and pleura: No pleural effusions or pneumothorax. Lungs are clear. Mediastinum: Mediastinal contours appear normal. Heart size is normal. Bones and chest wall: No suspicious bony lesions. Overlying soft tissues appear unremarkable. IMPRESSION: No acute process. Reviewed by: Zain Sauceda MD on 11/28/2022 4:40 PM PDT Approved by: Zain Sauceda MD on 11/28/2022 4:40 PM PDT Station ID: [id number]
== END 2022-11-28 23:59 | disposition home or self-care (01) ==
LOC: DI.N 14:50
PROVIDERS: ATTEND Specialist
DX: R05.9 Cough, unspecified (principal)

== ENCOUNTER 2023-05-13 09:35 | Outpatient (CLI) | payer MEDICARE, OTHER ==
[2023-05-13 12:04] LABS: BASOPHILS # (AUTO) 0.1 10^3/uL (0.0-0.1); BASOPHILS % (AUTO) 0.7 %; EOSINOPHILS # (AUTO) 0.4 10^3/uL (0.0-0.7); EOSINOPHILS % (AUTO) 4.6 %; HCT - HEMATOCRIT 45.6 % (42.0-52.0); HGB - HEMOGLOBIN 15.1 g/dL (14.0-18.0); LYMPHOCYTES # (AUTO) 1.3 10^3/uL (1.5-3.5); LYMPHOCYTES % (AUTO) 17.8 %; MEAN CORPUSCULAR HGB CONC 33.1 g/dL (32.0-36.0); MEAN CORPUSCULAR VOLUME 90.7 fL (80.0-94.0); MEAN PLATELET VOLUME 9.6 fL (7.4-11.4); MONOCYTES # (AUTO) 0.8 10^3/uL (0.0-1.0); MONOCYTES % (AUTO) 10.6 %; NEUTROPHILS % (AUTO) 65.9 %; PLT - PLATELET COUNT 188 10^3/uL (130-450); RED BLOOD COUNT 5.03 10^6/uL (4.70-6.10); RED CELL DISTRIBUTION WIDTH 13.3 % (12.0-15.0); WHITE BLOOD COUNT 7.5 x10^3/uL (4.8-10.8)
[2023-05-13 12:28] LABS: ALBUMIN 4.6 g/dL (3.2-5.5); ALBUMIN/GLOBULIN RATIO 2.2 (1.0-2.2); ALKALINE PHOSPHATASE 52 IU/L (42-121); ALT ALANINE AMINOTRANSFERASE 40 IU/L (10-60); AST ASPARTATE AMINOTRANSFERASE 29 IU/L (10-42); BILIRUBIN,TOTAL 0.6 mg/dL (0.2-1.0); BUN - BLOOD UREA NITROGEN 11 mg/dL (6-20); CALCIUM 9.3 mg/dL (8.5-10.3); CARBON DIOXIDE - CO2 32 mmol/L (21-32); CHLORIDE 106 mmol/L (101-111); CHOL/HDL RATIO 4.1 (<5.0); CHOLESTEROL 151 mg/dL; CREATININE 0.8 mg/dL (0.6-1.3); GFR - MDRD 93 (>89); GLUCOSE 157 mg/dL (74-104); HDL CHOLESTEROL 37 mg/dL; LDL CHOLESTEROL,CALCULATED 61 mg/dL; LDL/HDL RATIO 1.6 (<3.6); POTASSIUM 4.1 mmol/L (3.5-4.5); SODIUM 143 mmol/L (135-145); TOTAL PROTEIN 6.7 g/dL (6.4-8.9); TRIGLYCERIDES 263 mg/dL (48-352); VLDL CHOLESTEROL 53 mg/dL
[2023-05-13 12:33] LABS: CREATININE,URINE 161.2 mg/dL; MICROALBUM/CREATININE RATIO,UR 14.9 ug/mg (<30.0); MICROALBUMIN,URINE 2.4 mg/dL
[2023-05-13 12:35] LABS: THYROID STIMULATING HORMONE 3.83 uIU/mL (0.34-5.60)
[2023-05-13 12:52] LABS: ESTIMATED AVERAGE GLUCOSE 128 mg/dL (70-100); HEMOGLOBIN A1c% 6.1 % (4.27-6.07)
== END 2023-05-13 09:36 | disposition home or self-care (01) ==
LOC: LAB.N 09:35
PROVIDERS: ATTEND Family Medicine
DX: I10 Essential (primary) hypertension (principal); E78.5 Hyperlipidemia, unspecified; E11.9 Type 2 diabetes mellitus without complications; E03.9 Hypothyroidism, unspecified
CPT/HCPCS: 36415; 80053; 80061; 82043; 82570; 83036; 83721; 84443; 85025

== ENCOUNTER 2023-10-10 15:30 | Outpatient (CLI) | payer MEDICARE, OTHER ==
--- NOTE | 2023-10-10 23:21 | XRAY Report ---
PROCEDURE: Finger(s) RT INDICATIONS: SUPERFICIAL FOREIGN BODY OF RIGHT MIDDLE FINGER TECHNIQUE: AP hand, 2 views of the third finger(s) acquired. COMPARISON: None. FINDINGS: Bones: No fractures or dislocations. Mild to moderate degenerative changes. No suspicious bony lesi ons. Soft tissues: No suspicious soft tissue calcifications or masses. Third digit palmar tuft linear f oreign body measuring 0.3 cm. IMPRESSION: Third digit palmar tuft small linear foreign body. Reviewed by: Reynold Chow MD on 10/10/2023 11:19 PM PDT Approved by: Reynold Chow MD on 10/10/2023 11:19 PM PDT Station ID: [id number]
== END 2023-10-10 15:45 | disposition home or self-care (01) ==
LOC: DI.N 15:30
PROVIDERS: ATTEND Physician Assistant
DX: S60.452A Superficial foreign body of right middle finger, initial encounter (principal)

== ENCOUNTER 2023-12-12 14:19 | Outpatient (CLI) | payer OTHER ==
--- NOTE | 2023-12-13 15:37 | MRI Report ---
Knee RT WO CLINICAL INFORMATION: 78 years of age, Male, R KNEE PAIN. COMPARISON: None Technique: Multisequence, multiplanar MRI of the right knee was performed without intravenous contras t. FINDINGS: Menisci: In the medial meniscus, there is complex tear of the posterior horn, extending to the menisc us body, there is near maceration of the meniscus body with a meniscus flap extending into the inferi or gutter. The lateral meniscus is unremarkable. Cruciate ligaments: The anterior and posterior cruciate ligaments are intact. MCL/LCL: Medial bowing of the MCL. The MCL is intact. The biceps femoris tendon is unremarkable. The fibular collateral ligament is unremarkable. The iliotibial band is intact. The popliteus muscle and tendon also appear intact. Extensor mechanism: The quadricep tendon is unremarkable. The patella tendon is unremarkable. Mild pr epatellar bursitis. Patellofemoral joint: Alignment within the patellofemoral joint is normal. The patellofemoral ligame nts are intact. Large area of full-thickness chondral loss in the medial patellar facet. Mild chondra l irregularity in the medial trochlea, in the central trochlea. Cartilage of the lateral trochlea is grossly well maintained. Cartilage and bone: In the medial compartment, there is large areas of chondral denudation in the lori ghtbearing portion of the femoral condyle, extending to the anterior nonweightbearing portion of the femoral condyle. Additional high-grade chondral loss in the posterior weightbearing portion of the fe moral condyle. Mild chondral thinning in the medial tibial plateau with mild subchondral marrow edema . In the lateral compartment, there is small area of cartilage delamination in the weightbearing port ion of the femoral condyle. No acute fracture. Miscellaneous: Moderate knee effusion. Small popliteal cyst. Multiple intra-articular body in the int ercondylar notch. For reference, there is intra-articular body between the posterior aspect ACL and t he PCL, measuring 7 mm (series 5, image 21). Multiple small intra-articular bodies about the body of the medial meniscus.Normal muscle signal intensity and morphology. No vascular anomaly. Diffuse subcu taneous edema of the knee. IMPRESSION: 1.Extensive tear of the medial meniscus. 2.Mild prepatellar bursitis. 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 4.Moderate knee effusion with multiple intra-articular bodies. Reviewed by: Meagan Gutierrez MD on 12/13/2023 3:35 PM PDT Approved by: Meagan Gutierrez MD on 12/13/2023 3:35 PM PDT Station ID: [id number]
== END 2023-12-12 14:20 | disposition home or self-care (01) ==
LOC: DI 14:19
PROVIDERS: ATTEND Family Medicine
DX: S83.241A Other tear of medial meniscus, current injury, right knee, initial encounter (principal); M70.41 Prepatellar bursitis, right knee; M11.261 Other chondrocalcinosis, right knee; M25.461 Effusion, right knee; M23.41 Loose body in knee, right knee

== ENCOUNTER 2023-12-13 15:35 | Outpatient (CLI) | payer MEDICARE, OTHER ==
--- NOTE | 2023-12-15 01:40 | XRAY Report ---
PROCEDURE: Chest 2V INDICATIONS: COUGH TECHNIQUE: 2 views of the chest were acquired. COMPARISON: Chest radiographs 11/28/2022 FINDINGS: Surgical changes and devices: None. Lungs and pleura: No pleural effusions or pneumothorax. Lungs are clear. Mediastinum: Mediastinal contours appear normal. Heart size is normal. Bones and chest wall: No suspicious bony lesions. Overlying soft tissues appear unremarkable. IMPRESSION: No acute cardiopulmonary process. Reviewed by: Jeevan Bragg MD on 12/15/2023 1:38 AM PDT Approved by: Jeevan Bragg MD on 12/15/2023 1:38 AM PDT Station ID: [id number]
== END 2023-12-13 15:36 | disposition home or self-care (01) ==
LOC: DI 15:35
PROVIDERS: ATTEND Family Medicine
DX: R05.9 Cough, unspecified (principal)

== ENCOUNTER 2024-01-28 12:48 | Outpatient (CLI) | payer OTHER ==
--- NOTE | 2024-01-28 16:04 | CT Report ---
PROCEDURE: Chest WO INDICATIONS: DYSPNEA TECHNIQUE: A CT scan of the chest was performed. Intravenous contrast media was not administered. Images were re corded and evaluated at appropriate window settings. Reformats: axial MIP of the chest, coronal and s agittal. For radiation dose reduction, the following was used: automated exposure control, adjustment of mA and/or kV according to patient size. COMPARISON: 12/13/2023 radiograph, 07/07/2022 CT FINDINGS: Image quality: Diagnostic Lungs and pleura:Moderate emphysematous changes. No dense consolidation or pleural effusion. Mild bro nchial thickening is present. There are micronodules and granulomas, overall low suspicion, consider optional annual follow-up per Fleischner guidelines versus low dose lung cancer screening. (For examp le right lateral lung ). Mediastinum, heart, and esophagus: No hiatal hernia. Coronary and annular calcifications. Trace pericardial thickening versus effusion. Prominent mediasti nal lymph nodes are present, possibly reactive to chronic lung disease. Attention on follow-up. Chest wall and thyroid: Unremarkable Upper abdomen: No gross abnormality on these noncontrast images. Possible small left adrenal nodule v ersus thickening again seen. Bones: There are degenerative changes. IMPRESSION: Moderate emphysematous changes and possible chronic bronchitis. No dense airspace disease or pleural effusion. There are micronodules and granulomas, overall low suspicion, consider optional annual follow-up per Fleischner guidelines versus low dose lung cancer screening. Other findings as above Reviewed by: William Montgomery MD on 01/28/2024 4:03 PM PDT Approved by: William Montgomery MD on 01/28/2024 4:03 PM PDT Station ID: [id number]
== END 2024-01-28 12:49 | disposition home or self-care (01) ==
LOC: DI 12:48
DX: J43.9 Emphysema, unspecified (principal); R91.8 Other nonspecific abnormal finding of lung field